=== PATIENT | female | born 1950 | race Caucasian/White ===

== ENCOUNTER 2019-10-30 18:46 | Inpatient (IN) | payer MEDICARE ==
[2019-10-30] MEDS ORDERED: diphenhydrAMINE 25 MG CAP PO PRN (22:31)
[2019-10-30] MEDS: ACETAMINOPHEN TAB 500 MG TAB PO SCH (22:41)
[2019-10-31] MEDS: ACETAMINOPHEN TAB 500 MG TAB PO SCH (03:57)
[2019-10-31] MEDS: HYDROcodone/APAP 5-325MG 1 EACH TAB PO PRN ×3 (06:39→16:30)
[2019-10-31 07:09] LABS: Basophils # (A) 0.1 k/uL (0-0.2); Basophils % (A) 1 %; Eosinophils # (A) 0.3 k/uL (0-0.7); Eosinophils % (A) 3 %; HCT 34.2 % (34.0-46.0); HGB 10.3 gm/dL (11.4-16.0); Hypochromasia Moderate; Lymphocytes # (A) 1.1 k/uL (1.0-4.8); Lymphocytes % (A) 9 %; MCH 27.2 pg (25.0-35.0); MCHC 30.2 g/dL (31.0-37.0); MCV 90.1 fL (80.0-100.0); Mean Platelet Volume 6.6; Monocytes # (A) 0.6 k/uL (0-1.0); Monocytes % (A) 5 %; Neutrophils # (A) 9.6 k/uL (1.3-7.7); Neutrophils % (A) 81 %; Platelet Count 384 k/uL (150-450); RDW 13.7 % (11.5-15.5); WBC 11.9 k/uL (3.8-10.6)
[2019-10-31 07:19] LABS: INR 0.9 (<1.2)
[2019-10-31 07:20] LABS: Partial Thromboplastin Time 23.9 sec (22.0-30.0); Potassium 4.5 mmol/L (3.5-5.1); Prothrombin Time 9.6 sec (9.0-12.0)
[2019-10-31 07:21] LABS: Albumin 3.2 g/dL (3.5-5.0); Bilirubin, Delta 0.3 mg/dL (0.0-0.2); Bilirubin,Unconjugated 0.1 mg/dL (0.0-1.1); Calcium 10.1 mg/dL (8.4-10.2); Magnesium 2.3 mg/dL (1.6-2.3); Total Bilirubin 0.4 mg/dL (0.2-1.3); Total Protein 6.2 g/dL (6.3-8.2)
[2019-10-31] MEDS: METOPROLOL TARTRATE 50 MG TAB PO SCH ×2 (08:18→22:13)
[2019-10-31] MEDS: lisinopriL 20 MG TAB PO SCH (08:18)
[2019-10-31] MEDS: SENNOSIDES 8.6 MG TAB PO SCH ×2 (08:18→22:17)
[2019-10-31] MEDS ORDERED: FAMOTIDINE 20 MG/2 ML VIAL IV SCH (09:00)
[2019-10-31] MEDS ORDERED: HEPARIN SODIUM,PORCINE 5,000 UNIT/ML 1 ML VIAL SQ SCH (09:00)
--- NOTE | 2019-10-31 09:03 | XR ---
EXAMINATION TYPE: XR chest 2V DATE OF EXAM: 10/31/2019 COMPARISON: None HISTORY: 69 year-old female shortness of breath TECHNIQUE: Frontal and lateral views FINDINGS: Heart borderline enlarged. Rightward patient rotation alters the normal cardiomediastinal contours. A therosclerotic arch calcifications. Mild interstitial prominence has a chronic appearance. No consoli dation or pleural effusion. IMPRESSION: Borderline heart size. Chronic appearing changes without acute cardiopulmonary process.
--- NOTE | 2019-10-31 10:05 | US ---
EXAMINATION TYPE: US venous doppler duplex LE BI DATE OF EXAM: 10/31/2019 9:44 AM COMPARISON: NONE CLINICAL HISTORY: 69-year-old female Rule out DVT. Pain SIDE PERFORMED: Bilateral FINDINGS: TECHNIQUE: The lower extremity deep venous system is examined utilizing real time linear array sonog robbin with graded compression, doppler sonography and color-flow sonography. VESSELS IMAGED: External Iliac Vein (EIV) Common Femoral Vein Deep Femoral Vein Greater Saphenous Vein * Femoral Vein Popliteal Vein Small Saphenous Vein * Urgent Care Physician notes: Exam limitations due to body habitus. Right Leg: Appears negative for DVT Left Leg: Appears negative for DVT IMPRESSION: Some limitations due to patient body habitus. No visualized DVT within the bilateral lower extremitie s as seen from the groin to the knees.
--- NOTE | 2019-10-31 11:00 | P.CONS ---
History of Present Illness - Reason for Consult Consult date: 10/31/19 Wound care - History of Present Illness This is a 69-year-old [place] female being seen on [address] for nonhealing ulcerations to the right lower extremity. Patient has ulceration to the posterior and lateral aspect of the right lower extremity. Patient's been seen by wound care in the past in [place]. She has been applying triple antibiotic ointment and wrapping her legs at home. Patient has compression w raps including CircAid which she does wear. Patient's past medical history includes hypertension and cellulitis 2 years ago. Patient denies diabetes or smoking Review of Systems Review Of Systems: Constitutional: No fever, no chills, no night sweats. No weight change. No weakness, fatigue or lethargy. No daytime sleepiness. Integumentary:reports wounds, no lesions. No rash or pruritus. No unusual bruising. No change in hair or nails. Past Medical History Past Medical History: Hypertension, Skin Disorder Additional Past Medical History / Comment(s): pt was diagnosed with cellulits 2 years ago. pt has HTN and is currently taking lisinopril and metoprolol for management. History of Any Multi-Drug Resistant Organisms: None Reported Past Surgical History: Section, Cholecystectomy, Joint Replacement, Tonsillectomy, Tubal Ligation Additional Past Surgical History / Comment(s): pt states she has had 3 c- sections, tubal ligation, knee replacement, and partial knee replacement removal. Past Anesthesia/Blood Transfusion Reactions: No Reported Reaction Past Psychological History: No Psychological Hx Reported Smoking Status: Never smoker Past Alcohol Use History: None Reported Past Drug Use History: None Reported Medications and Allergies Home Medications Medication Instructions Recorded Confirmed Type Acetaminophen Tab [Tylenol Tab] 500 mg PO Q6H 10/30/19 10/30/19 History Metoprolol Tartrate [Lopressor] 50 mg PO BID 10/30/19 10/30/19 History lisinopriL 20 mg PO DAILY 10/30/19 10/30/19 History Allergies Allergy/AdvReac Type Severity Reaction Status Date / Time No Known Allergies Allergy Verified 10/30/19 21:43 Physical Exam Vitals: Vital Signs Temp Pulse Resp BP Pulse Ox 10/31/19 08:00 98.7 F 83 16 135/59 96 10/31/19 04:00 98 F 75 20 147/65 98 10/31/19 00:00 98.5 F 84 20 148/70 100 10/30/19 21:41 98.6 F 71 22 142/61 99 Intake and Output 10/30/19 10/31/19 10/31/19 22:59 06:59 14:59 Intake Total 240 Balance 240 Intake: Oral 240 Other: Voiding Method Incontinent Incontinent # Voids 5 2 Weight 108.5 kg Physical exam: General Appearance: Alert, cooperative, no distress, appears stated age. Skin: Full thickness ulceration to the anterior aspect of the right lower extremity measuring approximately 3 x 6 x 0.4 cm with fatty layer exposure with significant amount of serous drainage minimal granulation seen within wound bed, large amount of adherent Slough, periwound shows edema and erythema, right lateral ulceration measures approximately 1 x 1 x 0.1 cm with fat layer exposure moderate slough noted and minimal granulation seen within the wound bed no drainage noted. Right lower extremity is edematous and weepy with the redness circumferential. all other Skin color, texture, tugor normal, no rashes or lesions. Neurologic: Alert oriented x3 Results CBC & Chem 7: 10/31/19 06:49 10/31/19 06:49 Labs: Abnormal Lab Results - Last 24 Hours (Table) 10/31/19 10/31/19 Range/Units 06:49 06:49 WBC 11.9 H (3.8-10.6) k/uL Hgb 10.3 L (11.4-16.0) gm/dL MCHC 30.2 L (31.0-37.0) g/dL Neutrophils # 9.6 H (1.3-7.7) k/uL Chloride 109 H (98-107) mmol/L BUN 24 H (7-17) mg/dL Creatinine 1.30 H (0.52-1.04) mg/dL Glucose 121 H (74-99) mg/dL Delta Bilirubin 0.3 H (0.0-0.2) mg/dL Total Protein 6.2 L (6.3-8.2) g/dL Albumin 3.2 L (3.5-5.0) g/dL Assessment and Plan (1) Nonhealing ulcer of right lower leg with fat layer exposed Current Visit: Yes Status: Acute Code(s): L97.912 - NON-PRS [facility] UNSP PRT OF R LOW LEG W FAT LAYER EXPOSED SNOMED Code(s): 69791764 (2) Nonhealing ulcer of left lower extremity limited to breakdown of skin Current Visit: Yes Status: Acute Code(s): L97.921 - NON-PRS [facility] UNSP PRT OF L LOW LEG LIMITED TO BRKDWN SKIN SNOMED Code(s): 58278317 (3) Chronic venous hypertension (idiopathic) with ulcer of right lower extremity Current Visit: Yes Status: Acute Code(s): I87.311 - CHRONIC VENOUS HYPERTENSION W ULCER OF R LOW EXTREM; L97.919 - NON-PRS [facility]RON[facility] UNSP PRT OF R LOW LEG W UNSP SEVERITY SNOMED Code(s): 658781503175958 (4) Chronic venous hypertension (idiopathic) with inflammation of left lower extremity Current Visit: Yes Status: Acute Code(s): I87.322 - CHRONIC VENOUS HYPERTENSION W INFLAMMATION OF L LOW EXTREM SNOMED Code(s): 000471895 Plan: Right lower survey apply honey alginate to anterior and lateral ulcerations, saline moistened gauze, dry gauze, rolled gauze and secure with paper tape and wrap with a Wilian wrap. Left lower extremity apply zinc. Cream to the lower extremity wrap with Wilian wrap. Patient to elevate legs 30 minutes 3 times a day. Patient would benefit from wound care and outpatient setting. Thank you kindly for the consultation any questions please contact the wound care center DNP note has been reviewed and discussed with Dr. Lucas and the impression and plan of care has been directed as dictated.
--- NOTE | 2019-10-31 12:28 | P.HPIM ---
History of Present Illness H&P Date: 10/31/19 Chief Complaint: Leg swelling Patient is a 69-year-old female with a known history of hypertension, chronic bilateral lower activity swelling, osteoarthritis and morbid obesity with BMI 39.8 initially presented to [facility] with complaints of bilateral lower extremity swelling and redness and purulent drainage from the wounds/ulcers especially on the right lower extremity which has been getting worse for the past 1 month. Patient says that she has not been walking very well for the past one half year since her right knee arthroplasty followed by osteomyelitis. Patient was previously seen at [facility] by the patient moved to [place] few months ago. Denied any history of coronary artery disease or history of prior CVA. No complaints of fever or chills. No nausea vomiting or abdominal pain or diarrhea. No dysuria or hematuria. Patient was transferred to [facility] for evolution of wounds and antibiotics. Laboratory data showed WBC 11.9, hemoglobin 10.3, platelets 384 Sodium 141, potassium 4.5, chloride 109, BUN 24 and creatinine 1.3 Albumin 3.2 Chest x-ray showed borderline heart size. Chronic appearing changes without acute cardiopulmonary process. Bilateral lower extremity venous duplex showed some limitations due to patient's body habitus. No visualized DVT within the bilateral lower extremities seen from the groin to the knees. Review of Systems Constitutional: Patient denies any fever or chills . No generalized weakness or weight loss. Abdomen: Patient denied nausea vomiting and diarrhea and abdominal pain. Cardiovascular: Patient denies any chest pain or short of breath no palpitations. Respiratory: patient denied any cough is from production. No shortness of henry ath Neurologic: Patient denied any numbness or tingling headache. Musculoskeletal: Patient denies any complaints of joint swelling or deformity. Skin: Bilateral lower extremity swelling and redness and weeping ulcers. Psychiatric: Negative Endocrine: No heat or cold intolerance. No recent weight gain. Genitourinary: No dysuria or hematuria. All other 14 point ROS negative except the above Past Medical History Past Medical History: Hypertension, Skin Disorder Additional Past Medical History / Comment(s): pt was diagnosed with cellulits 2 years ago. pt has HTN and is currently taking lisinopril and metoprolol for man agement. History of Any Multi-Drug Resistant Organisms: None Reported Past Surgical History: Section, Cholecystectomy, Joint Replacement, Ton sillectomy, Tubal Ligation Additional Past Surgical History / Comment(s): pt states she has had 3 c- sections, tubal ligation, knee replacement, and partial knee replacement re moval. Past Anesthesia/Blood Transfusion Reactions: No Reported Reaction Past Psychological History: No Psychological Hx Reported Smoking Status: Never smoker Past Alcohol Use History: None Reported Past Drug Use History: None Reported Medications and Allergies Home Medications Medication Instructions Recorded Confirmed Type Acetaminophen Tab [Tylenol Tab] 500 mg PO Q6H 10/30/19 10/30/19 History Metoprolol Tartrate [Lopressor] 50 mg PO BID 10/30/19 10/30/19 History lisinopriL 20 mg PO DAILY 10/30/19 10/30/19 History Allergies Allergy/AdvReac Type Severity Reaction Status Date / Time No Known Allergies Allergy Verified 10/30/19 21:43 Physical Exam Vitals: Vital Signs Temp Pulse Resp BP Pulse Ox 10/31/19 08:00 98.7 F 83 16 135/59 96 10/31/19 04:00 98 F 75 20 147/65 98 10/31/19 00:00 98.5 F 84 20 148/70 100 10/30/19 21:41 98.6 F 71 22 142/61 99 Intake and Output 10/30/19 10/31/19 10/31/19 22:59 06:59 14:59 Intake Total 240 Balance 240 Intake: Oral 240 Other: Voiding Method Incontinent Incontinent # Voids 5 2 Weight 108.5 kg PHYSICAL EXAMINATION: Patient is lying in the bed comfortably, no acute distress, awake alert and oriented.. HEENT: Normocephalic. Neck is supple. Pupils reactive. Nostrils clear. Oral c avity is moist. Ears reveal no drainage. Neck reveals no JVD, carotid bruits, or thyromegaly. CHEST EXAMINATION: Trachea is central. Symmetrical expansion. Bibasilar diminished air entry. Lung mchugh clear to auscultation and percussion. CARDIAC: Normal S1, S2 with no gallops. No murmurs ABDOMEN: Soft. Bowel sounds normal. No organomegaly. No abdominal bruits. Extremities: reveal no edema. No clubbing or cyanosis Neurologically awake, alert, oriented x3 with well-coordinated movements. No focal deficits noted Skin: Bilateral lower extremity swelling with redness and ulcers seen below the knee bilaterally. Purulent drainage and slugging of the skin noted.. Minimal tenderness. Warm to touch. Psychiatric: Coperative. Nonsuicidal Musculoskeletal: No joint swelling or deformity. Normal range of motion. Results CBC & Chem 7: 10/31/19 06:49 10/31/19 06:49 Labs: Abnormal Lab Results - Last 24 Hours (Table) 10/31/19 10/31/19 Range/Units 06:49 06:49 WBC 11.9 H (3.8-10.6) k/uL Hgb 10.3 L (11.4-16.0) gm/dL MCHC 30.2 L (31.0-37.0) g/dL Neutrophils # 9.6 H (1.3-7.7) k/uL Chloride 109 H (98-107) mmol/L BUN 24 H (7-17) mg/dL Creatinine 1.30 H (0.52-1.04) mg/dL Glucose 121 H (74-99) mg/dL Delta Bilirubin 0.3 H (0.0-0.2) mg/dL Total Protein 6.2 L (6.3-8.2) g/dL Albumin 3.2 L (3.5-5.0) g/dL Thrombosis Risk Factor Assmnt - DVT/VTE Prophylaxis DVT/VTE Prophylaxis: Pharmacologic Prophylaxis ordered - Choose All That Apply Any of the Below Risk Factors Present?: No Other Risk Factors: Yes Each Risk Factor Represents 2 Points: Age 61-74 years, Patient confined to bed Other congenital or acquired thrombophilia - If yes, enter type in comment: No Thrombosis Risk Factor Assessment Total Risk Factor Score: 4 Thrombosis Risk Factor Assessment Level: Moderate Risk Assessment and Plan Assessment: Bilateral lower extremity infected venous stasis ulcers with surrounding cellulitis. Chronic bilateral lower activity venous stasis and swelling Hypertension Chronic kidney disease stage III. Patient creatinine not known. Morbid obesity with BMI 39.8 Osteoarthritis History of right total knee arthroplasty and osteomyelitis about one half year ago DVT prophylaxis with heparin subcu Plan: Patient will be continued on antibiotics in the form of cefazolin. Continue with IV hydration and monitor renal function. Continue with the wound care and ID service will be consulted. Follow-up culture reports and further recommendations based on the clinical course. Time with Patient: Greater than 30
[2019-10-31] MEDS: HEPARIN SODIUM,PORCINE 5,000 UNIT/ML 1 ML VIAL SQ SCH (16:30)
[2019-10-31] MEDS: SODIUM CHLORIDE 0.9% 1,000 ML IV SCH ×2 (22:12→23:51)
[2019-10-31] MEDS: ACETAMINOPHEN TAB 325 MG TAB PO PRN (22:13)
[2019-11-01] MEDS: SODIUM CHLORIDE 0.9% 1,000 ML IV SCH (00:03)
[2019-11-01] MEDS: HYDROcodone/APAP 5-325MG 1 EACH TAB PO PRN ×3 (00:40→23:48)
[2019-11-01] MEDS: hydrALAZINE HCL 25 MG TAB PO PRN ×2 (00:41→04:21)
[2019-11-01] MEDS: HEPARIN SODIUM,PORCINE 5,000 UNIT/ML 1 ML VIAL SQ SCH ×3 (00:42→16:37)
--- NOTE | 2019-11-01 00:42 | P.CONS ---
History of Present Illness - Reason for Consult Consult date: 10/31/19 Bilateral lower extremity wound and cellulitis Requesting physician: Rojelio Contreras - Chief Complaint Bilateral leg swelling and redness x one month - History of Present Illness Patient is 69 year female with a past medical history significant for 1-2 lower extremity diffuse swelling and venous stasis and cellulitis in this patient previous history of lower extremity cellulitis patient presented to send this Hospital with complaints of bilateral lower extremity swelling and redness along with some drainage that has been getting worse for the last 1 month with significant worsening of the swelling redness and purulent drainage she went to the ER to be evaluated on arrival to the ER the patient was noticed to have elevated white count of 11.9 she did have a lower extremity Doppler dose was limited because of the body habitus but no obvious blood clots patient had been complaining of pain in the leg to be more of a dull aching at times sharp intensity is 6-7 out of 10 and no radiation with diffuse swelling and redness and purulent drainage but no foul-smelling patient was started on cefazolin and admitted to the hospital infectious disease was consulted for further management of diabetic therapy Review of Systems Positive point has been mentioned in the HPI rest of the systems are negative Past Medical History Past Medical History: Hypertension, Skin Disorder Additional Past Medical History / Comment(s): pt was diagnosed with cellulits 2 years ago. pt has HTN and is currently taking lisinopril and metoprolol for management. History of Any Multi-Drug Resistant Organisms: None Reported Past Surgical History: Section, Cholecystectomy, Joint Replacement, Tonsillectomy, Tubal Ligation Additional Past Surgical History / Comment(s): pt states she has had 3 c-sec tions, tubal ligation, knee replacement, and partial knee replacement removal. Past Anesthesia/Blood Transfusion Reactions: No Reported Reaction Past Psychological History: No Psychological Hx Reported Smoking Status: Never smoker Past Alcohol Use History: None Reported Past Drug Use History: None Reported Medications and Allergies Home Medications Medication Instructions Recorded Confirmed Type Acetaminophen Tab [Tylenol Tab] 500 mg PO Q6H 10/30/19 10/30/19 History Metoprolol Tartrate [Lopressor] 50 mg PO BID 10/30/19 10/30/19 History lisinopriL 20 mg PO DAILY 10/30/19 10/30/19 History Allergies Allergy/AdvReac Type Severity Reaction Status Date / Time No Known Allergies Allergy Verified 10/30/19 21:43 Physical Exam Vitals: Vital Signs Temp Pulse Resp BP Pulse Ox 10/31/19 12:00 64 16 173/71 10/31/19 11:39 16 10/31/19 08:00 98.7 F 83 16 135/59 96 10/31/19 04:00 98 F 75 20 147/65 98 10/31/19 00:00 98.5 F 84 20 148/70 100 10/30/19 21:41 98.6 F 71 22 142/61 99 Intake and Output 10/30/19 10/31/19 10/31/19 22:59 06:59 14:59 Intake Total 580 Balance 580 Intake: Intake, IV Titration 100 Amount ceFAZolin 2 gm In Sodium 100 Chloride 0.9% 50 ml @ 100 mls/hr IVPB Q8HR [facility] Rx# :[id number] Oral 480 Other: Voiding Method Incontinent Incontinent Incontinent # Voids 5 2 Weight 108.5 kg GENERAL DESCRIPTION: An 89 female lying in bed, no distress. No tachypnea or accessory muscle of respiration use. HEENT: Shows Pallor , no scleral icterus. Oral mucous membrane is dry. No pharyngeal erythema or thrush NECK: Trachea central, no thyromegaly. LUNGS: Unlabored breathing. Clear to auscultation anteriorly. No wheeze or crackle. HEART: S1, S2, regular rate and rhythm. No loud murmur ABDOMEN: Soft, no tenderness , guarding or rigidity, no organomegaly EXTREMITIES: Diffuse swelling of bilateral lower extremity in this patient did have ulceration on the right leg both anterior and posterior with some purulent drainage SKIN: No rash, no masses palpable. NEUROLOGICAL: The patient is awake, alert, oriented x3, mood and affect normal. Results CBC & Chem 7: 10/31/19 06:49 10/31/19 06:49 Labs: Abnormal Lab Results - Last 24 Hours (Table) 10/31/19 10/31/19 Range/Units 06:49 06:49 WBC 11.9 H (3.8-10.6) k/uL Hgb 10.3 L (11.4-16.0) gm/dL MCHC 30.2 L (31.0-37.0) g/dL Neutrophils # 9.6 H (1.3-7.7) k/uL Chloride 109 H (98-107) mmol/L BUN 24 H (7-17) mg/dL Creatinine 1.30 H (0.52-1.04) mg/dL Glucose 121 H (74-99) mg/dL Delta Bilirubin 0.3 H (0.0-0.2) mg/dL Total Protein 6.2 L (6.3-8.2) g/dL Albumin 3.2 L (3.5-5.0) g/dL Assessment and Plan Assessment: 1-patient with bilateral lower extremity venous stasis ulcer and cellulitis right greater than left. This patient did have diffuse swelling redness likely representing streptococcal cellulitis clinically doubt MRSA or gram-negative infection (1) Bilateral lower leg cellulitis Current Visit: Yes Status: Acute Code(s): L03.116 - CELLULITIS OF LEFT LOWER LIMB; L03.115 - CELLULITIS OF RIGHT LOWER LIMB SNOMED Code(s): 667391150 (2) Chronic venous hypertension (idiopathic) with inflammation of left lower extremity Current Visit: Yes Status: Acute Code(s): I87.322 - CHRONIC VENOUS HYPERTENSION W INFLAMMATION OF L LOW EXTREM SNOMED Code(s): 693727183 (3) Chronic venous hypertension (idiopathic) with ulcer of right lower extremity Current Visit: Yes Status: Acute Code(s): I87.311 - CHRONIC VENOUS HYPERTENSION W ULCER OF R LOW EXTREM; L97.919 - NON-PRS CHRONIC [facility] UNSP PRT OF R LOW LEG W UNSP SEVERITY SNOMED Code(s): 004562793838394 (4) Nonhealing ulcer of left lower extremity limited to breakdown of skin Current Visit: Yes Status: Acute Code(s): L97.921 - NON-PRS [facility] UNSP PRT OF L LOW LEG LIMITED TO BRKDWN SKIN SNOMED Code(s): 46582286 Plan: 1- cefazolin 2 g every 8 hours 2-local wound care per the wound care team however needs Wilian wrap to the legs to keep the swelling down We will follow on clinical condition and cultures to further adjust medication if needed Thank you for this consultation will follow this patient with you Time with Patient: Greater than 30
[2019-11-01] MEDS ORDERED: VANCOMYCIN IV PER PHARMACY 1 EACH MISC MISCELLANE PRN (08:41)
[2019-11-01] MEDS: FAMOTIDINE 20 MG TAB PO SCH (08:42)
[2019-11-01] MEDS: SENNOSIDES 8.6 MG TAB PO SCH ×2 (08:42→21:23)
[2019-11-01] MEDS: lisinopriL 20 MG TAB PO SCH (08:42)
[2019-11-01] MEDS: METOPROLOL TARTRATE 50 MG TAB PO SCH ×2 (08:42→21:23)
[2019-11-01] MEDS ORDERED: VANCOMYCIN 2,000 MG in SODIUM CHLORIDE 0.9% 500 ML 500 ML IVPB ONE (10:00)
--- NOTE | 2019-11-01 16:41 | PN ---
PROGRESS NOTE DATE OF SERVICE: 11/01/2019 REASON FOR FOLLOWUP: 1. Bilateral lower extremity wound cellulitis. 2. Bacteremia. INTERVAL HISTORY: Patient's clinical course complicated as the patient has developed bacteremia with blood cultures done at the outside facility has been reported positive for gram- positive cocci. The patient this morning is feeling weak, lethargic. Denies having any chest pain. No cough. No worsening pain in the lower extremity. No nausea, no vomiting. No abdominal pain or diarrhea. REVIEW OF SYSTEMS: Positive points have been mentioned in HPI. Rest of systems negative. PAST MEDICAL HISTORY: Reviewed. MEDICATIONS: Reviewed. PHYSICAL EXAMINATION: Blood pressure 155/71 with a pulse of 70, temperature 97.7. She is 94% on room air. General description is an elderly female, lying in bed in no distress. RESPIRATORY SYSTEM: Unlabored breathing, clear to auscultation anteriorly. HEART: S1, S2, regular. ABDOMEN: Soft, no tenderness. Legs are currently wrapped up. No obvious drainage on the dressing. LABS: No new labs have been obtained today. DIAGNOSTIC IMPRESSION AND PLAN: Patient with bilateral lower extremity wound, especially on the right leg with secondary cellulitis now with the outside facility blood culture positive for gram- positive cocci. We will add vancomycin, pharmacy to dose while watching her kidney function closely. Blood culture will be repeated to document clearance of bacteremia and will wait for the final on those cultures. Continue local wound care as ordered and monitor clinical course closely. RAMIROL / TISH: [id number] /
[2019-11-02] MEDS: HEPARIN SODIUM,PORCINE 5,000 UNIT/ML 1 ML VIAL SQ SCH ×3 (00:35→16:46)
[2019-11-02] MEDS: SODIUM CHLORIDE 0.9% 1,000 ML IV SCH ×3 (00:36→12:08)
[2019-11-02 06:55] LABS: Basophils # (A) 0.1 k/uL (0-0.2); Basophils % (A) 1 %; Eosinophils # (A) 0.5 k/uL (0-0.7); Eosinophils % (A) 4 %; HCT 32.9 % (34.0-46.0); Hypochromasia Moderate; Lymphocytes # (A) 1.5 k/uL (1.0-4.8); Lymphocytes % (A) 12 %; MCH 27.4 pg (25.0-35.0); MCHC 30.3 g/dL (31.0-37.0); MCV 90.4 fL (80.0-100.0); Mean Platelet Volume 7.5; Monocytes # (A) 0.6 k/uL (0-1.0); Monocytes % (A) 5 %; Neutrophils # (A) 9.4 k/uL (1.3-7.7); Neutrophils % (A) 77 %; Platelet Count 359 k/uL (150-450); RBC 3.64 m/uL (3.80-5.40); RDW 13.6 % (11.5-15.5); WBC 12.2 k/uL (3.8-10.6)
[2019-11-02 07:27] LABS: Calcium 9.3 mg/dL (8.4-10.2); Potassium 4.5 mmol/L (3.5-5.1)
[2019-11-02] MEDS ORDERED: VANCOMYCIN 2,000 MG in SODIUM CHLORIDE 0.9% 500 ML 500 ML IVPB SCH (08:00)
[2019-11-02] MEDS: HYDROcodone/APAP 5-325MG 1 EACH TAB PO PRN (09:09)
[2019-11-02] MEDS: FAMOTIDINE 20 MG TAB PO SCH (09:09)
[2019-11-02] MEDS: lisinopriL 20 MG TAB PO SCH (09:09)
[2019-11-02] MEDS: SENNOSIDES 8.6 MG TAB PO SCH ×2 (09:09→20:48)
[2019-11-02] MEDS: METOPROLOL TARTRATE 50 MG TAB PO SCH ×2 (09:09→20:48)
[2019-11-02] MEDS: VANCOMYCIN 2,000 MG in SODIUM CHLORIDE 0.9% 500 ML 500 ML IVPB SCH (16:47)
[2019-11-02] MEDS: hydrALAZINE HCL 25 MG TAB PO PRN (17:47)
--- NOTE | 2019-11-02 18:46 | PN ---
PROGRESS NOTE DATE OF SERVICE: 11/02/2019 REASON FOR FOLLOWUP: Bilateral lower extremity wounds, cellulitis and bacteremia. INTERVAL HISTORY: The patient is currently afebrile. The patient is breathing comfortably. The patient denies having any chest pain or cough. No nausea. No vomiting. No abdominal pain or any worsening pain to the lower extremities. PHYSICAL EXAMINATION: Blood pressure 146/63 with a pulse of 66, temperature 98.3. She is 95% on room air. General description is an elderly female lying in bed in no distress. RESPIRATORY SYSTEM: Unlabored breathing. Clear to auscultation anteriorly. HEART: S1, S2. Regular rate and rhythm. ABDOMEN: Soft. No tenderness. Legs are currently wrapped with minimal drainage on the dressing. LABS: Hemoglobin is 10 with a white count of 12.2, BUN of 29, creatinine 1.41. Blood culture drawn here has been negative so far. DIAGNOSTIC IMPRESSION AND PLAN: Patient with bilateral lower extremity wounds with secondary cellulitis with a positive blood culture at the outside facility. Plan at this time is to continue with vancomycin while waiting for the culture to finalize. Local wound care to continue as ordered. Continue supportive care. MMODL / IJN: [id number] /
[2019-11-03] MEDS: HYDROcodone/APAP 5-325MG 1 EACH TAB PO PRN ×3 (00:05→20:33)
[2019-11-03] MEDS: HEPARIN SODIUM,PORCINE 5,000 UNIT/ML 1 ML VIAL SQ SCH ×3 (00:05→17:09)
[2019-11-03] MEDS: hydrALAZINE HCL 25 MG TAB PO PRN (00:07)
--- NOTE | 2019-11-03 00:15 | P.PN ---
Subjective Progress Note Date: 11/01/19 Principal diagnosis: Bilateral lower extremity infected venous stasis ulcers with surrounding cellulitis. Patient is a 69-year-old female with a known history of hypertension, chronic bilateral lower activity swelling, osteoarthritis and morbid obesity with BMI 39.8 initially presented to [facility] with complaints of bilateral lower extremity swelling and redness and purulent drainage from the wounds/ulcers especially on the right lower extremity which has been getting worse for the past 1 month. Patient says that she has not been walking very well for the past one half year since her right knee arthroplasty followed by osteomyelitis. Patient was previously seen at [facility] by the patient moved to [place] few months ago. Denied any history of coronary artery disease or history of prior CVA. No complaints of fever or chills. No nausea vomiting or abdominal pain or diarrhea. No dysuria or hematuria. Patient was transferred to [facility] for evolution of wounds and antibiotics. Laboratory data showed WBC 11.9, hemoglobin 10.3, platelets 384 Sodium 141, potassium 4.5, chloride 109, BUN 24 and creatinine 1.3 Albumin 3.2 Chest x-ray showed borderline heart size. Chronic appearing changes without acute cardiopulmonary process. Bilateral lower extremity venous duplex showed some limitations due to patient's body habitus. No visualized DVT within the bilateral lower extremities seen from the groin to the knees. 11/01/2019 Patient is currently lying in the bed comfortably. Awake alert 13. Still having bilateral lower extremity redness and swelling is present. Currently being continued on IV antibiotics. ID is following. Outside hospital blood cultures came out positive. Patient has been afebrile. Current medications reviewed. Objective - Vital Signs Vital signs: Vital Signs Temp 97 F L 11/01/19 21:28 Pulse 83 11/01/19 21:28 Resp 17 11/01/19 21:28 BP 139/68 11/01/19 21:28 Pulse Ox 98 11/01/19 21:28 Intake & Output 11/01/19 11/01/19 11/02/19 06:59 18:59 06:59 Intake Total 1330 Output Total 800 1950 Balance -800 -620 Weight 107.5 kg Intake: Intake, IV Titration 600 Amount Vancomycin 2,000 mg In 500 Sodium Chloride 0.9% 500 ml 500 ml @ 167 mls/hr IVPB Q24H [facility] Rx#: [id number] ceFAZolin 2 gm In Sodium 100 Chloride 0.9% 50 ml @ 100 mls/hr IVPB Q8HR [facility] Rx# :[id number] Oral 730 Output: Urine 800 1950 Other: Voiding Method Incontinent Incontinent - Exam PHYSICAL EXAMINATION: Patient is lying in the bed comfortably, no acute distress, awake alert and mallory ented.. HEENT: Normocephalic. Neck is supple. Pupils reactive. Nostrils clear. Oral cavity is moist. Ears reveal no drainage. Neck reveals no JVD, carotid bruits, or thyromegaly. CHEST EXAMINATION: Trachea is central. Symmetrical expansion. Bibasilar diminished air entry. Lung mchugh clear to auscultation and percussion. CARDIAC: Normal S1, S2 with no gallops. No murmurs ABDOMEN: Soft. Bowel sounds normal. No organomegaly. No abdominal bruits. Extremities: reveal no edema. No clubbing or cyanosis Neurologically awake, alert, oriented x3 with well-coordinated movements. No focal deficits noted Skin: Bilateral lower extremity swelling with redness and ulcers seen below the knee bilaterally. Purulent drainage and slugging of the skin noted.. Minimal tenderness. Warm to touch. Psychiatric: Coperative. Nonsuicidal Musculoskeletal: No joint swelling or deformity. Normal range of motion. - Labs CBC & Chem 7: 11/02/19 05:42 11/02/19 05:42 Assessment and Plan Assessment: Bilateral lower extremity infected venous stasis ulcers with surrounding cellulitis. Chronic bilateral lower activity venous stasis and swelling Hypertension Chronic kidney disease stage III. Patient creatinine not known. Morbid obesity with BMI 39.8 Osteoarthritis History of right total knee arthroplasty and osteomyelitis about one half year ago DVT prophylaxis with heparin subcu Plan: Patient will be continued on antibiotics in the form of cefazolin. Changed to vancomycin. Continue with IV hydration and monitor renal function. Continue with the wound care and ID service Is following. Follow-up culture reports and further recommendations based on the clinical course. Time with Patient: Greater than 30
--- NOTE | 2019-11-03 00:20 | P.PN ---
Subjective Progress Note Date: 11/02/19 Principal diagnosis: Bilateral lower extremity infected venous stasis ulcers with surrounding cellulitis. Patient is a 69-year-old female with a known history of hypertension, chronic bilateral lower activity swelling, osteoarthritis and morbid obesity with BMI 39.8 initially presented to [facility] with complaints of bilateral lower extremity swelling and redness and purulent drainage from the wounds/ulcers especially on the right lower extremity which has been getting worse for the past 1 month. Patient says that she has not been walking very well for the past one half year since her right knee arthroplasty followed by osteomyelitis. Patient was previously seen at [facility] by the patient moved to [place] few months ago. Denied any history of coronary artery disease or history of prior CVA. No complaints of fever or chills. No nausea vomiting or abdominal pain or diarrhea. No dysuria or hematuria. Patient was transferred to [facility] for evolution of wounds and antibiotics. Laboratory data showed WBC 11.9, hemoglobin 10.3, platelets 384 Sodium 141, potassium 4.5, chloride 109, BUN 24 and creatinine 1.3 Albumin 3.2 Chest x-ray showed borderline heart size. Chronic appearing changes without acute cardiopulmonary process. Bilateral lower extremity venous duplex showed some limitations due to patient's body habitus. No visualized DVT within the bilateral lower extremities seen from the groin to the knees. 11/01/2019 Patient is currently lying in the bed comfortably. Awake alert 13. Still having bilateral lower extremity redness and swelling is present. Currently being continued on IV antibiotics. ID is following. Outside hospital blood cultures came out positive. Patient has been afebrile. 11/02/2019 Patient is still having bilateral lower extremity redness. Both legs are Wilian wrapped. No complaints of fever or chills. No nausea vomiting or abdominal pain. Currently on vancomycin. Blood cultures showed no growth. [facility] blood cultures were positive. Otherwise patient denied any nausea vomiting or abdominal pain or diarrhea. No cough or sputum production. No chest pain or shortness breath. ID is on board. Current medications reviewed. Objective - Vital Signs Vital signs: Vital Signs Temp 98.6 F 11/02/19 17:45 Pulse 71 11/02/19 17:45 Resp 18 11/02/19 17:45 BP 199/79 11/02/19 17:45 Pulse Ox 95 11/02/19 17:45 Intake & Output 11/02/19 11/02/19 11/03/19 06:59 18:59 06:59 Intake Total 1350 Output Total 400 900 Balance -400 450 Weight 123 kg Intake: Intake, IV Titration 750 Amount Sodium Chloride 0.9% 1, 550 000 ml @ 75 mls/hr IV . [id number] [facility] Rx#:[id number] ceFAZolin 2 gm In Sodium 200 Chloride 0.9% 50 ml @ 100 mls/hr IVPB Q8HR [facility] Rx# :[id number] Oral 600 Output: Urine 400 900 Other: Voiding Method Incontinent Incontinent Incontinent # Voids 0 - Exam PHYSICAL EXAMINATION: Patient is lying in the bed comfortably, no acute distress, awake alert and oriented.. HEENT: Normocephalic. Neck is supple. Pupils reactive. Nostrils clear. Oral cavity is moist. Ears reveal no drainage. Neck reveals no JVD, carotid bruits, or thyromegaly. CHEST EXAMINATION: Trachea is central. Symmetrical expansion. Bibasilar diminished air entry. Lung mchugh clear to auscultation and percussion. CARDIAC: Normal S1, S2 with no gallops. No murmurs ABDOMEN: Soft. Bowel sounds normal. No organomegaly. No abdominal bruits. Extremities: reveal no edema. No clubbing or cyanosis Neurologically awake, alert, oriented x3 with well-coordinated movements. No focal deficits noted Skin: Bilateral lower extremity swelling with redness and ulcers seen below the knee bilaterally. Purulent drainage and slugging of the skin noted.. Minimal tenderness. Warm to touch. Psychiatric: Coperative. Nonsuicidal Musculoskeletal: No joint swelling or deformity. Normal range of motion. - Labs CBC & Chem 7: 11/02/19 05:42 11/02/19 05:42 Labs: Abnormal Lab Results - Last 24 Hours (Table) 11/02/19 11/02/19 Range/Units 05:42 05:42 WBC 12.2 H (3.8-10.6) k/uL RBC 3.64 L (3.80-5.40) m/uL Hgb 10.0 L (11.4-16.0) gm/dL Hct 32.9 L (34.0-46.0) % MCHC 30.3 L (31.0-37.0) g/dL Neutrophils # 9.4 H (1.3-7.7) k/uL Chloride 110 H (98-107) mmol/L BUN 29 H (7-17) mg/dL Creatinine 1.41 H (0.52-1.04) mg/dL Microbiology - Last 24 Hours (Table) 11/01/19 09:09 Blood Culture - Preliminary Blood No Growth after 24 hours Assessment and Plan Assessment: Bilateral lower extremity infected venous stasis ulcers with surrounding cellulitis. Chronic bilateral lower activity venous stasis and swelling Hypertension Chronic kidney disease stage III. Patient creatinine not known. Morbid obesity with BMI 39.8 Osteoarthritis History of right total knee arthroplasty and osteomyelitis about one half year ago DVT prophylaxis with heparin subcu Plan: Patient will be continued on antibiotics in the form of cefazolin. Changed to vancomycin. Continue with IV hydration and monitor renal function. Continue with the wound care and ID service Is following. Follow-up culture reports and further recommendations based on the clinical course.
[2019-11-03 07:17] LABS: Basophils # (A) 0.1 k/uL (0-0.2); Basophils % (A) 1 %; Eosinophils # (A) 0.8 k/uL (0-0.7); Eosinophils % (A) 9 %; HCT 32.3 % (34.0-46.0); HGB 9.8 gm/dL (11.4-16.0); Hypochromasia Marked; Lymphocytes # (A) 1.6 k/uL (1.0-4.8); Lymphocytes % (A) 16 %; MCH 27.7 pg (25.0-35.0); MCHC 30.3 g/dL (31.0-37.0); MCV 91.3 fL (80.0-100.0); Monocytes # (A) 0.6 k/uL (0-1.0); Monocytes % (A) 7 %; Neutrophils # (A) 6.5 k/uL (1.3-7.7); Neutrophils % (A) 67 %; Platelet Count 370 k/uL (150-450); RBC 3.54 m/uL (3.80-5.40); RDW 13.4 % (11.5-15.5); WBC 9.8 k/uL (3.8-10.6)
[2019-11-03 07:32] LABS: Calcium 9.4 mg/dL (8.4-10.2); Potassium 4.7 mmol/L (3.5-5.1)
[2019-11-03] MEDS: FAMOTIDINE 20 MG TAB PO SCH (08:54)
[2019-11-03] MEDS: METOPROLOL TARTRATE 50 MG TAB PO SCH ×2 (08:54→20:33)
[2019-11-03] MEDS: SENNOSIDES 8.6 MG TAB PO SCH ×2 (08:54→20:33)
[2019-11-03] MEDS: lisinopriL 20 MG TAB PO SCH (08:55)
[2019-11-03] MEDS: VANCOMYCIN 2,000 MG in SODIUM CHLORIDE 0.9% 500 ML 500 ML IVPB SCH (13:50)
--- NOTE | 2019-11-03 15:48 | P.PN ---
Subjective Progress Note Date: 11/03/19 Principal diagnosis: Bilateral lower extremity cellulitis Venous stasis ulcer 69-year-old female with a known history of hypertension, chronic bilateral lower activity swelling, osteoarthritis and morbid obesity with BMI 39.8 initially presented to [facility] with complaints of bilateral lower extremity swelling and redness and purulent drainage from the wounds/ulcers especially on the right lower extremity which has been getting worse for the past 1 month. Patient says that she has not been walking very well for the past one half year since her right knee arthroplasty followed by osteomyelitis. Patient was previously seen at [facility] by the patient moved to [place] few months ago. Patient was transferred to [facility] for evolution of wounds and antibiotics. Laboratory data showed WBC 11.9, hemoglobin 10.3, platelets 384 Sodium 141, potassium 4.5, chloride 109, BUN 24 and creatinine 1.3 11/03/2019 Patient is seen and evaluated in room with family members at bedside; denies any specific complaints Vital signs remained stable with a temperature of 98.6, pulse 63, respirations 16 and blood pressure 151/70 Lab review reveals BUN/creatinine improving from 29/1.4 down to 26/1.36; blood cultures are positive and final culture and sensitivities pending; ID is on board and recommending to continue with IV vancomycin to final culture results are available Objective - Vital Signs Vital signs: Vital Signs Temp 98.9 F 11/03/19 08:00 Pulse 75 11/03/19 08:00 Resp 18 11/03/19 08:00 BP 151/72 11/03/19 08:00 Pulse Ox 95 11/03/19 08:00 Intake & Output 11/02/19 11/03/19 11/03/19 18:59 06:59 18:59 Intake Total 1350 240 Output Total 900 1100 650 Balance 450 -1100 -410 Weight 97.5 kg Intake: Intake, IV Titration 750 Amount Sodium Chloride 0.9% 1, 550 000 ml @ 75 mls/hr IV . [id number] [facility] Rx#:[id number] ceFAZolin 2 gm In Sodium 200 Chloride 0.9% 50 ml @ 100 mls/hr IVPB Q8HR [facility] Rx# :[id number] Oral 600 240 Output: Urine 900 1100 650 Other: Voiding Method Incontinent Incontinent Incontinent # Voids 0 1 # Bowel Movements 1 - Exam PHYSICAL EXAMINATION: GENERAL: The patient is alert and oriented x3, not in any acute distress. Well developed, well nourished. HEENT: Pupils are round and equally reacting to light. EOMI. No scleral icterus. No conjunctival pallor. Normocephalic, atraumatic. No pharyngeal erythema. No thyromegaly. CARDIOVASCULAR: S1 and S2 present. No murmurs, rubs, or gallops. PULMONARY: Chest is clear to auscultation, no wheezing or crackles. ABDOMEN: Soft, nontender, nondistended, normoactive bowel sounds. No palpable organomegaly. MUSCULOSKELETAL: No joint swelling or deformity. EXTREMITIES: No cyanosis, clubbing, or pedal edema. NEUROLOGICAL: Gross neurological examination did not reveal any focal deficits. SKIN: No rashes. - Labs CBC & Chem 7: 11/03/19 05:32 11/03/19 05:32 Labs: Abnormal Lab Results - Last 24 Hours (Table) 11/03/19 11/03/19 Range/Units 05:32 05:32 RBC 3.54 L (3.80-5.40) m/uL Hgb 9.8 L (11.4-16.0) gm/dL Hct 32.3 L (34.0-46.0) % MCHC 30.3 L (31.0-37.0) g/dL Eosinophils # 0.8 H (0-0.7) k/uL Chloride 110 H (98-107) mmol/L BUN 26 H (7-17) mg/dL Creatinine 1.36 H (0.52-1.04) mg/dL Microbiology - Last 24 Hours (Table) 11/01/19 09:09 Blood Culture - Preliminary Blood No Growth after 24 hours Assessment and Plan Assessment: Bilateral lower extremity infected venous stasis ulcers with surrounding cellulitis. Chronic bilateral lower activity venous stasis and swelling Hypertension Chronic kidney disease stage III. Patient creatinine not known. Morbid obesity with BMI 39.8 Osteoarthritis History of right total knee arthroplasty and osteomyelitis about one half year ago DVT prophylaxis with heparin subcu Plan: Patient will be continued on antibiotics in the form of cefazolin. Changed to vancomycin. Continue with IV hydration and monitor renal function. Continue with the wound care and ID service Is following. Follow-up culture reports and further recommendations based on the clinical course.
--- NOTE | 2019-11-03 17:22 | PN ---
PROGRESS NOTE DATE OF SERVICE: 11/03/2019 REASON FOR FOLLOWUP: Bilateral lower extremity wound cellulitis and bacteremia. INTERVAL HISTORY: The patient is currently afebrile. The patient is breathing comfortably. The patient denies having any chest pain. No shortness of breath. No nausea, no abdominal pain. Overall pain to the lower extremity has improved. PHYSICAL EXAMINATION: Blood pressure 136/62 with a pulse of 64, temperature 98.3, she is 97% on room air. General description is an elderly female, lying in bed in no distress. RESPIRATORY SYSTEM: Unlabored breathing, clear to auscultation anteriorly. HEART: S1, S2. Regular rate and rhythm. ABDOMEN: Soft. No tenderness. Legs are currently wrapped up. Minimal drainage on the dressing. LABS: Hemoglobin is 9.8, white count 9.8. BUN of 26, creatinine 1.36. Blood culture has been negative. DIAGNOSTIC IMPRESSION AND PLAN: Patient with bilateral lower extremity wound, right calf and left with a component of cellulitis. She did have positive blood cultures. Currently waiting for the final report on the time of discharge, antibiotics continue cefazolin and vancomycin. Local care as ordered. Continue supportive care. MMODL / IJN: [id number] /
[2019-11-04] MEDS: hydrALAZINE HCL 25 MG TAB PO PRN ×2 (00:14→19:52)
[2019-11-04] MEDS: HEPARIN SODIUM,PORCINE 5,000 UNIT/ML 1 ML VIAL SQ SCH ×4 (00:14→23:49)
[2019-11-04 06:50] LABS: Basophils # (A) 0.1 k/uL (0-0.2); Basophils % (A) 1 %; Eosinophils # (A) 0.8 k/uL (0-0.7); Eosinophils % (A) 8 %; HCT 32.5 % (34.0-46.0); HGB 9.7 gm/dL (11.4-16.0); Hypochromasia Moderate; Lymphocytes # (A) 1.1 k/uL (1.0-4.8); Lymphocytes % (A) 11 %; MCH 27.1 pg (25.0-35.0); MCHC 29.9 g/dL (31.0-37.0); MCV 90.6 fL (80.0-100.0); Mean Platelet Volume 8.1; Monocytes # (A) 0.7 k/uL (0-1.0); Monocytes % (A) 8 %; Neutrophils # (A) 6.9 k/uL (1.3-7.7); Neutrophils % (A) 71 %; Platelet Count 340 k/uL (150-450); RBC 3.59 m/uL (3.80-5.40); RDW 13.7 % (11.5-15.5); WBC 9.7 k/uL (3.8-10.6)
[2019-11-04 07:18] LABS: Calcium 9.7 mg/dL (8.4-10.2); Potassium 4.5 mmol/L (3.5-5.1)
[2019-11-04] MEDS: METOPROLOL TARTRATE 50 MG TAB PO SCH ×2 (09:23→19:52)
[2019-11-04] MEDS: SENNOSIDES 8.6 MG TAB PO SCH ×2 (09:23→19:52)
[2019-11-04] MEDS: lisinopriL 20 MG TAB PO SCH (09:23)
[2019-11-04] MEDS: ACETAMINOPHEN TAB 325 MG TAB PO PRN (09:26)
[2019-11-04] MEDS: FAMOTIDINE 20 MG TAB PO SCH (09:26)
[2019-11-04] MEDS: VANCOMYCIN 2,000 MG in SODIUM CHLORIDE 0.9% 500 ML 500 ML IVPB SCH (15:32)
--- NOTE | 2019-11-04 15:43 | PN ---
PROGRESS NOTE DATE OF SERVICE: 11/04/2019 REASON FOR FOLLOWUP: Bilateral lower extremity wound and cellulitis with gram-positive bacteremia. INTERVAL HISTORY: Patient is currently afebrile, patient is breathing comfortably. Denies having any chest pain. No shortness of breath or cough. No nausea, no vomiting. No abdominal pain. Overall swelling and redness and pain to the leg has decreased. PHYSICAL EXAMINATION: Blood pressure 152/62 with a pulse of 71, temperature 98.5. She is 94% on room air. General description is an elderly female lying in bed in no distress. Respiratory system: Unlabored breathing, clear to auscultation anteriorly. Heart S1, S2. Regular rate and rhythm. Abdomen is soft and nontender. Leg is currently dressed up. No obvious drainage on the dressing. LABS: Hemoglobin 9.7, white count 9.7, BUN of 23, creatinine 1.27. Blood culture has been negative. DIAGNOSTIC IMPRESSION AND PLAN: Patient with bilateral lower extremity wound and cellulitis, right greater than left. This patient did have positive blood culture at [facility]. We are still awaiting for the final on those blood cultures. Blood cultures have been negative. Currently covered with vancomycin to continue. Discharge antibiotic depending upon the culture from [place]. Will try to obtain. Continue local wound care as ordered. MMODL / IJN: [id number] /
--- NOTE | 2019-11-04 17:50 | P.PN ---
Subjective Progress Note Date: 11/04/19 Principal diagnosis: Bilateral lower extremity cellulitis Venous stasis ulcer 69-year-old female with a known history of hypertension, chronic bilateral lower activity swelling, osteoarthritis and morbid obesity with BMI 39.8 initially presented to [facility] with complaints of bilateral lower extremity swelling and redness and purulent drainage from the wounds/ulcers especially on the right lower extremity which has been getting worse for the past 1 month. Patient says that she has not been walking very well for the past one half year since her right knee arthroplasty followed by osteomyelitis. Patient was previously seen at [facility] by the patient moved to [place] few months ago. Patient was transferred to [facility] for evolution of wounds and antibiotics. Laboratory data showed WBC 11.9, hemoglobin 10.3, platelets 384 Sodium 141, potassium 4.5, chloride 109, BUN 24 and creatinine 1.3 11/03/2019 Patient is seen and evaluated in room with family members at bedside; denies any specific complaints Vital signs remained stable with a temperature of 98.6, pulse 63, respirations 16 and blood pressure 151/70 Lab review reveals BUN/creatinine improving from 29/1.4 down to 26/1.36; blood cultures are positive and final culture and sensitivities pending; ID is on board and recommending to continue with IV vancomycin to final culture results are available 11/04/2019 Patient is evaluated resting comfortably in bed; voices no new complaints; vital signs remained stable Laboratory review shows a normal WBC of 9.7, BUN/creatinine improved from 26/1.36 down to 23/1.27; patient remains on IV cefepime and vancomycin until final culture and sensitivity results are available; blood culture is positive; ID on board and await final culture results for final adjustment Objective - Vital Signs Vital signs: Vital Signs Temp 98.7 F 11/04/19 09:19 Pulse 75 11/04/19 09:19 Resp 16 11/04/19 09:20 BP 145/59 11/04/19 09:19 Pulse Ox 95 11/04/19 09:19 Intake & Output 11/03/19 11/04/19 11/04/19 18:59 06:59 18:59 Intake Total 598 350 360 Output Total 2400 350 Balance -1802 0 360 Weight 98.5 kg Intake: IV 60 Invasive Line 2 10 ceFAZolin 2 gm In Sodium 50 Chloride 0.9% 50 ml @ 100 mls/hr IVPB Q8HR [facility] Rx# :[id number] Intake, IV Titration 50 Amount ceFAZolin 2 gm In Sodium 50 Chloride 0.9% 50 ml @ 100 mls/hr IVPB Q8HR [facility] Rx# :[id number] Oral 598 300 300 Output: Urine 2400 350 Other: Voiding Method Incontinent Incontinent Incontinent # Bowel Movements 1 - Exam PHYSICAL EXAMINATION: GENERAL: The patient is alert and oriented x3, not in any acute distress. Well developed, well nourished. HEENT: Pupils are round and equally reacting to light. EOMI. No scleral icterus. No conjunctival pallor. Normocephalic, atraumatic. No pharyngeal erythema. No thyromegaly. CARDIOVASCULAR: S1 and S2 present. No murmurs, rubs, or gallops. PULMONARY: Chest is clear to auscultation, no wheezing or crackles. ABDOMEN: Soft, nontender, nondistended, normoactive bowel sounds. No palpable organomegaly. MUSCULOSKELETAL: No joint swelling or deformity. EXTREMITIES: No cyanosis, clubbing, or pedal edema. NEUROLOGICAL: Gross neurological examination did not reveal any focal deficits. SKIN: No rashes. - Labs CBC & Chem 7: 11/04/19 05:50 11/04/19 05:50 Labs: Abnormal Lab Results - Last 24 Hours (Table) 11/04/19 11/04/19 Range/Units 05:50 05:50 RBC 3.59 L (3.80-5.40) m/uL Hgb 9.7 L (11.4-16.0) gm/dL Hct 32.5 L (34.0-46.0) % MCHC 29.9 L (31.0-37.0) g/dL Eosinophils # 0.8 H (0-0.7) k/uL Chloride 109 H (98-107) mmol/L BUN 23 H (7-17) mg/dL Creatinine 1.27 H (0.52-1.04) mg/dL Microbiology - Last 24 Hours (Table) 11/01/19 09:09 Blood Culture - Preliminary Blood No Growth after 48 hours Assessment and Plan Assessment: Bilateral lower extremity infected venous stasis ulcers with surrounding cellulitis. Chronic bilateral lower activity venous stasis and swelling Hypertension Chronic kidney disease stage III. Patient creatinine not known. Morbid obesity with BMI 39.8 Osteoarthritis History of right total knee arthroplasty and osteomyelitis about one half year ago DVT prophylaxis with heparin subcu Plan: Patient will be continued on antibiotics in the form of cefazolin. Changed to vancomycin. Continue with IV hydration and monitor renal function. Continue with the wound care and ID service Is following. Follow-up culture reports and further recommendations based on the clinical course.
[2019-11-04] MEDS: HYDROcodone/APAP 5-325MG 1 EACH TAB PO PRN (22:51)
[2019-11-05 06:22] LABS: Basophils # (A) 0.1 k/uL (0-0.2); Basophils % (A) 1 %; Eosinophils # (A) 0.7 k/uL (0-0.7); Eosinophils % (A) 8 %; HCT 32.6 % (34.0-46.0); HGB 9.8 gm/dL (11.4-16.0); Hypochromasia Moderate; Lymphocytes # (A) 1.4 k/uL (1.0-4.8); Lymphocytes % (A) 16 %; MCH 27.4 pg (25.0-35.0); MCHC 30.2 g/dL (31.0-37.0); MCV 90.6 fL (80.0-100.0); Monocytes # (A) 0.8 k/uL (0-1.0); Monocytes % (A) 9 %; Neutrophils # (A) 5.8 k/uL (1.3-7.7); Neutrophils % (A) 65 %; Platelet Count 339 k/uL (150-450); RDW 13.9 % (11.5-15.5); WBC 8.8 k/uL (3.8-10.6)
[2019-11-05 06:38] LABS: Calcium 9.5 mg/dL (8.4-10.2); Potassium 4.4 mmol/L (3.5-5.1)
[2019-11-05] MEDS: lisinopriL 20 MG TAB PO SCH (08:47)
[2019-11-05] MEDS: METOPROLOL TARTRATE 50 MG TAB PO SCH ×2 (08:48→20:05)
[2019-11-05] MEDS: HEPARIN SODIUM,PORCINE 5,000 UNIT/ML 1 ML VIAL SQ SCH ×3 (08:48→23:48)
[2019-11-05] MEDS: SENNOSIDES 8.6 MG TAB PO SCH ×2 (08:48→20:04)
[2019-11-05] MEDS: FAMOTIDINE 20 MG TAB PO SCH (08:48)
[2019-11-05] MEDS ORDERED: VANCOMYCIN TROUGH DUE 1 EACH MISC MISCELLANE ONE (13:00)
[2019-11-05] MEDS: VANCOMYCIN 2,000 MG in SODIUM CHLORIDE 0.9% 500 ML 500 ML IVPB SCH (13:45)
--- NOTE | 2019-11-05 17:02 | P.PN ---
Subjective Progress Note Date: 11/05/19 Principal diagnosis: Bilateral lower extremity cellulitis Venous stasis ulcer 69-year-old female with a known history of hypertension, chronic bilateral lower activity swelling, osteoarthritis and morbid obesity with BMI 39.8 initially presented to [facility] with complaints of bilateral lower extremity swelling and redness and purulent drainage from the wounds/ulcers especially on the right lower extremity which has been getting worse for the past 1 month. Patient says that she has not been walking very well for the past one half year since her right knee arthroplasty followed by osteomyelitis. Patient was previously seen at [facility] by the patient moved to [place] few months ago. Patient was transferred to [facility] for evolution of wounds and antibiotics. Laboratory data showed WBC 11.9, hemoglobin 10.3, platelets 384 Sodium 141, potassium 4.5, chloride 109, BUN 24 and creatinine 1.3 11/03/2019 Patient is seen and evaluated in room with family members at bedside; denies any specific complaints Vital signs remained stable with a temperature of 98.6, pulse 63, respirations 16 and blood pressure 151/70 Lab review reveals BUN/creatinine improving from 29/1.4 down to 26/1.36; blood cultures are positive and final culture and sensitivities pending; ID is on board and recommending to continue with IV vancomycin to final culture results are available 11/04/2019 Patient is evaluated resting comfortably in bed; voices no new complaints; vital signs remained stable Laboratory review shows a normal WBC of 9.7, BUN/creatinine improved from 26/1.36 down to 23/1.27; patient remains on IV cefepime and vancomycin until final culture and sensitivity results are available; blood culture is positive; ID on board and await final culture results for final adjustment 11/05/2019 Patient is seen and evaluated for follow-up; no specific complaints; reports improvement in redness and right lower extremity but reports that it tends to fluctuate Lab review shows a normal white blood count of 8.6, hemoglobin of 8.9, sodium of 133, potassium is improved to 5.1 from 5.4 yesterday and B UN/creatinine improved to 54/1.13 from 55/1.33 yesterday; blood glucose remains elevated ranging between 197 -298; blood cultures from [place] are still pending; IDs following and recommending to continue with cefepime and vancomycin with final choice of antibiotics once culture results are available Objective - Vital Signs Vital signs: Vital Signs Temp 97.6 F 11/05/19 08:43 Pulse 69 11/05/19 08:46 Resp 18 11/05/19 08:46 BP 171/73 11/05/19 08:43 Pulse Ox 95 11/05/19 08:43 Intake & Output 11/04/19 11/05/19 11/05/19 18:59 06:59 18:59 Intake Total 926 250 Output Total 1350 300 Balance -424 -50 Weight 111 kg Intake: IV 90 20 Invasive Line 2 30 10 Invasive Line 3 10 10 ceFAZolin 2 gm In Sodium 50 Chloride 0.9% 50 ml @ 100 mls/hr IVPB Q8HR [facility] Rx# :[id number] Oral 836 230 Output: Urine 1350 300 Other: Voiding Method Incontinent Incontinent Incontinent # Voids 1 # Bowel Movements 1 - Exam PHYSICAL EXAMINATION: GENERAL: The patient is alert and oriented x3, not in any acute distress. Well developed, well nourished. HEENT: Pupils are round and equally reacting to light. EOMI. No scleral icterus. No conjunctival pallor. Normocephalic, atraumatic. No pharyngeal erythema. No thyromegaly. CARDIOVASCULAR: S1 and S2 present. No murmurs, rubs, or gallops. PULMONARY: Chest is clear to auscultation, no wheezing or crackles. ABDOMEN: Soft, nontender, nondistended, normoactive bowel sounds. No palpable organomegaly. MUSCULOSKELETAL: No joint swelling or deformity. EXTREMITIES: No cyanosis, clubbing, or pedal edema. NEUROLOGICAL: Gross neurological examination did not reveal any focal deficits. SKIN: No rashes. - Labs CBC & Chem 7: 11/05/19 05:34 11/05/19 05:34 Labs: Abnormal Lab Results - Last 24 Hours (Table) 11/05/19 11/05/19 Range/Units 05:34 05:34 RBC 3.60 L (3.80-5.40) m/uL Hgb 9.8 L (11.4-16.0) gm/dL Hct 32.6 L (34.0-46.0) % MCHC 30.2 L (31.0-37.0) g/dL Chloride 111 H (98-107) mmol/L BUN 22 H (7-17) mg/dL Creatinine 1.23 H (0.52-1.04) mg/dL Microbiology - Last 24 Hours (Table) 11/01/19 09:09 Blood Culture - Preliminary Blood No Growth after 72 hours Assessment and Plan Assessment: Bilateral lower extremity infected venous stasis ulcers with surrounding cellulitis. Chronic bilateral lower activity venous stasis and swelling Hypertension Chronic kidney disease stage III. Patient creatinine not known. Morbid obesity with BMI 39.8 Osteoarthritis History of right total knee arthroplasty and osteomyelitis about one half year ago DVT prophylaxis with heparin subcu Plan: Patient will be continued on antibiotics in the form of cefazolin. Changed to vancomycin. Continue with IV hydration and monitor renal function. Continue with the wound care and ID service Is following. Follow-up culture reports and further recommendations based on the clinical course.
[2019-11-05] MEDS: hydrALAZINE HCL 25 MG TAB PO PRN (20:04)
--- NOTE | 2019-11-05 21:34 | PN ---
PROGRESS NOTE DATE OF SERVICE: 11/05/2019 REASON FOR FOLLOWUP: Bilateral lower extremity wound cellulitis and bacteremia. INTERVAL HISTORY: Patient is currently afebrile. The patient is breathing comfortably. Denies having any chest pain, shortness of breath or cough. No nausea, vomiting. No abdominal pain or pain to the lower extremity. PHYSICAL EXAMINATION: Blood pressure 118/60 with a pulse of 63, temperature 98.3. She is 97% on room air. General description is an elderly female lying in bed in no distress. Respiratory system: Unlabored breathing, clear to auscultation anteriorly. Heart S1, S2. Regular rate and rhythm. Abdomen soft, no tenderness. Lower extremity swelling and redness has decreased. The wound base with no slough tissue or any drainage. LABS: Hemoglobin 9.8, white count 8.8 with a BUN of 22, creatinine 1.23. Blood culture has been negative. Still waiting for the final on the blood cultures at the outside facility. DIAGNOSTIC IMPRESSION AND PLAN: Patient with bilateral lower extremity venostasis ulcer with secondary cellulitis and bacteremia, trying to obtain culture final report from [facility] to determine her discharge antibiotics. Continue with vancomycin and local wound care with dry Aquacel Silver dressing and Wilian wrap. Continue supportive care. MMODL / IJN: [id number] /
[2019-11-05] MEDS: HYDROcodone/APAP 5-325MG 1 EACH TAB PO PRN (22:10)
[2019-11-06] MEDS: hydrALAZINE HCL 25 MG TAB PO PRN ×5 (04:37→23:53)
[2019-11-06 06:54] LABS: Basophils # (A) 0.1 k/uL (0-0.2); Basophils % (A) 1 %; Eosinophils # (A) 0.7 k/uL (0-0.7); Eosinophils % (A) 8 %; HCT 33.5 % (34.0-46.0); HGB 9.9 gm/dL (11.4-16.0); Hypochromasia Moderate; Lymphocytes # (A) 1.4 k/uL (1.0-4.8); Lymphocytes % (A) 16 %; MCH 26.8 pg (25.0-35.0); MCHC 29.6 g/dL (31.0-37.0); MCV 90.5 fL (80.0-100.0); Mean Platelet Volume 7.2; Monocytes # (A) 0.6 k/uL (0-1.0); Monocytes % (A) 7 %; Neutrophils % (A) 67 %; Platelet Count 333 k/uL (150-450); RDW 13.9 % (11.5-15.5); WBC 8.9 k/uL (3.8-10.6)
[2019-11-06 07:11] LABS: Calcium 9.8 mg/dL (8.4-10.2); Potassium 4.5 mmol/L (3.5-5.1)
[2019-11-06] MEDS: METOPROLOL TARTRATE 50 MG TAB PO SCH ×2 (08:02→19:42)
[2019-11-06] MEDS: HEPARIN SODIUM,PORCINE 5,000 UNIT/ML 1 ML VIAL SQ SCH ×3 (08:02→23:53)
[2019-11-06] MEDS: FAMOTIDINE 20 MG TAB PO SCH (08:03)
[2019-11-06] MEDS: lisinopriL 20 MG TAB PO SCH (08:03)
[2019-11-06] MEDS: ACETAMINOPHEN TAB 325 MG TAB PO PRN (08:03)
[2019-11-06] MEDS: SENNOSIDES 8.6 MG TAB PO SCH ×2 (08:03→20:15)
[2019-11-06 11:11] VITALS: BMI 39.9
[2019-11-06] MEDS: VANCOMYCIN 2,000 MG in SODIUM CHLORIDE 0.9% 500 ML 500 ML IVPB SCH (12:26)
--- NOTE | 2019-11-06 13:59 | P.PN ---
Subjective Progress Note Date: 11/06/19 Principal diagnosis: 69-year-old female with a known history of hypertension, chronic bilateral lower activity swelling, osteoarthritis and morbid obesity with BMI 39.8 initially presented to [facility] with complaints of bilateral lower extremity swelling and redness and purulent drainage from the wounds/ulcers especially on the right lower extremity which has been getting worse for the past 1 month. Patient says that she has not been walking very well for the past one half year since her right knee arthroplasty followed by osteomyelitis. Patient was previously seen at [facility] by the patient moved to [place] few months ago. Patient was transferred to [facility] for evolution of wounds and antibiotics. Laboratory data showed WBC 11.9, hemoglobin 10.3, platelets 384 Sodium 141, potassium 4.5, chloride 109, BUN 24 and creatinine 1.3 11/03/2019 Patient is seen and evaluated in room with family members at bedside; denies any specific complaints Vital signs remained stable with a temperature of 98.6, pulse 63, respirations 16 and blood pressure 151/70 Lab review reveals BUN/creatinine improving from 29/1.4 down to 26/1.36; blood cultures are positive and final culture and sensitivities pending; ID is on board and recommending to continue with IV vancomycin to final culture results are available 11/04/2019 Patient is evaluated resting comfortably in bed; voices no new complaints; vital signs remained stable Laboratory review shows a normal WBC of 9.7, BUN/creatinine improved from 26 /1.36 down to 23/1.27; patient remains on IV cefepime and vancomycin until final culture and sensitivity results are available; blood culture is positive; ID on board and await final culture results for final adjustment 11/05/2019 Patient is seen and evaluated for follow-up; no specific complaints; reports improvement in redness and right lower extremity but reports that it tends to fluctuate Lab review shows a normal white blood count of 8.6, hemoglobin of 8.9, sodium of 133, potassium is improved to 5.1 from 5.4 yesterday and B UN/creatinine improved to 54/1.13 from 55/1.33 yesterday; blood glucose remains elevated ranging between 197 -298; blood cultures from [place] are still pending; IDs following and recommending to continue with cefepime and vancomycin with final choice of antibiotics once culture results are available 11/06/2019 This is a 69-year-old female who was recently admitted for bilateral lower extremity swelling and redness and also noted to have purulent drainage from the wounds on the right more so than the left. Patient was a transfer from [place] to [facility] for further evaluation and treatment. Patient is currently being closely monitored with infectious disease following closely. Patient is currently maintained on Vancomycin and cefazolin and will continue at this time. Patient's bilateral lower extremities are elevated and currently Wilian wrapped and edema is showing some improvement. PT/OT following recommending subacute rehab upon discharge and case management and social work following working on possible placement as patient is agreeable to [facility]. blood cultures here remain negative. Wound cultures from previous hospital show strep group B. Appreciate infectious disease recommendations on antibiotic therapy for discharge. Patient may possibly need IV antibiotics in the outpatient setting. Patient recently had a midline although had to be removed as there was some discomfort and swelling noted around the site. Patient is currently very tearful about rehab placement as she would like to return home. Patient is a 2-4 person assist with gait and position changes. patient also continues to have some high blood pressure and will continue to monitor closely. Creatinine slightly trending down at 1.07 and sodium is 139 with a potassium 4.5. White blood count is 8.9 and patient is afebrile. Review of systems: Constitutional: No reports of fatigue, fever, or chills Cardiovascular: No reports of chest pain or palpitations Respiratory: No reports of shortness of breath or cough GI: No reports of nausea, vomiting, or diarrhea : No reports of dysuria or retention Neurovascular: reports some weakness, no reports of numbness Active Medications Acetaminophen (Tylenol Tab) 325 mg PO Q6H PRN PRN Reason: Pain or Fever > 100.5 Last Admin: 11/06/19 08:03 Dose: 325 mg Documented by: Hydrocodone Bitart/Acetaminophen ([place] 5-325) 1 each PO Q6HR PRN PRN Reason: Pain Last Admin: 11/05/19 22:10 Dose: 1 each Documented by: Diphenhydramine HCl (Benadryl) 25 mg PO TID PRN PRN Reason: Itching Last Admin: 11/02/19 00:35 Dose: 25 mg Documented by: Famotidine (Pepcid) 20 mg PO DAILY YAO Last Admin: 11/06/19 08:03 Dose: 20 mg Documented by: Heparin Sodium (Porcine) (Heparin) 5,000 unit SQ Q8HR [facility] Last Admin: 11/06/19 08:02 Dose: 5,000 unit Documented by: Hydralazine HCl (Apresoline) 25 mg PO TID PRN PRN Reason: Blood Pressure - High Last Admin: 11/06/19 12:26 Dose: 25 mg Documented by: Cefazolin Sodium 2 gm/ Sodium (Chloride) 50 mls @ 100 mls/hr IVPB Q8HR [facility] Last Admin: 11/06/19 08:02 Dose: 100 mls/hr Documented by: Vancomycin HCl 2,000 mg/ (Sodium Chloride) 500 mls @ 167 mls/hr IVPB Q24H [facility] Last Admin: 11/06/19 12:26 Dose: 167 mls/hr Documented by: Lisinopril (Zestril) 20 mg PO DAILY [facility] Last Admin: 11/06/19 08:03 Dose: 20 mg Documented by: Metoprolol Tartrate (Lopressor) 50 mg PO BID [facility] Last Admin: 11/06/19 08:02 Dose: 50 mg Documented by: Senna (Senokot) 8.6 mg PO BID [facility] Last Admin: 11/06/19 08:03 Dose: Not Given Documented by: Objective - Vital Signs Vital signs: Vital Signs Temp 98.6 F 11/06/19 12:00 Pulse 68 11/06/19 12:00 Resp 16 11/06/19 12:00 BP 183/74 11/06/19 12:00 Pulse Ox 95 11/06/19 12:00 Intake & Output 11/05/19 11/06/19 11/06/19 18:59 06:59 18:59 Intake Total 530 60 450 Output Total 2024 450 500 Balance -1495 -390 -50 Weight 109 kg 109 kg Intake: IV 60 60 30 Invasive Line 2 30 30 10 Invasive Line 3 30 30 20 Oral 470 420 Output: Urine 2024 450 500 Other: Voiding Method Incontinent Incontinent Incontinent # Voids 2 # Bowel Movements 1 - Exam GENERAL: The patient is alert and oriented x3, lying in bed. Well developed, well nourished, obese. Temp is 98.4F, pulse is 76, respirations are 16, blood pressure is 192/79, oxygen saturation is 95% on room air. Repeat blood pressure is 183/74. HEENT: Pupils are round and equally reacting to light. EOMI. No scleral icterus. No conjunctival pallor. Normocephalic, atraumatic. No pharyngeal erythema. No thyromegaly. CARDIOVASCULAR: S1, S2 are muffled PULMONARY: diminished breath sounds bilaterally with no wheezing or rhonchi noted. ABDOMEN: Soft, obese, nontender, nondistended, normoactive bowel sounds. No palpable organomegaly. MUSCULOSKELETAL: No joint swelling or deformity. EXTREMITIES: No cyanosis, clubbing, or pedal edema. bilateral lower extremity edema noted with Wilian wraps applied, slightly improved NEUROLOGICAL: Gross neurological examination did not reveal any focal deficits. SKIN: No rashes. - Labs CBC & Chem 7: 11/06/19 06:22 11/06/19 06:22 Labs: Abnormal Lab Results - Last 24 Hours (Table) 11/06/19 11/06/19 Range/Units 06:22 06:22 RBC 3.70 L (3.80-5.40) m/uL Hgb 9.9 L (11.4-16.0) gm/dL Hct 33.5 L (34.0-46.0) % MCHC 29.6 L (31.0-37.0) g/dL Chloride 111 H (98-107) mmol/L BUN 21 H (7-17) mg/dL Creatinine 1.07 H (0.52-1.04) mg/dL Microbiology - Last 24 Hours (Table) 11/01/19 09:09 Blood Culture - Preliminary Blood No Growth after 120 hours Assessment and Plan Assessment: Bilateral lower extremity infected venous stasis ulcers with surrounding cellulitis. Chronic bilateral lower venous stasis and swelling Hypertension Chronic kidney disease stage III Morbid obesity with BMI 39.8 Osteoarthritis History of right total knee arthroplasty and osteomyelitis DVT prophylaxis GI prophylaxis Recommendations and discussion: Recommend to continue current medications, management, and symptomatic treatment. Patient is currently maintained on IV cefazolin along with vancomycin and will continue at this time. Cultures from previous hospital showing group B strep and infectious disease is following. Will discuss about the possibility of an IV antibiotic treatment outpatient as patient will need another midline. Patient's blood pressure currently elevated and will continue to monitor vital signs and labs closely. Will repeat a.m. labs. Due to multiple complex medical issues, prognosis is guarded. Further recommendations to follow. Case management and social work supervisor also following as patient will likely need rehab placement at an [facility] for continued PT/OT therapy.
[2019-11-06] MEDS: HYDROcodone/APAP 5-325MG 1 EACH TAB PO PRN (22:21)
[2019-11-07] MEDS: hydrALAZINE HCL 50 MG TAB PO SCH ×2 (02:26→08:39)
--- NOTE | 2019-11-07 05:26 | PN ---
PROGRESS NOTE DATE OF SERVICE: 11/06/2019 REASON FOR FOLLOWUP: Bilateral lower extremity wound cellulitis and Streptococcus agalactiae bacteremia. INTERVAL HISTORY: The patient is currently afebrile. The patient is breathing comfortably. The patient denies having any chest pain. No shortness of breath or cough. No nausea, no vomiting. No abdominal pain or pain to the lower extremity. PHYSICAL EXAMINATION: Blood pressure is 177/65, pulse of 74, temperature is 97.8. She is 96% on room air. General description is an elderly female lying in bed in no distress. RESPIRATORY SYSTEM: Unlabored breathing, clear to auscultation anteriorly. HEART: S1, S2. Regular rate and rhythm. ABDOMEN: Soft, no tenderness. LABS: Hemoglobin 9.9, white count 8.9, BUN of 21, creatinine 1.07. Blood culture has been negative. Blood cultures done at [facility] positive for Streptococcus agalactiae. DIAGNOSTIC IMPRESSION AND PLAN: Patient with bilateral lower extremity cellulitis and wound to the right leg with Streptococcus agalactiae bacteremia. Patient to continue cefazolin 2 grams q.8 hours. Vancomycin will be discontinued. Local wound care with Aquacel silver dressing and Wilian wrap. Finish therapy with oral Keflex. Family at the bedside, questions were answered. MMODL / IJN: [id number] /
[2019-11-07 07:18] LABS: Basophils # (A) 0.1 k/uL (0-0.2); Basophils % (A) 1 %; Eosinophils # (A) 0.8 k/uL (0-0.7); Eosinophils % (A) 8 %; HCT 33.3 % (34.0-46.0); HGB 10.2 gm/dL (11.4-16.0); Hypochromasia Moderate; Lymphocytes # (A) 1.2 k/uL (1.0-4.8); Lymphocytes % (A) 13 %; MCH 27.7 pg (25.0-35.0); MCHC 30.5 g/dL (31.0-37.0); MCV 90.7 fL (80.0-100.0); Monocytes # (A) 0.7 k/uL (0-1.0); Monocytes % (A) 8 %; Neutrophils # (A) 6.4 k/uL (1.3-7.7); Neutrophils % (A) 68 %; Platelet Count 365 k/uL (150-450); RBC 3.67 m/uL (3.80-5.40); RDW 14.1 % (11.5-15.5); WBC 9.3 k/uL (3.8-10.6)
[2019-11-07 07:31] LABS: Calcium 9.6 mg/dL (8.4-10.2)
[2019-11-07 07:38] LABS: Potassium 4.6 mmol/L (3.5-5.1)
[2019-11-07 08:37] VITALS: RESP 16; TEMP 97.1
[2019-11-07] MEDS: lisinopriL 20 MG TAB PO SCH (08:38)
[2019-11-07] MEDS: HEPARIN SODIUM,PORCINE 5,000 UNIT/ML 1 ML VIAL SQ SCH (08:38)
[2019-11-07] MEDS: FAMOTIDINE 20 MG TAB PO SCH (08:38)
[2019-11-07] MEDS: SENNOSIDES 8.6 MG TAB PO SCH (08:38)
[2019-11-07] MEDS: METOPROLOL TARTRATE 50 MG TAB PO SCH (08:38)
[2019-11-07 11:46] VITALS: BP 117/53; PULSE 66
--- NOTE | 2019-11-07 13:04 | P.DS ---
Providers Date of admission: 10/30/19 21:38 Expected date of discharge: 11/07/19 Attending physician: Tim Evangelista MD Consults: 10/31/19 10:50 Consult Physician Routine Consulting Provider: Manuel Coley Consult Reason/Comments: b/l LE cellulitis Do you want consulting provider notified?: Yes Primary care physician: [facility] Course: Final diagnosis Bilateral lower extremity infected venous stasis ulcers with surrounding cellulitis Covid 19 ruled out, testing was negative Chronic bilateral lower venous stasis and swelling Hypertension Chronic kidney disease stage III Morbid obesity with BMI 39.8 Osteoarthritis History of right total knee arthroplasty and osteomyelitis DVT prophylaxis GI prophylaxis Discharge disposition Patient is being discharged in a stable condition with guarded prognosis to [facility] for continued PT/OT therapy. Patient will follow- up with primary care provider in the outpatient setting upon discharge. She will also follow-up at the wound center in 1 week to 10 days. Patient will continue on oral Keflex 500 mg 3 times daily for the next 10 days. Total time taken is greater than 35 minutes. History of present illness This is a 69-year-old female who was recently admitted with bilateral lower extremity swelling and redness and purulent drainage from/ulcers especially on the right lower extremity and was being closely monitored. Patient was recently at [facility] and transferred here for further evaluation and IV antibiotic therapy. Patient was initiated on broad-spectrum antibiotics and cultures from [place] show group b strep and antibiotic was transitioned to cefazolin. She responded well and will be transitioned oral antibiotics in the form of Keflex 500 mg 3 times daily for the next 10 days and then may discontinue. Patient is to continue with local wound care with Aquacel silver along with Wilian wraps and elevate bilateral lower extremities while at rest. Patient was seen and evaluated by physical therapy recommending rehab as patient is quite weak and unable to get up on her own. Patient will be going to [facility] for continued PT/OT therapy. Patient did have Covid testing which was negative. Patient will need to follow-up at the wound care center in the next 1 week to 10 days. Currently no reports of chest pain, shortness of breath, or palpitations. Patient is afebrile. No reports of nausea or vomiting and patient is tolerating diet. Patient will be going to [place] [facility] today. On exam vital signs are stable. Temp is 97.1F, pulse is 66, respirations are 16, blood pressure is 117/53, oxygen saturation is 97% on room air. Cardio S1, S2 are muffled. Respiratory system shows diminished breath sounds at the bases with no wheezing or rhonchi noted. Abdomen is soft, obese, and nontender. Nervous system shows diffuse weakness. Please refer to medication reconciliation sheet for a list of medications. Patient Condition at Discharge: Stable Plan - Discharge Summary Discharge Rx Participant: No New Discharge Prescriptions: New hydrALAZINE HCL [Apresoline] 50 mg PO TID tab diphenhydrAMINE [Benadryl] 25 mg PO TID PRN cap PRN Reason: Itching Cephalexin [Keflex] 500 mg PO Q8HR 10 Days #30 cap HYDROcodone/APAP 5-325MG [[place] 5-325] 1 each PO Q6HR PRN #10 tab PRN Reason: Pain Famotidine [Pepcid] 20 mg PO DAILY tab Sennosides [Senokot] 8.6 mg PO BID tab Continue Acetaminophen Tab [Tylenol] 500 mg PO Q6H lisinopriL 20 mg PO DAILY Metoprolol Tartrate [Lopressor] 50 mg PO BID Discharge Medication List Acetaminophen Tab [Tylenol] 500 mg PO Q6H 10/30/19 [History] Metoprolol Tartrate [Lopressor] 50 mg PO BID 10/30/19 [History] lisinopriL 20 mg PO DAILY 10/30/19 [History] Cephalexin [Keflex] 500 mg PO Q8HR 10 Days #30 cap 11/07/19 [Rx] Famotidine [Pepcid] 20 mg PO DAILY tab 11/07/19 [Rx] HYDROcodone/APAP 5-325MG [[place] 5-325] 1 each PO Q6HR PRN #10 tab 11/07/19 [Rx] Sennosides [Senokot] 8.6 mg PO BID tab 11/07/19 [Rx] diphenhydrAMINE [Benadryl] 25 mg PO TID PRN cap 11/07/19 [Rx] hydrALAZINE HCL [Apresoline] 50 mg PO TID tab 11/07/19 [Rx] Follow up Appointment(s)/Referral(s): Wound Healing,Center [NON-STAFF] - 1 Week Activity/Diet/Wound Care/Special Instructions: Patient is going to [facility] Activity as tolerated Continue with antibiotics 3 times daily for the next 10 days and then may discontinue Continue with PT/OT therapy Follow-up at the wound center in 1-2 weeks Continue with local wound care Aquacel silver dressing to bilateral lower extremities and Wilian wraps daily Continue current heart healthy diet Discharge Disposition: TRANSFER TO SNF/ECF
--- NOTE | 2019-11-07 14:55 | PN ---
PROGRESS NOTE DATE OF SERVICE: 11/07/2019 REASON FOR FOLLOWUP: Bilateral lower extremity wound and lower extremity cellulitis, right greater than left. INTERVAL HISTORY: Patient is currently afebrile, patient is breathing comfortably. The patient denies having any chest pain. No shortness of breath or cough. No nausea, no vomiting, or any worsening pain to the lower extremity. PHYSICAL EXAMINATION: Blood pressure 117/53 with a pulse of 56, temperature is 97.1. She is 97% on room air. General description is an elderly female, lying in bed in no distress. RESPIRATORY SYSTEM: Unlabored breathing, clear to auscultation anteriorly. HEART: S1, S2. Regular rate and rhythm. ABDOMEN: Soft, no tenderness. Legs are currently wrapped up, no obvious drainage on the dressing. LABS: Hemoglobin is 10.3, white count 9.3, BUN of 25, creatinine 1.08. DIAGNOSTIC IMPRESSION AND PLAN: Patient with a bilateral lower extremity venostasis ulcer with secondary cellulitis, also with Streptococcus agalactiae bacteremia. Plan at this time is to continue patient on cefazolin with a plan to finish therapy with oral Keflex 500 mg p.o. q.6 hours and close outpatient followup. MMODL / IJN: [id number] /
--- NOTE | 2019-11-10 03:21 | CDI ---
Documentation Clarification Form Date: 11/10/2019 From: Sawyer Trevino Phone: If you have a question about this query, please contact Pam Cohen Career Development Counselor at [phone] between 8am and 5pm. Admit Date: 10/30/2019 Discharge Date: 11/07/2019 Patient Name: Davina Hager I Visit Number: [id number] ATTENTION: The Clinical Documentation Specialists (CDI) and [facility] Coding Staff appreciate your assistance in clarifying documentation. Please respond to the clarification below the line at the bottom and electronically sign. The CDI & [facility] Coding staff will review the response and follow-up if needed. Please note: Queries are made part of the Legal Health Record. If you have any questions, please contact the author of this message via ITS. Dear Dr Troy Ignacio MD., The patient presented with the Bilateral cellulitis and venous stasis. History/Risk Factors: CKD, Cellulitis, venous ulcer Clinical Indicators: Leg swelling, bacteremia WBC : 11.9 Blood cultures: Streptococcus Agalactiae at outside hospital/ Currently [id number]. Vitals signs on admission: 10/30/19 21:41 98.6 F 71 22 142/61 99 Treatment:Plan at this time is to continue patient on cefazolin with a plan to finish therapy with oral Keflex 500 mg p.o. q.6 hours and close outpatient followup Patient with a bilateral lower extremity venostasis ulcer with secondary cellulitis, also with Streptococcus agalactiae bacteremia. Antibiotics :Cefazolin vancomycin, Keflex. Patient having Bactermia from [facility] showing "Streptococcus agalactiae bacteremia" In your professional opinion, please clarify if these findings signify one of the following conditions, Sepsis Sepsis Ruled out Bacteremia alone no sepsis Sepsis MTDD
== END 2019-11-07 16:34 | disposition still patient (30) | DRG 872 ==
LOC: 3SCARD 21:38
PROVIDERS: ADMIT Internal Medicine; ATTEND Internal Medicine
PROC: 05HB33Z Insertion of Infusion Device into Right Basilic Vein, Percutaneous Approach (ICD-10-PCS; principal; 2019-11-01 16:00)
DX: A41.9 Sepsis, unspecified organism (principal); L03.116 Cellulitis of left lower limb; L03.115 Cellulitis of right lower limb; I87.311 Chronic venous hypertension (idiopathic) with ulcer of right lower extremity; I87.2 Venous insufficiency (chronic) (peripheral); E66.01 Morbid (severe) obesity due to excess calories; I12.9 Hypertensive chronic kidney disease with stage 1 through stage 4 chronic kidney disease, or unspecified chronic kidney disease; N18.3 Chronic kidney disease, stage 3 (moderate); M19.90 Unspecified osteoarthritis, unspecified site; Z96.651 Presence of right artificial knee joint; I87.309 Chronic venous hypertension (idiopathic) without complications of unspecified lower extremity; Z20.828 Contact with and (suspected) exposure to other viral communicable diseases; Z68.39 Body mass index [BMI] 39.0-39.9, adult; Z90.49 Acquired absence of other specified parts of digestive tract; Z98.890 Other specified postprocedural states; Z98.891 History of uterine scar from previous surgery; Z90.89 Acquired absence of other organs; Z98.51 Tubal ligation status; Z79.899 Other long term (current) drug therapy
CPT/HCPCS: 36410; 71046; 76937; 80048; 80076; 80202; 83735; 85025; 85610; 85730; 87040; 93970

== ENCOUNTER 2023-07-26 22:39 | Inpatient (IN) | payer MEDICARE ==
[2023-07-26] MEDS ORDERED: NALOXONE 0.4 MG/ML 1 ML VIAL IV PRN (23:06)
[2023-07-26] MEDS: FUROSEMIDE 10 MG/ML 4 ML VIAL IV STA (23:10)
[2023-07-26] MEDS: SODIUM CHLORIDE 0.9% 1,000 ML IV STA (23:10)
--- NOTE | 2023-07-26 23:12 | ED ---
General Adult HPI - General Chief complaint: Recheck/Abnormal Lab/Rx Stated complaint: Kidney Stones Time Seen by Provider: 07/26/23 22:55 Source: patient, EMS, RN notes reviewed, old records reviewed Mode of arrival: EMS Limitations: no limitations - History of Present Illness Initial comments: Patient is a transfer from [facility]. Concern for hyperparathyroidism and hypercalcemia. Seems to have symptomatic hypercalcemia concerning she has some mild increased lethargy. Baseline she is ANO x 2-3. More ANO x 2 with increased fatigue lately. They also found she has a left-sided ureteral lithiasis. Calcium was found to be 14 as well as elevated PTH. Also has some slightly elevated lipase likely secondary to hypercalcemia. Ledezma CT scan revealed no significant abnormalities other than the kidney stone. She has a history of CKD, hypertension, chronic lymphedema, CHF, early onset dementia. Symptoms have been ongoing for 3 days. Patient complains of generalized bodyaches. Patient has chronic stage I decubitus ulcers. Patient overall is a poor historian. Most of the history is obtained from [facility] records. Patient's symptoms seem all to be secondary to the hypercalcemia. Presents for further evaluation at this time. - Related Data Home Medications Medication Instructions Recorded Confirmed Acetaminophen Tab [Tylenol] 500 mg PO Q6H 10/30/19 10/30/19 Metoprolol Tartrate [Lopressor] 50 mg PO BID 10/30/19 10/30/19 lisinopriL 20 mg PO DAILY 10/30/19 10/30/19 Previous Rx's Medication Instructions Recorded Cephalexin [Keflex] 500 mg PO Q8HR 10 Days #30 cap 11/07/19 Famotidine [Pepcid] 20 mg PO DAILY tab 11/07/19 HYDROcodone/APAP 5-325MG [[place] 1 each PO Q6HR PRN #10 tab 11/07/19 5-325] Sennosides [Senokot] 8.6 mg PO BID tab 11/07/19 diphenhydrAMINE [Benadryl] 25 mg PO TID PRN cap 11/07/19 hydrALAZINE HCL [Apresoline] 50 mg PO TID tab 11/07/19 Allergies Allergy/AdvReac Type Severity Reaction Status Date / Time No Known Allergies Allergy Verified 10/30/19 21:43 Review of Systems ROS Statement: Those systems with pertinent positive or pertinent negative responses have been documented in the HPI. Review of Systems: CONST: Denies fever EYES: Denies blurry vision ENT: Denies nasal congestion C/V: Denies Chest pain RESP: Denies shortness of breath GI: Denies abdominal pain : Denies dysuria SKIN: Denies rash. MSK: Endorses body aches NEURO: Denies headache ROS Other: All systems not noted in ROS Statement are negative. Past Medical History Past Medical History: Hypertension, Skin Disorder Additional Past Medical History / Comment(s): pt was diagnosed with cellulits 2 years ago. pt has HTN and is currently taking lisinopril and metoprolol for management. History of Any Multi-Drug Resistant Organisms: None Reported Past Surgical History: Section, Cholecystectomy, Joint Replacement, Tonsillectomy, Tubal Ligation Additional Past Surgical History / Comment(s): pt states she has had 3 c- sections, tubal ligation, knee replacement, and partial knee replacement removal. Past Anesthesia/Blood Transfusion Reactions: No Reported Reaction Past Psychological History: No Psychological Hx Reported Smoking Status: Never smoker Past Alcohol Use History: None Reported Past Drug Use History: None Reported General Exam - General Exam Comments Initial Comments: General: Patient is obese. Seems sleepy but easily arousable. HEAD: Normal with no signs of head trauma. EYES: PERRLA, EOMI, conjunctiva normal, no discharge. 3 mm and equal bilaterally. ENT: Hearing grossly intact, normal oropharynx. RESPIRATORY: Clear breath sounds bilaterally. No wheezes, rales, or rhonchi. C/V: Regular rate and rhythm. S1 and S2 auscultated, no current lower extremity edema, peripheral pulses 2+ and intact throughout ABD: Abd is soft, nontender, nondistended EXT: Normal range of motion, no obvious deformity SKIN: Stage I decubitus ulcers on the buttocks as well as an uncomplicated open wound on the right leg. PICC line located in the right upper extremity. NEURO: Alert and oriented x 2. Baseline is alert and oriented x 2-3. No obvious focal deficits but general drowsiness. Limitations: no limitations Course Vital Signs 07/26/23 07/26/23 22:42 23:01 Temperature 98.4 F Pulse Rate 84 79 Respiratory 16 16 Rate Blood Pressure 135/56 141/57 O2 Sat by Pulse 96 95 Oximetry Medical Decision Making - Medical Decision Making Was pt. sent in by a medical professional or institution (KASSI Estrada, AUTOMOTIVE SALES REPRESENTATIVE, urgent care, hospital, or long-term...) When possible be specific @ -No Did you speak to anyone other than the patient for history (EMS, parent, family, police, friend...)? What history was obtained from this source @ -No Did you review nursing and triage notes (agree or disagree)? Why? @ -I reviewed and agree with nursing and triage notes Were old charts reviewed (outside hosp., previous admission, EMS record, old EKG, old radiological studies, urgent care reports/EKG's, long-term records)? Report findings @ -Charts from [facility] including laboratory results as well as CT imaging results. Images apparently were pushed into our PACS system. Differential Diagnosis (chest pain, altered mental status, abdominal pain women, abdominal pain men, vaginal bleeding, weakness, fever, dyspnea, syncope, headache, dizziness, GI bleed, back pain, seizure, CVA, palpatations, mental health, musculoskeletal)? @ -Differential Weakness: Hypoglycemia, shock, sepsis, hyponatremia, anemia, infection, MD, ETOH, adverse medicine reaction, overdose, stroke, this is not meant to be an all-inclusive list. EKG interpreted by me (3pts min.). @ -As above X-rays interpreted by me (1pt min.). @ -None done CT interpreted by me (1pt min.). @ -None done U/S interpreted by me (1pt. min.). @ -None done What testing was considered but not performed or refused? (CT, X-rays, U/S, labs)? Why? @ -Considered CT imaging however patient already received ledezma CT imaging. What meds were considered but not given or refused? Why? @ -None Did you discuss the management of the patient with other professionals (professionals i.e. KASSI Estrada, AUTOMOTIVE SALES REPRESENTATIVE, lab, RT, psych nurse, social service coordinator, fine grader, teacher, freedom of information officer, pillowcase folder)? Give summary @ -Discussed case with Dr. Hernandez, the admitting physician. Was in agreement with plan for IV fluids as well as IV Lasix. Recommended obtaining an ionized calcium in addition to the labs that are already ordered and administering alendronate if this is elevated. Was in agreement with plan for consultation to urology. Nephrology will also be consulted for the CKD. Was smoking cessation discussed for >3mins.? @ -No Was critical care preformed (if so, how long)? @ -No Were there social determinants of health that impacted care today? How? (Homelessness, low income, unemployed, alcoholism, drug addiction, transportation, low edu. Level, literacy, decrease access to med. care, nursing home, rehab)? @ -No Was there de-escalation of care discussed even if they declined (Discuss DNR or withdrawal of care, Hospice)? DNR status @ -No What co-morbidities impacted this encounter? (DM, HTN, Smoking, COPD, CAD, Cancer, CVA, ARF, Chemo, Hep., AIDS, mental health diagnosis, sleep apnea, morbid obesity)? @ -None Was patient admitted / discharged? Hospital course, mention meds given and route, prescriptions, significant lab abnormalities, going to OR and other pertinent info. @ -Patient presents emergency department for drowsiness and lethargy as well as findings of a kidney stone and hypercalcemia at outpatient ER. Patient will be given IV fluids as she clinically appears dehydrated in addition to IV Lasix. Will repeat labs. Patient will be admitted. Vital signs currently within acc eptable limits. EKG shows no signs of acute ischemia.Patient's labs returned remarkable for elevated BUN and creatinine of 24 and 2.48. As documented in the outpatient paperwork, patient's recent creatinines at [facility] have been around 2.3. So this seems pretty stable. We have no recent kidney function for comparison. Calcium is still elevated at 13.9 with an ionized calcium of 7.9. Troponin minimally elevated to 0.043. No significant elevation from other hospital however we will continue to trend. Lipase is also slightly elevated likely secondary to the hypercalcemia. Due to the hypercalcemia and elevated ionized calcium, patient was given a bisphosphonate, Zometa. This is after my previous discussion with Dr. Hernandez who requested this be done if at all denies calcium is elevated. I was in agreement this plan. Patient's troponin is also slightly elevated however I do believe this is likely secondary to underlying process as it is not significant elevated from the outside facility where it was 0.035. No Acute EKG changes. Will continue to trend. Patient given an aspirin. After contacting [facility] as well as nursing facility, it is unknown why the patient has a PICC line. Discussed case with Dr. Hernandez, the admitting physician. Was in agreement with plan for IV fluids as well as IV Lasix. Recommended obtaining an ionized calcium in addition to the labs that are already ordered and administering alendronate if this is elevated. Was in agreement with plan for consultation to urology. Nephrology will also be consulted for the CKD. Undiagnosed new problem with uncertain prognosis? @ -No Drug Therapy requiring intensive monitoring for toxicity (Heparin, Nitro, Insulin, Cardizem)? @ -No Were any procedures done? @ -No Diagnosis/symptom? @ -Symptomatic hypercalcemia, hyperparathyroidism, left ureterolithiasis, lethargy, elevated troponin, ckd Acute, or Chronic, or Acute on Chronic? @ -Acute Uncomplicated (without systemic symptoms) or Complicated (systemic symptoms)? @ -Complicated Side effects of treatment? @ -No Exacerbation, Progression, or Severe Exacerbation? @ -No Poses a threat to life or bodily function? How? (Chest pain, USA, MD, pneumonia, PE, COPD, DKA, ARF, appy, cholecystitis, CVA, Diverticulitis, Homicidal, Gonzalez icidal, threat to staff... and all critical care pts) @ -Yes - Lab Data Result diagrams: 07/26/23 23:04 07/26/23 23:04 Lab Results 07/26/23 07/26/23 07/26/23 Range/Units 23:04 23:04 23:04 WBC 9.5 (3.8-10.6) k/uL RBC 4.13 (3.80-5.40) m/uL Hgb 11.9 (11.4-16.0) gm/dL Hct 38.6 (34.0-46.0) % MCV 93.3 (80.0-100.0) fL MCH 28.8 (25.0-35.0) pg MCHC 30.8 L (31.0-37.0) g/dL RDW 16.2 H (11.5-15.5) % Plt Count 321 (150-450) k/uL MPV 8.1 Neutrophils % (Manual) 70 % Band Neuts % (Manual) 1 % Lymphocytes % 15 % Lymphocytes % (Manual) 13 % Monocytes % 7 % Monocytes % (Manual) 12 % Eosinophils % 2 % Eosinophils % (Manual) 4 % Basophils % 1 % Neutrophils # 6.9 (1.3-7.7) k/uL Neutrophils # (Manual) 6.70 (1.3-7.7) k/uL Lymphocytes # 1.5 (1.0-4.8) k/uL Lymphocytes # (Manual) 1.24 (1.0-4.8) k/uL Monocytes # 0.6 (0-1.0) k/uL Monocytes # (Manual) 1.14 H (0-1.0) k/uL Eosinophils # 0.2 (0-0.7) k/uL Eosinophils # (Manual) 0.38 (0-0.7) k/uL Basophils # 0.1 (0-0.2) k/uL Nucleated RBCs 0 (0-0) /100 WBC Manual Slide Review Performed Hypochromasia Marked Anisocytosis Slight Sodium 148 H (137-145) mmol/L Potassium 4.3 (3.5-5.1) mmol/L Chloride 118 H (98-107) mmol/L Carbon Dioxide 26 (22-30) mmol/L Anion Gap 4 mmol/L BUN 54 H (7-17) mg/dL Creatinine 2.48 H (0.52-1.04) mg/dL Est GFR (CKD-EPI)AfAm 22 (>60 ml/min/1.73 sqM) Est GFR (CKD-EPI)NonAf 19 (>60 ml/min/1.73 sqM) Glucose 106 H (74-99) mg/dL Calcium 13.9 H* (8.4-10.2) mg/dL Ionized Calcium Desi 7.9 H* (4.5-5.3) mg/dL Phosphorus 3.1 (2.5-4.5) mg/dL Magnesium 2.2 (1.6-2.3) mg/dL Total Bilirubin 0.6 (0.2-1.3) mg/dL AST 99 H (14-36) U/L ALT 51 H (4-34) U/L Alkaline Phosphatase 310 H (38-126) U/L Troponin I 0.043 H* (0.000-0.034) ng/mL Total Protein 5.9 L (6.3-8.2) g/dL Albumin 2.7 L (3.5-5.0) g/dL Lipase 501 H (23-300) U/L - EKG Data -: EKG Interpreted by Me EKG Comments: 12-lead Electrocardiogram Interpretation Note EKG was reviewed and interpreted by myself. 12-lead ECG performed at 2246 is interpreted by me as revealing normal sinus rhythm at a rate of 81 beats per minute. [place] is normal. [place] interval is 191 ms, QRS duration is 106 ms, QTc is 470 ms.. There were no ST or T wave abnormalities to suggest myocardial ischemia or injury. R wave progression across the precordium was satisfactory. By my interpretation this EKG is non-diagnostic for acute ischemia. Disposition Clinical Impression: Hypercalcemia, Hyperparathyroidism, Lethargy, Ureterolithiasis, Elevated troponin, CKD (chronic kidney disease) Disposition: ADMITTED IP TO THIS HOSP Condition: Serious Time of Disposition: 23:19
[2023-07-26 23:22] LABS: Anisocytosis Slight; Basophils # (A) 0.1 k/uL (0-0.2); Basophils % (A) 1 %; Eosinophils # (A) 0.2 k/uL (0-0.7); Eosinophils % (A) 2 %; HCT 38.6 % (34.0-46.0); HGB 11.9 gm/dL (11.4-16.0); Hypochromasia Marked; Lymphocytes # (A) 1.5 k/uL (1.0-4.8); Lymphocytes % (A) 15 %; MCH 28.8 pg (25.0-35.0); MCHC 30.8 g/dL (31.0-37.0); MCV 93.3 fL (80.0-100.0); Mean Platelet Volume 8.1; Monocytes # (A) 0.6 k/uL (0-1.0); Monocytes % (A) 7 %; Neutrophils # (A) 6.9 k/uL (1.3-7.7); Platelet Count 321 k/uL (150-450); RBC 4.13 m/uL (3.80-5.40); RDW 16.2 % (11.5-15.5); WBC 9.5 k/uL (3.8-10.6)
[2023-07-26 23:32] LABS: Ionized Calcium 7.9 mg/dL (4.5-5.3)
[2023-07-26 23:41] LABS: ALT 51 U/L (4-34); AST 99 U/L (14-36); African American GFR (CKD) 22 (>60 ml/min/1.73 sqM); Albumin 2.7 g/dL (3.5-5.0); Alkaline Phosphatase 310 U/L (38-126); Anion Gap 4 mmol/L; Band Neutrophils % 1 %; Blood Urea Nitrogen 54 mg/dL (7-17); Carbon Dioxide 26 mmol/L (22-30); Chloride 118 mmol/L (98-107); Eosinophils # (M) 0.38 k/uL (0-0.7); Glucose 106 mg/dL (74-99); Lipase 501 U/L (23-300); Lymphocytes # (M) 1.24 k/uL (1.0-4.8); Magnesium 2.2 mg/dL (1.6-2.3); Monocytes # (M) 1.14 k/uL (0-1.0); Neutrophils % (M) 70 %; Non-African American GFR(CKD) 19 (>60 ml/min/1.73 sqM); Nucleated Red Blood Cells 0 /100 WBC (0-0); Phosphorus 3.1 mg/dL (2.5-4.5); Potassium 4.3 mmol/L (3.5-5.1); Sodium 148 mmol/L (137-145); Total Bilirubin 0.6 mg/dL (0.2-1.3); Total Cells Counted 100; Total Protein 5.9 g/dL (6.3-8.2)
[2023-07-26 23:42] LABS: Calcium 13.9 mg/dL (8.4-10.2)
[2023-07-27] MEDS: ZOLEDRONIC ACID 4 MG in SODIUM CHLORIDE 0.9% 100 ML IV STA (00:10)
[2023-07-27] MEDS: ASPIRIN 81 MG PO STA (00:28)
[2023-07-27] MEDS: HEPARIN SODIUM,PORCINE 5,000 UNIT/ML 1 ML VIAL SQ SCH (00:34)
[2023-07-27 03:53] LABS: Anisocytosis Slight; Basophils # (A) 0.1 k/uL (0-0.2); Basophils % (A) 1 %; Eosinophils # (A) 0.2 k/uL (0-0.7); Eosinophils % (A) 2 %; HCT 37.5 % (34.0-46.0); HGB 10.9 gm/dL (11.4-16.0); Hypochromasia Marked; Lymphocytes # (A) 1.4 k/uL (1.0-4.8); Lymphocytes % (A) 14 %; MCH 27.7 pg (25.0-35.0); MCHC 29.1 g/dL (31.0-37.0); MCV 95.1 fL (80.0-100.0); Monocytes # (A) 0.9 k/uL (0-1.0); Monocytes % (A) 9 %; Neutrophils # (A) 7.1 k/uL (1.3-7.7); Neutrophils % (A) 73 %; Platelet Count 342 k/uL (150-450); RBC 3.94 m/uL (3.80-5.40); RDW 16.1 % (11.5-15.5); WBC 9.8 k/uL (3.8-10.6)
[2023-07-27 04:14] LABS: ALT 54 U/L (4-34); AST 111 U/L (14-36); African American GFR (CKD) 22 (>60 ml/min/1.73 sqM); Albumin 2.6 g/dL (3.5-5.0); Alkaline Phosphatase 307 U/L (38-126); Anion Gap 3 mmol/L; Blood Urea Nitrogen 54 mg/dL (7-17); Carbon Dioxide 28 mmol/L (22-30); Chloride 118 mmol/L (98-107); Glucose 110 mg/dL (74-99); Non-African American GFR(CKD) 19 (>60 ml/min/1.73 sqM); Potassium 4.2 mmol/L (3.5-5.1); Sodium 149 mmol/L (137-145); Total Bilirubin 0.7 mg/dL (0.2-1.3); Total Protein 5.7 g/dL (6.3-8.2)
[2023-07-27 04:33] LABS: Calcium 13.6 mg/dL (8.4-10.2)
--- NOTE | 2023-07-27 08:23 | P.GSCN ---
History of Present Illness Consult date: 07/27/23 Reason for Consult: Left ureteral calculus Requesting physician: Jackson Hernandez History of present illness: The patient is a 73-year-old white female who presented to [facility] with a several day history of fatigue and lethargy. She resides at [facility]. She was found to have significant hypercalcemia. CT scan showed evidence of a mild to moderate left hydronephrosis due to a 6.4 mm left proximal ureteral calculus, prominent extrarenal pelvis disease bilaterally, and a 6.2 cm left renal cyst. Left ureteral calculus. I am consulted for this reason. She currently denies pain. She has had no previous episodes of urolithiasis, but has been treated for UTIs in the past. She denies dysuria and hematuria. Review of Systems - Constitutional Reports fatigue, Reports lethargy - Genitourinary Genitourinary: Reports as per HPI Past Medical History Past Medical History: Hypertension, Skin Disorder Additional Past Medical History / Comment(s): pt was diagnosed with cellulits 2 years ago. pt has HTN and is currently taking lisinopril and metoprolol for management. History of Any Multi-Drug Resistant Organisms: None Reported Past Surgical History: Section, Cholecystectomy, Joint Replacement, Tonsillectomy, Tubal Ligation Additional Past Surgical History / Comment(s): pt states she has had 3 c- sections, tubal ligation, knee replacement, and partial knee replacement removal. Past Anesthesia/Blood Transfusion Reactions: No Reported Reaction Past Psychological History: No Psychological Hx Reported Smoking Status: Never smoker Past Alcohol Use History: None Reported Past Drug Use History: None Reported Medications and Allergies Home Medications Medication Instructions Recorded Confirmed Type Acetaminophen Tab [Tylenol] 500 mg PO Q6H 10/30/19 10/30/19 History Metoprolol Tartrate [Lopressor] 50 mg PO BID 10/30/19 10/30/19 History lisinopriL 20 mg PO DAILY 10/30/19 10/30/19 History Cephalexin [Keflex] 500 mg PO Q8HR 10 Days #30 cap 11/07/19 Rx Famotidine [Pepcid] 20 mg PO DAILY tab 11/07/19 Rx HYDROcodone/APAP 5-325MG [[place] 1 each PO Q6HR PRN #10 tab 11/07/19 Rx 5-325] Sennosides [Senokot] 8.6 mg PO BID tab 11/07/19 Rx diphenhydrAMINE [Benadryl] 25 mg PO TID PRN cap 11/07/19 Rx hydrALAZINE HCL [Apresoline] 50 mg PO TID tab 11/07/19 Rx Allergies Allergy/AdvReac Type Severity Reaction Status Date / Time No Known Allergies Allergy Verified 07/27/23 07:28 Surgical - Exam Vital Signs Temp Pulse Resp BP Pulse Ox 98.4 F 84 16 135/56 96 07/26/23 22:42 07/26/23 22:42 07/26/23 22:42 07/26/23 22:42 07/26/23 22:42 - General well developed, well nourished, no distress - Neck Neck supple. There appears to be a pretracheal mass, likely representing thyroid enlargement. - Respiratory normal respiratory effort - Abdomen Abdomen: soft, non tender, no guarding, no rigid, no rebound - Psychiatric oriented to time, oriented to person, oriented to place, speech is normal, memory intact, other Results - Labs 07/27/23 02:35 07/27/23 02:35 Abnormal Lab Results - Last 24 Hours (Table) 07/26/23 07/26/23 07/26/23 Range/Units 23:04 23:04 23:04 Hgb (11.4-16.0) gm/dL MCHC 30.8 L (31.0-37.0) g/dL RDW 16.2 H (11.5-15.5) % Monocytes # (Manual) 1.14 H (0-1.0) k/uL Sodium 148 H (137-145) mmol/L Chloride 118 H (98-107) mmol/L BUN 54 H (7-17) mg/dL Creatinine 2.48 H (0.52-1.04) mg/dL Glucose 106 H (74-99) mg/dL Calcium 13.9 H* (8.4-10.2) mg/dL Ionized Calcium Desi 7.9 H* (4.5-5.3) mg/dL AST 99 H (14-36) U/L ALT 51 H (4-34) U/L Alkaline Phosphatase 310 H (38-126) U/L Troponin I 0.043 H* (0.000-0.034) ng/mL Total Protein 5.9 L (6.3-8.2) g/dL Albumin 2.7 L (3.5-5.0) g/dL Lipase 501 H (23-300) U/L 07/27/23 07/27/23 07/27/23 Range/Units 02:35 02:35 02:35 Hgb 10.9 L (11.4-16.0) gm/dL MCHC 29.1 L (31.0-37.0) g/dL RDW 16.1 H (11.5-15.5) % Monocytes # (Manual) (0-1.0) k/uL Sodium 149 H (137-145) mmol/L Chloride 118 H (98-107) mmol/L BUN 54 H (7-17) mg/dL Creatinine 2.45 H (0.52-1.04) mg/dL Glucose 110 H (74-99) mg/dL Calcium 13.6 H* (8.4-10.2) mg/dL Ionized Calcium Desi (4.5-5.3) mg/dL AST 111 H (14-36) U/L ALT 54 H (4-34) U/L Alkaline Phosphatase 307 H (38-126) U/L Troponin I 0.038 H* (0.000-0.034) ng/mL Total Protein 5.7 L (6.3-8.2) g/dL Albumin 2.6 L (3.5-5.0) g/dL Lipase (23-300) U/L Diabetes panel 07/26/23 07/27/23 Range/Units 23:04 02:35 Sodium 148 H 149 H (137-145) mmol/L Potassium 4.3 4.2 (3.5-5.1) mmol/L Chloride 118 H 118 H (98-107) mmol/L Carbon Dioxide 26 28 (22-30) mmol/L BUN 54 H 54 H (7-17) mg/dL Creatinine 2.48 H 2.45 H (0.52-1.04) mg/dL Glucose 106 H 110 H (74-99) mg/dL Calcium 13.9 H* 13.6 H* (8.4-10.2) mg/dL AST 99 H 111 H (14-36) U/L ALT 51 H 54 H (4-34) U/L Alkaline Phosphatase 310 H 307 H (38-126) U/L Total Protein 5.9 L 5.7 L (6.3-8.2) g/dL Albumin 2.7 L 2.6 L (3.5-5.0) g/dL Calcium panel 07/26/23 07/27/23 Range/Units 23:04 02:35 Calcium 13.9 H* 13.6 H* (8.4-10.2) mg/dL Ionized Calcium Desi 7.9 H* (4.5-5.3) mg/dL Phosphorus 3.1 (2.5-4.5) mg/dL Albumin 2.7 L 2.6 L (3.5-5.0) g/dL Pituitary panel 07/26/23 07/27/23 Range/Units 23:04 02:35 Sodium 148 H 149 H (137-145) mmol/L Potassium 4.3 4.2 (3.5-5.1) mmol/L Chloride 118 H 118 H (98-107) mmol/L Carbon Dioxide 26 28 (22-30) mmol/L BUN 54 H 54 H (7-17) mg/dL Creatinine 2.48 H 2.45 H (0.52-1.04) mg/dL Glucose 106 H 110 H (74-99) mg/dL Calcium 13.9 H* 13.6 H* (8.4-10.2) mg/dL Adrenal panel 07/26/23 07/27/23 Range/Units 23:04 02:35 Sodium 148 H 149 H (137-145) mmol/L Potassium 4.3 4.2 (3.5-5.1) mmol/L Chloride 118 H 118 H (98-107) mmol/L Carbon Dioxide 26 28 (22-30) mmol/L BUN 54 H 54 H (7-17) mg/dL Creatinine 2.48 H 2.45 H (0.52-1.04) mg/dL Glucose 106 H 110 H (74-99) mg/dL Calcium 13.9 H* 13.6 H* (8.4-10.2) mg/dL Total Bilirubin 0.6 0.7 (0.2-1.3) mg/dL AST 99 H 111 H (14-36) U/L ALT 51 H 54 H (4-34) U/L Alkaline Phosphatase 310 H 307 H (38-126) U/L Total Protein 5.9 L 5.7 L (6.3-8.2) g/dL Albumin 2.7 L 2.6 L (3.5-5.0) g/dL - Imaging CT scan - abdomen: report reviewed Assessment and Plan (1) Ureterolithiasis Current Visit: Yes Status: Acute Code(s): N20.1 - CALCULUS OF URETER S NOMED Code(s): 55856575 (2) Hydronephrosis with renal and ureteral calculous obstruction Current Visit: Yes Status: Acute Code(s): N13.2 - HYDRONEPHROSIS WITH RENAL AND URETERAL CALCULOUS OBSTRUCTION SNOMED Code(s): 168659690 Plan: The patient likely has developed a ureteral calculus as a result of hypercalcemia. Her renal insufficiency is likely multifactorial, but the obstructing ureteral calculus may be contributing to this. Urinalysis shows no evidence of infection. I would recommend that she be evaluated for a parathyroi d secreting tumor, in addition to treating the hypercalcemia. I would suggest she be placed on tamsulosin if there are no contraindications. Urine will be strained. A baseline KUB x-ray will be obtained. A ureteral stent could be placed to relieve ureteral obstruction and optimize renal function. Will continue to follow with you. Time with Patient: Greater than 30
[2023-07-27] MEDS: ESCITALOPRAM 10 MG TAB PO SCH (11:38)
[2023-07-27] MEDS: allopurinoL 100 MG TAB PO SCH (11:38)
[2023-07-27] MEDS: PANTOPRAZOLE 40 MG TABLET PO SCH (11:38)
[2023-07-27] MEDS: METOPROLOL TARTRATE 25 MG TAB PO SCH (11:38)
[2023-07-27] MEDS: SODIUM CHLORIDE 0.45% 1,000 ML IV SCH (11:47)
--- NOTE | 2023-07-27 12:17 | P.NPCON ---
History of Present Illness - History of Present Illness patient is a 73-year-old female who has been transferred from [facility] for hypercalcemia. Patient resides in a rehab facility and was taken to the hospital due to incre ased weakness and lethargy. Labs reveals serum calcium at 14. Patient is currently maintained on IV fluids. a computed tomography scan showed [id number] left hydronephrosis with 6.4 mm left ureteral calculus. Patient has been evaluated by urology. no calcium supplements noted on med list. Review of Systems as per HPI Past Medical History Past Medical History: Hypertension, Skin Disorder Additional Past Medical History / Comment(s): pt was diagnosed with cellulits 2 years ago. pt has HTN and is currently taking lisinopril and metoprolol for management. History of Any Multi-Drug Resistant Organisms: None Reported Past Surgical History: Section, Cholecystectomy, Joint Replacement, Tonsillectomy, Tubal Ligation Additional Past Surgical History / Comment(s): pt states she has had 3 c- sections, tubal ligation, knee replacement, and partial knee replacement removal. Past Anesthesia/Blood Transfusion Reactions: No Reported Reaction Past Psychological History: No Psychological Hx Reported Smoking Status: Never smoker Past Alcohol Use History: None Reported Past Drug Use History: None Reported Medications and Allergies Home Medications Medication Instructions Recorded Confirmed Type Metoprolol Tartrate [Lopressor] 50 mg PO HS 10/30/19 07/27/23 History ALPRAZolam [Xanax] 0.5 mg PO Q12H PRN 07/27/23 07/27/23 History Acetaminophen Tab [Tylenol] 650 mg PO Q4H PRN MDD 3000mg 07/27/23 07/27/23 History Atrac-Tain 1 applic TOPICAL TUTHSA@2100 07/27/23 07/27/23 History Doxycycline [Vibramycin] 100 mg PO BID@0700,1900 07/27/23 07/27/23 History Escitalopram Oxalate [Lexapro] 10 mg PO DAILY@0700 07/27/23 07/27/23 History Ferrous Sulfate [Feosol] 325 mg PO MOWEFR@1300 07/27/23 07/27/23 History Nichole-Lanta 20 ml PO Q6H PRN 07/27/23 07/27/23 History L.acidoph,Paracasei, B.lactis 2 cap PO DAILY@1300 07/27/23 07/27/23 History [Probiotic] Liquacel 30 ml PO BID@0700,1700 07/27/23 07/27/23 History Omeprazole [PriLOSEC] 40 mg PO DAILY@0700 07/27/23 07/27/23 History Ondansetron [Zofran] 4 mg PO Q8H PRN 07/27/23 07/27/23 History Simethicone [Gas-X] 125 mg PO TID 07/27/23 07/27/23 History allopurinoL 100 mg PO DAILY 07/27/23 07/27/23 History bisacodyL [Dulcolax] 10 mg RECTAL Q3D PRN 07/27/23 07/27/23 History oxyCODONE HCL [OxyIR] 5 mg PO Q3H PRN 07/27/23 07/27/23 History polyethylene glycoL 3350 [Miralax] 17 gm PO DAILY PRN 07/27/23 07/27/23 History Allergies Allergy/AdvReac Type Severity Reaction Status Date / Time No Known Allergies Allergy Verified 07/27/23 09:56 Physical Exam Vitals: Vital Signs Temp Pulse Pulse Resp BP BP Pulse Ox 07/27/23 11:22 97 F L 68 20 179/81 98 07/27/23 09:39 97.7 F 69 20 177/70 99 07/27/23 06:54 68 16 174/64 98 07/27/23 05:27 70 18 174/70 97 07/27/23 03:45 69 16 167/66 97 07/27/23 02:00 68 16 157/61 96 07/27/23 00:36 73 16 167/79 96 07/27/23 00:10 71 16 155/58 97 07/26/23 23:01 79 16 141/57 95 07/26/23 22:42 98.4 F 84 16 135/56 96 Intake and Output 07/26/23 07/27/23 07/27/23 22:59 06:59 14:59 Output Total 200 Balance -200 Output: Urine 200 Other: Voiding Method Indwelling Catheter Weight 145.15 kg patient is awake. She does not communicate much. Examination of the heart S1 and S2 Examination of the lungs bilateral breath sounds are heard Abdomen is soft obese nontender Examination of lower extremity shows no significant edema [employer] exam shows patient is moving all 4 extremities. She does not communicate much. Results - Lab Results Most recent lab results Calcium 13.6 mg/dL (8.4-10.2) H* 07/27/23 02:35 Phosphorus 3.1 mg/dL (2.5-4.5) 07/26/23 23:04 Magnesium 2.2 mg/dL (1.6-2.3) 07/26/23 23:04 07/27/23 02:35 07/27/23 02:35 Assessment and Plan Assessment: 1. Acute kidney injury secondary to hypercalcemia, ATN currently nonoliguric. Patient is maintained on IV fluids. check UA. Computed tomography scan shows left ureteral calculus and left [id number] hydronephrosis. 2. Hypercalcemia most likely associated with underlying primary hype rparathyroidism. PTH level is pending. 25-hydroxy vitamin D and 1, 25-hydroxy vitamin D level will also be ordered. 3. Hypernatremia associated with free water deficit 4. Left ureteral calculus with left [id number] hydronephrosis being followed by urology. Plan: agree with switching IV fluids to half-normal saline. check parathyroid nuclear scan if PTH is elevated. Continue IV hydration Avoid nephrotoxic agents Repeat labs in a.m. Check UA Thank you for the consultation. We will continue to follow the patient with you during her hospitalization.
--- NOTE | 2023-07-27 16:00 | P.HPIM ---
History of Present Illness H&P Date: 07/27/23 Chief Complaint: Weak and tired This is a pleasant 73-year-old patient currently resident of [facility]. In [place]. Patient's at the bedside. At the baseline patient not able to walk. Needs full assist. May take couple of steps. For last 6 days patient is barely been eating. Having nausea vomiting. Has felt warm. Tired rundown. Was found to have elevated sodium and increase calcium in the ER. Started on IV fluids. CT scan at [facility] showed mild to moderate left hydronephrosis with a 6.4 mm left proximal ureteral calculus. No abdominal pain. Review of systems: GEN.: Tired decreased appetite EYES: None HEENT: None NECK: None RESPIRATORY: None CARDIOVASCULAR: None GASTROINTESTINAL: None GENITOURINARY: None MUSCULOSKELETAL: Mild joint pains LYMPHATICS: None HEMATOLOGICAL: None PSYCHIATRY: None NEUROLOGICAL: None Social history: No smoking. No alcohol. Currently resident of [facility].. Physical examination: VITAL SIGNS: 97, 69, 20, 177/70, 99% room air GENERAL: BMI 47.3, reclining in bed somewhat slightly lethargic. EYES: Pupils equal. Conjunctiva ozzy l. HEENT: External appearance of nose and ears normal, oral cavity grossly dry mucous membrane l. NECK: JVD not raised; masses not palpable. HEART: First and second heart sounds are normal; no edema. LUNGS: Respiratory rate normal; clear to auscultation. ABDOMEN: Soft, nontender, liver spleen not palpable, no masses palpable. PSYCH: Lethargic but able to answer some simple questions l. MUSCULOSKELETAL:No Clubbing/cyanosis;muscles-grossly intact. OA Dermatological: Chronic venous changes lower extremity NEUROLOGICAL: Cranial nerves grossly intact; no facial asymmetry, power and sensation grossly intact. LYMPHATICS: No lymph nodes palpable in the axilla and neck INVESTIGATIONS, reviewed in the clinical context: July 27, 2023: White count 9.8 hemoglobin 10.9 platelets 342 sodium 149 potassium 4.2 chloride 118 BUN 54 creatinine 2.45 calcium 13.6 AST 111 ALT 54 Troponin I 0.043, 0.038, 0.036 July 26, 2023: White count 9.5 hemoglobin 11.9 platelets 321 sodium 140 potassium 4.3 BUN 54 creatinine 2.48 calcium 13.9 ionized calcium 7.9 phosphorus 3.1 albumin 2.7 EKG tracing personally reviewed by me-normal sinus rhythm. Some ST-T wave changes. Assessment plan: -Acute metabolic encephalopathy, from severe electrolyte abnormality -Hypercalcemia, likely from volume depletion, patient not eating for last 6 days. Rule out abnormal parathyroid status Check iPTH Half-normal saline. 150 cc an hour. -Chronic gout Allopurinol 100 mg a day -Depression Lexapro 10 mg a day -Essential hypertension, uncontrolled with possible CKD Stop Lopressor Catapres 0.1 mg twice daily -GERD Prilosec 40 mg a day -Chronic medical debility. At baseline can only take 2 or 3 steps with assistance. -Primary osteoarthritis Tylenol as needed -Moderate protein calorie malnutrition from decreased oral intake Ensure 1 can 3 times daily -Probable acute on chronic kidney disease Follow I's and O's. Renal ultrasound. IV fluids. Nephrology consulted -Hypernatremia from free water deficit from decreased oral intake IV fluids -Full code Discussed with patient and . Consult to nephrology and urology. Past Medical History Past Medical History: Hypertension, Skin Disorder Additional Past Medical History / Comment(s): pt was diagnosed with cellulits 2 years ago. pt has HTN and is currently taking lisinopril and metoprolol for management. History of Any Multi-Drug Resistant Organisms: None Reported Past Surgical History: Section, Cholecystectomy, Joint Replacement, Tonsillectomy, Tubal Ligation Additional Past Surgical History / Comment(s): pt states she has had 3 c- sections, tubal ligation, knee replacement, and partial knee replacement removal. Past Anesthesia/Blood Transfusion Reactions: No Reported Reaction Past Psychological History: No Psychological Hx Reported Smoking Status: Never smoker Past Alcohol Use History: None Reported Past Drug Use History: None Reported Medications and Allergies Home Medications Medication Instructions Recorded Confirmed Type Metoprolol Tartrate [Lopressor] 50 mg PO HS 10/30/19 07/27/23 History ALPRAZolam [Xanax] 0.5 mg PO Q12H PRN 07/27/23 07/27/23 History Acetaminophen Tab [Tylenol] 650 mg PO Q4H PRN MDD 3000mg 07/27/23 07/27/23 History Atrac-Tain 1 applic TOPICAL TUTHSA@2100 07/27/23 07/27/23 History Doxycycline [Vibramycin] 100 mg PO BID@0700,1900 07/27/23 07/27/23 History Escitalopram Oxalate [Lexapro] 10 mg PO DAILY@0700 07/27/23 07/27/23 History Ferrous Sulfate [Feosol] 325 mg PO MOWEFR@1300 07/27/23 07/27/23 History Nichole-Lanta 20 ml PO Q6H PRN 07/27/23 07/27/23 History L.acidoph,Paracasei, B.lactis 2 cap PO DAILY@1300 07/27/23 07/27/23 History [Probiotic] Liquacel 30 ml PO BID@0700,1700 07/27/23 07/27/23 History Omeprazole [PriLOSEC] 40 mg PO DAILY@0700 07/27/23 07/27/23 History Ondansetron [Zofran] 4 mg PO Q8H PRN 07/27/23 07/27/23 History Simethicone [Gas-X] 125 mg PO TID 07/27/23 07/27/23 History allopurinoL 100 mg PO DAILY 07/27/23 07/27/23 History bisacodyL [Dulcolax] 10 mg RECTAL Q3D PRN 07/27/23 07/27/23 History oxyCODONE HCL [OxyIR] 5 mg PO Q3H PRN 07/27/23 07/27/23 History polyethylene glycoL 3350 [Miralax] 17 gm PO DAILY PRN 07/27/23 07/27/23 History Allergies Allergy/AdvReac Type Severity Reaction Status Date / Time No Known Allergies Allergy Verified 07/27/23 09:56 Physical Exam Vitals: Vital Signs Temp Pulse Pulse Resp BP BP Pulse Ox 07/27/23 09:39 97.7 F 69 20 177/70 99 07/27/23 06:54 68 16 174/64 98 07/27/23 05:27 70 18 174/70 97 07/27/23 03:45 69 16 167/66 97 07/27/23 02:00 68 16 157/61 96 07/27/23 00:36 73 16 167/79 96 07/27/23 00:10 71 16 155/58 97 07/26/23 23:01 79 16 141/57 95 07/26/23 22:42 98.4 F 84 16 135/56 96 Intake and Output 07/26/23 07/27/23 07/27/23 22:59 06:59 14:59 Output Total 200 Balance -200 Output: Urine 200 Other: Voiding Method Indwelling Catheter Weight 145.15 kg Results CBC & Chem 7: 07/27/23 02:35 07/27/23 02:35 Labs: Abnormal Lab Results - Last 24 Hours (Table) 07/26/23 07/26/23 07/26/23 Range/Units 23:04 23:04 23:04 Hgb (11.4-16.0) gm/dL MCHC 30.8 L (31.0-37.0) g/dL RDW 16.2 H (11.5-15.5) % Monocytes # (Manual) 1.14 H (0-1.0) k/uL Sodium 148 H (137-145) mmol/L Chloride 118 H (98-107) mmol/L BUN 54 H (7-17) mg/dL Creatinine 2.48 H (0.52-1.04) mg/dL Glucose 106 H (74-99) mg/dL Calcium 13.9 H* (8.4-10.2) mg/dL Ionized Calcium Desi 7.9 H* (4.5-5.3) mg/dL AST 99 H (14-36) U/L ALT 51 H (4-34) U/L Alkaline Phosphatase 310 H (38-126) U/L Troponin I 0.043 H* (0.000-0.034) ng/mL Total Protein 5.9 L (6.3-8.2) g/dL Albumin 2.7 L (3.5-5.0) g/dL Lipase 501 H (23-300) U/L 07/27/23 07/27/23 07/27/23 Range/Units 02:35 02:35 02:35 Hgb 10.9 L (11.4-16.0) gm/dL MCHC 29.1 L (31.0-37.0) g/dL RDW 16.1 H (11.5-15.5) % Monocytes # (Manual) (0-1.0) k/uL Sodium 149 H (137-145) mmol/L Chloride 118 H (98-107) mmol/L BUN 54 H (7-17) mg/dL Creatinine 2.45 H (0.52-1.04) mg/dL Glucose 110 H (74-99) mg/dL Calcium 13.6 H* (8.4-10.2) mg/dL Ionized Calcium Desi (4.5-5.3) mg/dL AST 111 H (14-36) U/L ALT 54 H (4-34) U/L Alkaline Phosphatase 307 H (38-126) U/L Troponin I 0.038 H* (0.000-0.034) ng/mL Total Protein 5.7 L (6.3-8.2) g/dL Albumin 2.6 L (3.5-5.0) g/dL Lipase (23-300) U/L 07/27/23 Range/Units 06:15 Hgb (11.4-16.0) gm/dL MCHC (31.0-37.0) g/dL RDW (11.5-15.5) % Monocytes # (Manual) (0-1.0) k/uL Sodium (137-145) mmol/L Chloride (98-107) mmol/L BUN (7-17) mg/dL Creatinine (0.52-1.04) mg/dL Glucose (74-99) mg/dL Calcium (8.4-10.2) mg/dL Ionized Calcium Desi (4.5-5.3) mg/dL AST (14-36) U/L ALT (4-34) U/L Alkaline Phosphatase (38-126) U/L Troponin I 0.036 H* (0.000-0.034) ng/mL Total Protein (6.3-8.2) g/dL Albumin (3.5-5.0) g/dL Lipase (23-300) U/L
--- NOTE | 2023-07-27 16:17 | XR ---
EXAMINATION TYPE: XR KUB DATE OF EXAM: 07/27/2023 Comparison: CT 07/26/2023 Clinical History: 73-year-old female Left ureteral calculus Findings: Cholecystectomy clips. A rounded shadow at the upper pole the left kidney suggestive of the patient's known 6.7 cm cortical cyst. No suspicious calcification is clearly appreciated radiographically. Non obstructive bowel gas pattern. No significant stool burden. Impression: No suspicious calcification clearly identified radiographically.
[2023-07-27 16:35] LABS: Amorphous Sediment,Urine Rare /hpf; Appearance,Urine Cloudy (Clear); Bacteria,Urine Rare /hpf; Bilirubin,Urine Negative (Negative); Blood,Urine Moderate (Negative); Color,Urine Light Yellow; Glucose,Urine (UA) Negative (Negative); Hyaline Casts,Urine 30 /lpf (0-2); Ketones,Urine Negative (Negative); Leukocyte Esterase,Urine Moderate (Negative); Mucus,Urine Occasional /hpf; Nitrite,Urine Negative (Negative); Protein,Urine Trace (Negative); RBC,Urine >182 /hpf (0-5); Specific Gravity,Urine 1.014 (1.001-1.035); Squamous Epithelial Cell,Urine 1 /hpf (0-4); Urobilinogen,Urine <2.0 mg/dL (<2.0); WBC,Urine 12 /hpf (0-5)
--- NOTE | 2023-07-27 17:19 | US ---
EXAMINATION TYPE: US kidneys/renal and bladder DATE OF EXAM: 07/27/2023 COMPARISON: CT yesterday CLINICAL INDICATION: Female, 73 years old with history of Evaluate for CKD; Patient not able to give history EXAM MEASUREMENTS: Right Kidney: 12.3 x 5.6 x 5.3 cm Left Kidney: 13.5 x 7.1 x 6.0 cm Right Kidney: A possible 2.0 cm lateral cyst. Internal echoes could be artifactual could represent de bris. Suspect some mild perinephric edema which could reflect chronic kidney disease or significant c hange. Left Kidney: A few cysts measuring up to 5.4 cm. There is mild hydronephrosis Bladder: Not able to assess, Lay noted Bilateral Jets seen: Not able to assess Normal Post Void Residual: NA Post Void Residual Volume: NA IMPRESSION: 1. Mild left-sided hydronephrosis as seen on CT yesterday. 2. Dominant 5.4 cm left renal cyst. 3. Unable to assess the bladder due to Lay catheter.
[2023-07-27] MEDS: ENOXAPARIN 30 MG/0.3 ML SYRINGE SQ SCH (17:43)
[2023-07-27] MEDS: SIMETHICONE 80 MG CHEWABLE PO SCH (17:44)
--- NOTE | 2023-07-27 18:38 | P.CRDCN ---
History of Present Illness History of present illness: This is Dr. Saucedo dictating a consult on this patient The patient was interviewed and examined IMPRESSION / ASSESSMENT: Patient admitted with mental status changes and hypercalcemia, likely primary hyperparathyroidism Cardiology consulted for abnormal troponins with a flat trend Twelve-lead EKG shows LVH Abnormal renal function Hyper natremia, elevated chloride, management per primary attending PLAN: Evaluate and treat hypercalcemia of nephrology for abnormal renal function and hyponatremia Will get 2D echo and Doppler study from a cardiac standpoint and continue telemetry monitoring HPI Patient presented with increasing lethargy fatigue Denied any chest discomfort no shortness of breath Complained of generalized bodyaches for the last several days ROS: No fever chills or rigors, no cough, phlegm or expectoration, no nausea, vomiting or diarrhea, no hematuria, dysuria, no musculoskeletal complaints, no strokes or seizures, no skin lesions. EXAMINATION: Heart sounds regular Normal breath sounds Tongue is dry Poor historian alert awake but unable to give a history and does not know why she is here REVIEW OF LABS, ECG & MEDICAL DATA Borderline abnormal troponins with a flat trend 12 EKG shows LVH Past Medical History Past Medical History: Hypertension, Skin Disorder Additional Past Medical History / Comment(s): pt was diagnosed with cellulits 2 years ago. pt has HTN and is currently taking lisinopril and metoprolol for management. History of Any Multi-Drug Resistant Organisms: None Reported Past Surgical History: Section, Cholecystectomy, Joint Replacement, Tonsillectomy, Tubal Ligation Additional Past Surgical History / Comment(s): pt states she has had 3 c- sections, tubal ligation, knee replacement, and partial knee replacement removal. Past Anesthesia/Blood Transfusion Reactions: No Reported Reaction Past Psychological History: No Psychological Hx Reported Smoking Status: Never smoker Past Alcohol Use History: None Reported Past Drug Use History: None Reported Medications and Allergies Home Medications Medication Instructions Recorded Confirmed Type Metoprolol Tartrate [Lopressor] 50 mg PO HS 10/30/19 07/27/23 History ALPRAZolam [Xanax] 0.5 mg PO Q12H PRN 07/27/23 07/27/23 History Acetaminophen Tab [Tylenol] 650 mg PO Q4H PRN MDD 3000mg 07/27/23 07/27/23 History Atrac-Tain 1 applic TOPICAL TUTHSA@2100 07/27/23 07/27/23 History Doxycycline [Vibramycin] 100 mg PO BID@0700,1900 07/27/23 07/27/23 History Escitalopram Oxalate [Lexapro] 10 mg PO DAILY@0700 07/27/23 07/27/23 History Ferrous Sulfate [Feosol] 325 mg PO MOWEFR@1300 07/27/23 07/27/23 History Nichole-Lanta 20 ml PO Q6H PRN 07/27/23 07/27/23 History L.acidoph,Paracasei, B.lactis 2 cap PO DAILY@1300 07/27/23 07/27/23 History [Probiotic] Liquacel 30 ml PO BID@0700,1700 07/27/23 07/27/23 History Omeprazole [PriLOSEC] 40 mg PO DAILY@0700 07/27/23 07/27/23 History Ondansetron [Zofran] 4 mg PO Q8H PRN 07/27/23 07/27/23 History Simethicone [Gas-X] 125 mg PO TID 07/27/23 07/27/23 History allopurinoL 100 mg PO DAILY 07/27/23 07/27/23 History bisacodyL [Dulcolax] 10 mg RECTAL Q3D PRN 07/27/23 07/27/23 History oxyCODONE HCL [OxyIR] 5 mg PO Q3H PRN 07/27/23 07/27/23 History polyethylene glycoL 3350 [Miralax] 17 gm PO DAILY PRN 07/27/23 07/27/23 History Allergies Allergy/AdvReac Type Severity Reaction Status Date / Time No Known Allergies Allergy Verified 07/27/23 09:56 Physical Exam Vitals: Vital Signs Temp Pulse Resp BP Pulse Ox 07/27/23 06:54 68 16 174/64 98 07/27/23 05:27 70 18 174/70 97 07/27/23 03:45 69 16 167/66 97 07/27/23 02:00 68 16 157/61 96 07/27/23 00:36 73 16 167/79 96 07/27/23 00:10 71 16 155/58 97 07/26/23 23:01 79 16 141/57 95 07/26/23 22:42 98.4 F 84 16 135/56 96 Intake and Output 05/07/27/23 07/27/23 22:59 06:59 14:59 Output Total 200 Balance -200 Output: Urine 200 Other: Weight 145.15 kg Results 07/27/23 02:35 07/27/23 02:35 Cardiac Enzymes 07/26/23 07/26/23 07/27/23 Range/Units 23:04 23:04 02:35 AST 99 H 111 H (14-36) U/L Troponin I 0.043 H* (0.000-0.034) ng/mL 07/27/23 07/27/23 Range/Units 02:35 06:15 AST (14-36) U/L Troponin I 0.038 H* 0.036 H* (0.000-0.034) ng/mL CBC 07/26/23 07/27/23 Range/Units 23:04 02:35 WBC 9.5 9.8 (3.8-10.6) k/uL RBC 4.13 3.94 (3.80-5.40) m/uL Hgb 11.9 10.9 L (11.4-16.0) gm/dL Hct 38.6 37.5 (34.0-46.0) % Plt Count 321 342 (150-450) k/uL Comprehensive Metabolic Panel 07/26/23 07/27/23 Range/Units 23:04 02:35 Sodium 148 H 149 H (137-145) mmol/L Potassium 4.3 4.2 (3.5-5.1) mmol/L Chloride 118 H 118 H (98-107) mmol/L Carbon Dioxide 26 28 (22-30) mmol/L BUN 54 H 54 H (7-17) mg/dL Creatinine 2.48 H 2.45 H (0.52-1.04) mg/dL Glucose 106 H 110 H (74-99) mg/dL Calcium 13.9 H* 13.6 H* (8.4-10.2) mg/dL AST 99 H 111 H (14-36) U/L ALT 51 H 54 H (4-34) U/L Alkaline Phosphatase 310 H 307 H (38-126) U/L Total Protein 5.9 L 5.7 L (6.3-8.2) g/dL Albumin 2.7 L 2.6 L (3.5-5.0) g/dL Current Medications Generic Name Dose Route Start Last Admin Trade Name Freq PRN Reason Stop Dose Admin Acetaminophen 650 mg 07/26/23 23:06 Acetaminophen Tab 325 Mg Tab PO Q6HR PRN Mild Pain or Fever > 100.5 Heparin Sodium (Porcine) 5,000 unit 07/27/23 00:00 07/27/23 00:34 Heparin Sodium,Porcine 5,000 Unit/Ml 1 Ml Vial SQ 5,000 unit Q8HR YAO Administration Naloxone HCl 0.2 mg 07/26/23 23:06 Naloxone 0.4 Mg/Ml 1 Ml Vial IV Q2M PRN Opioid Reversal Ondansetron HCl 4 mg 07/26/23 23:06 Ondansetron 4 Mg/2 Ml Vial IVP Q8HR PRN Nausea And Vomiting Intake and Output 07/26/23 07/27/23 07/27/23 22:59 06:59 14:59 Output Total 200 Balance -200 Output: Urine 200 Other: Weight 145.15 kg 07/27/23 02:35 07/27/23 02:35
[2023-07-27] MEDS: cloNIDine HCL 0.1 MG TAB PO SCH (21:51)
[2023-07-28] MEDS: ONDANSETRON 4 MG/2 ML VIAL IVP PRN (03:17)
[2023-07-28 03:55] LABS: Chloride 114 mmol/L (98-107)
[2023-07-28 03:57] LABS: ALT 81 U/L (4-34); AST 125 U/L (14-36); African American GFR (CKD) 23 (>60 ml/min/1.73 sqM); Albumin 2.8 g/dL (3.5-5.0); Alkaline Phosphatase 349 U/L (38-126); Anion Gap 6 mmol/L; Blood Urea Nitrogen 51 mg/dL (7-17); Calcium 12.9 mg/dL (8.4-10.2); Carbon Dioxide 25 mmol/L (22-30); Glucose 115 mg/dL (74-99); Non-African American GFR(CKD) 20 (>60 ml/min/1.73 sqM); Phosphorus 2.7 mg/dL (2.5-4.5); Potassium 3.9 mmol/L (3.5-5.1); Sodium 145 mmol/L (137-145); Total Bilirubin 0.7 mg/dL (0.2-1.3); Total Protein 5.8 g/dL (6.3-8.2)
--- NOTE | 2023-07-28 15:13 | P.PN ---
Progress Note - Text Progress Note Date: 07/28/23 Chief Complaint: Weak and tired This is a pleasant 73-year-old patient currently resident of [facility]. In [place]. Patient's at the bedside. At the baseline patient not able to walk. Needs full assist. May take couple of steps. For last 6 days patient is barely been eating. Having nausea vomiting. Has felt warm. Tired rundown. Was found to have elevated sodium and increase calcium in the ER. Started on IV fluids. CT scan at [facility] showed mild to moderate left hydronephrosis with a 6.4 mm left proximal ureteral calculus. No abdominal pain. July 28, 2023: Remains on half saline at 150 cc an hour. Some decrease in sodium and slight decrease in creatinine. iPTH come back elevated. Eating about 25%. Tired. Clonidine was added yesterday for blood pressure control. Patient seems to have primary hyperparathyroidism. Though has normal vitamin D level. Patient to be started on Sensipar. 30 mg twice daily. There is no renal dose adjustment. Active Medications Acetaminophen (Acetaminophen Tab 325 Mg Tab) 650 mg PO Q6HR PRN PRN Reason: Mild Pain or Fever > 100.5 Allopurinol (Allopurinol 100 Mg Tab) 100 mg PO DAILY [facility] Last Admin: 07/28/23 10:09 Dose: Not Given Alprazolam (Alprazolam 0.5 Mg Tab) 0.5 mg PO Q12H PRN PRN Reason: Anxiety Cinacalcet (Cinacalcet 30 Mg Tab) 30 mg PO DAILY [facility] Clonidine (Clonidine Hcl 0.1 Mg Tab) 0.1 mg PO BID [facility] Last Admin: 07/28/23 10:10 Dose: Not Given Enoxaparin Sodium (Enoxaparin 30 Mg/0.3 Ml Syringe) 30 mg SQ DAILY [facility] Last Admin: 07/28/23 10:10 Dose: Not Given Escitalopram Oxalate (Escitalopram 10 Mg Tab) 10 mg PO DAILY@0700 [facility] Last Admin: 07/28/23 06:43 Dose: 10 mg Sodium Chloride (Saline 0.45%) 1,000 mls @ 150 mls/hr IV .Q6H40M [facility] Last Admin: 07/28/23 06:45 Dose: Not Given Naloxone HCl (Naloxone 0.4 Mg/Ml 1 Ml Vial) 0.2 mg IV Q2M PRN PRN Reason: Opioid Reversal Ondansetron HCl (Ondansetron 4 Mg/2 Ml Vial) 4 mg IVP Q8HR PRN PRN Reason: Nausea And Vomiting Last Admin: 07/28/23 03:17 Dose: 4 mg Oxycodone HCl (Oxycodone Hcl 5 Mg Tab) 5 mg PO Q3H PRN PRN Reason: Severe Pain (Scale 7 to 10) Last Admin: 07/28/23 03:17 Dose: 5 mg Pantoprazole Sodium (Pantoprazole 40 Mg Tablet) 40 mg PO DAILY@0700 [facility] Last Admin: 07/28/23 06:43 Dose: 40 mg Simethicone (Simethicone 80 Mg Chewable) 120 mg PO TID [facility] Last Admin: 07/28/23 10:10 Dose: Not Given Social history: No smoking. No alcohol. Currently resident of [facility].. Physical examination: VITAL SIGNS: 97.7, 75, 18, 144/65: 98% room air GENERAL: BMI 47.3, reclining in bed somewhat slightly lethargic. EYES: Pupils equal. Conjunctiva ozzy l. HEENT: External appearance of nose and ears normal, oral cavity grossly dry mucous membrane l. NECK: JVD not raised; masses not palpable. HEART: First and second heart sounds are normal; no edema. LUNGS: Respiratory rate normal; clear to auscultation. ABDOMEN: Soft, nontender, liver spleen not palpable, no masses palpable. PSYCH: Tired able to answer simple questions l. MUSCULOSKELETAL:No Clubbing/cyanosis;muscles-grossly intact. OA Dermatological: Chronic venous changes lower extremity INVESTIGATIONS, reviewed in the clinical context: Renal ultrasound [July 27, 2023] mild left-sided hydronephrosis. Dominant 5.4 elevated left kidney cyst. July 27: Potassium 3.9 sodium 145 BUN 51 creatinine 2.38 calcium 12.9 AST 125 ALT 81 albumin 2.8. Phosphorus 2.7 Vitamin D 25-hydroxy: 56.1 PTH intact: 121 July 27, 2023: White count 9.8 hemoglobin 10.9 platelets 342 sodium 149 potassium 4.2 chloride 118 BUN 54 creatinine 2.45 calcium 13.6 AST 111 ALT 54 Troponin I 0.043, 0.038, 0.036 July 26, 2023: White count 9.5 hemoglobin 11.9 platelets 321 sodium 140 potassium 4.3 BUN 54 creatinine 2.48 calcium 13.9 ionized calcium 7.9 phosphorus 3.1 albumin 2.7 EKG tracing personally reviewed by me-normal sinus rhythm. Some ST-T wave changes. Assessment plan: -Acute metabolic encephalopathy, from severe electrolyte abnormality: Some improvement -Primary hyperparathyroidism causing hypercalcemia. Start Sensipar 30 mg twice daily iPTH 121. Vitamin D: 56.1 Half-normal saline. 150 cc an hour. -Chronic gout Allopurinol 100 mg a day -Depression Lexapro 10 mg a day -Essential hypertension, with e CKD Catapres 0.1 mg twice daily -GERD Prilosec 40 mg a day -Chronic medical debility. At baseline can only take 2 or 3 steps with assista nce. -Primary osteoarthritis Tylenol as needed -Moderate protein calorie malnutrition from decreased oral intake Ensure 1 can 3 times daily -Probable acute on chronic kidney disease Follow I's and O's. Renal ultrasound. IV fluids. Nephrology consulted -Left hydronephrosis Being followed by urology Dr. Calixto Continue workup for hypercalcemia -Hypernatremia from free water deficit from decreased oral intake: Better IV fluids -Full code Continue IV fluids. I's and O's. Labs. Check 24-hour urinary calcium. Sensipar started. Follow labs Past Medical History Past Medical History: Hypertension, Skin Disorder Additional Past Medical History / Comment(s): pt was diagnosed with cellulits 2 years ago. pt has HTN and is currently taking lisinopril and metoprolol for management. History of Any Multi-Drug Resistant Organisms: None Reported Past Surgical History: Section, Cholecystectomy, Joint Replacement, Tonsillectomy, Tubal Ligation Additional Past Surgical History / Comment(s): pt states she has had 3 c- sections, tubal ligation, knee replacement, and partial knee replacement removal. Past Anesthesia/Blood Transfusion Reactions: No Reported Reaction Past Psychological History: No Psychological Hx Reported Smoking Status: Never smoker Past Alcohol Use History: None Reported Past Drug Use History: None Reported
[2023-07-28] MEDS: CINACALCET 30 MG TAB PO SCH (16:00)
[2023-07-28] MEDS: cloNIDine HCL 0.1 MG TAB PO STA (17:41)
--- NOTE | 2023-07-28 20:51 | P.PN ---
Subjective Patient is seen for follow-up for acute kidney injury and hypercalcemia. Currently maintained on IV fluids. Patient did not pass swallow evaluation as she is not able to follow commands. Serum calcium decreased to 12.9 today and serum creatinine down to 2.38. Objective - Vital Signs Vital signs: Vital Signs Temp 97.7 F 07/28/23 12:40 Pulse 67 07/28/23 16:00 Resp 18 07/28/23 16:00 BP 182/78 07/28/23 16:00 Pulse Ox 98 07/28/23 16:00 FiO2 Intake & Output 07/28/23 07/28/23 07/29/23 06:59 18:59 06:59 Output Total 200 Balance -200 Weight 145.15 kg Output: Urine 200 Other: Voiding Method Indwelling Catheter - Exam patient is awake. She does not communicate much. Examination of the heart S1 and S2 Examination of the lungs bilateral breath sounds are heard Abdomen is soft obese nontender Examination of lower extremity shows no significant edema [employer] exam shows patient is moving all 4 extremities. She does not communicate much. - Labs CBC & Chem 7: 07/27/23 02:35 07/28/23 03:11 Labs: Abnormal Lab Results - Last 24 Hours (Table) 07/26/23 07/27/23 07/28/23 Range/Units 23:04 02:35 03:11 Chloride 114 H (98-107) mmol/L BUN 51 H (7-17) mg/dL Creatinine 2.38 H (0.52-1.04) mg/dL Glucose 115 H (74-99) mg/dL Calcium 12.9 H (8.4-10.2) mg/dL AST 125 H (14-36) U/L ALT 81 H (4-34) U/L Alkaline Phosphatase 349 H (38-126) U/L Total Protein 5.8 L (6.3-8.2) g/dL Albumin 2.8 L (3.5-5.0) g/dL Vit D 1,25-Dihydroxy 19 L (20 - 79) pg/mL PTH Intact 121.0 H (14.0-72.0) pg/mL Assessment and Plan Assessment: 1. Acute kidney injury secondary to hypercalcemia, ATN currently nonoliguric. Patient is maintained on IV fluids. check UA. Computed tomography scan shows left ureteral calculus and left [id number] hydronephrosis. 2. Hypercalcemia associated with underlying primary hyperparathyroidism. PTH level is elevated at 121. 25-hydroxy vitamin D at 56 and 1, 25-hydroxy vitamin D level is low at 19. 3. Hypernatremia associated with free water deficit 4. Left ureteral calculus with left [id number] hydronephrosis being followed by urology. Plan: Continue with IV fluids. Decrease rate to 70 cc an hour. check parathyroid nuclear scan as PTH is elevated. Start Sensipar at 30 mg daily. Avoid nephrotoxic agents Repeat labs in a.m.
[2023-07-28] MEDS ORDERED: CINACALCET 30 MG TAB PO SCH (21:00)
--- NOTE | 2023-07-28 21:50 | P.PN ---
Subjective Progress Note Date: 07/28/23 Principal diagnosis: Left ureteral calculus Patient is a 73-year-old white female being evaluated for hypercalcemia. She has a 6.4 mm obstructing left proximal ureteral calculus. She currently denies flank pain. Her serum PTH level is elevated, as expected. Objective - Vital Signs Vital signs: Vital Signs Temp 97.8 F 07/27/23 16:27 Pulse 71 07/28/23 04:59 Resp 13 07/28/23 04:59 BP 176/74 07/28/23 04:59 Pulse Ox 97 07/28/23 04:59 FiO2 Intake & Output 07/27/23 07/27/23 07/28/23 06:59 18:59 06:59 Intake Total 1290 Output Total 200 575 Balance -200 715 Weight 145.15 kg Intake: Intake, IV Titration 1200 Amount Sodium Chloride 0.45% 1, 1200 000 ml @ 150 mls/hr IV . Q6H40M [facility] Rx#:[id number] Oral 90 Output: Urine 200 575 Other: Voiding Method Indwelling Catheter - Constitutional General appearance: Present: average body habitus, cooperative, no acute distress - Psychiatric Psychiatric: Present: A&O x's 3 - Labs CBC & Chem 7: 07/27/23 02:35 07/28/23 03:11 Labs: Abnormal Lab Results - Last 24 Hours (Table) 07/26/23 07/27/23 07/27/23 Range/Units 23:04 06:15 16:08 Chloride (98-107) mmol/L BUN (7-17) mg/dL Creatinine (0.52-1.04) mg/dL Glucose (74-99) mg/dL Calcium (8.4-10.2) mg/dL AST (14-36) U/L ALT (4-34) U/L Alkaline Phosphatase (38-126) U/L Troponin I 0.036 H* (0.000-0.034) ng/mL Total Protein (6.3-8.2) g/dL Albumin (3.5-5.0) g/dL PTH Intact 121.0 H (14.0-72.0) pg/mL Urine Appearance Cloudy H (Clear) Urine Protein Trace H (Negative) Urine Blood Moderate H (Negative) Ur Leukocyte Esterase Moderate H (Negative) Urine RBC >182 H (0-5) /hpf Urine WBC 12 H (0-5) /hpf Amorphous Sediment Rare H (None) /hpf Urine Bacteria Rare H (None) /hpf Hyaline Casts 30 H (0-2) /lpf Urine Mucus Occasional H (None) /hpf 07/28/23 Range/Units 03:11 Chloride 114 H (98-107) mmol/L BUN 51 H (7-17) mg/dL Creatinine 2.38 H (0.52-1.04) mg/dL Glucose 115 H (74-99) mg/dL Calcium 12.9 H (8.4-10.2) mg/dL AST 125 H (14-36) U/L ALT 81 H (4-34) U/L Alkaline Phosphatase 349 H (38-126) U/L Troponin I (0.000-0.034) ng/mL Total Protein 5.8 L (6.3-8.2) g/dL Albumin 2.8 L (3.5-5.0) g/dL PTH Intact (14.0-72.0) pg/mL Urine Appearance (Clear) Urine Protein (Negative) Urine Blood (Negative) Ur Leukocyte Esterase (Negative) Urine RBC (0-5) /hpf Urine WBC (0-5) /hpf Amorphous Sediment (None) /hpf Urine Bacteria (None) /hpf Hyaline Casts (0-2) /lpf Urine Mucus (None) /hpf Assessment and Plan (1) Ureterolithiasis Current Visit: Yes Status: Acute Code(s): N20.1 - CALCULUS OF URETER SNOMED Code(s): 25839637 (2) Hydronephrosis with renal and ureteral calculous obstruction Current Visit: Yes Status: Acute Code(s): N13.2 - HYDRONEPHROSIS WITH RENAL AND URETERAL CALCULOUS OBSTRUCTION SNOMED Code(s): 729228882 Plan: The patient likely has developed a ureteral calculus as a result of hypercalcemia. Her serum parathyroid hormone level is elevated. Her renal insufficiency is likely multifactorial, but the obstructing ureteral calculus may be contributing to this. Urinalysis shows no evidence of infection. I would suggest she be placed on tamsulosin if there are no contraindications. Urine will be strained. A ureteral stent could be placed to relieve ureteral obstruction and optimize renal function. The calculus was not visible on a KUB x-ray, so if the stone is to be removed she will require ureteroscopy. Will continue to follow with you.
[2023-07-29 03:11] LABS: Hepatitis A Antibody IgM Nonreactive (Nonreactive); Hepatitis B Core IgM Nonreactive (Nonreactive); Hepatitis B Surface Antigen Nonreactive (Nonreactive); Hepatitis C IgG Antibody Nonreactive (Nonreactive)
[2023-07-29 03:47] LABS: Anisocytosis Slight; Basophils # (A) 0.1 k/uL (0-0.2); Basophils % (A) 1 %; Eosinophils # (A) 0.4 k/uL (0-0.7); Eosinophils % (A) 5 %; HCT 34.6 % (34.0-46.0); HGB 10.1 gm/dL (11.4-16.0); Hypochromasia Marked; Lymphocytes # (A) 0.9 k/uL (1.0-4.8); Lymphocytes % (A) 11 %; MCH 27.5 pg (25.0-35.0); MCHC 29.1 g/dL (31.0-37.0); MCV 94.3 fL (80.0-100.0); Mean Platelet Volume 8.2; Monocytes # (A) 0.5 k/uL (0-1.0); Monocytes % (A) 6 %; Neutrophils # (A) 5.9 k/uL (1.3-7.7); Neutrophils % (A) 76 %; Platelet Count 273 k/uL (150-450); RBC 3.66 m/uL (3.80-5.40); RDW 16.4 % (11.5-15.5); WBC 7.8 k/uL (3.8-10.6)
[2023-07-29 03:55] LABS: ALT 73 U/L (4-34); AST 94 U/L (14-36); African American GFR (CKD) 19 (>60 ml/min/1.73 sqM); Albumin 2.4 g/dL (3.5-5.0); Alkaline Phosphatase 328 U/L (38-126); Anion Gap 4 mmol/L; Blood Urea Nitrogen 48 mg/dL (7-17); Calcium 11.8 mg/dL (8.4-10.2); Carbon Dioxide 23 mmol/L (22-30); Chloride 116 mmol/L (98-107); Glucose 96 mg/dL (74-99); Non-African American GFR(CKD) 17 (>60 ml/min/1.73 sqM); Phosphorus 2.3 mg/dL (2.5-4.5); Sodium 143 mmol/L (137-145); Total Bilirubin 0.5 mg/dL (0.2-1.3); Total Protein 5.3 g/dL (6.3-8.2)
--- NOTE | 2023-07-29 08:36 | CDI ---
Documentation Clarification Form Date: 07/29/2023 From: [facility] Phone: [phone] Admit Date: 07/26/2023 11:06:00 PM Patient Name: Davina Hager I Visit Number: [id number] Discharge Date: ATTENTION: The Clinical Documentation Specialists (CDI) and [facility] Coding Staff appreciate your assistance in clarifying documentation. Please respond to the clarification below the line at the bottom and electronically sign. The CDI & [facility] Coding staff will review the response and follow-up if needed. Please note: Queries are made part of the Legal Health Record. If you have any questions, please contact the author of this message via ITS. Dr. Jackson Hernandez: Patient has a documented BMI of 47.3 on 07/25. Additional clarification is requested. History/Risk Factors: 73-year-old female with a history of dementia, CKD, HTN, chronic lymphedema and CHF who presents with hypercalcemia and concern for hyperparathyroidism Clinical Indicators: 07/25 ED note, General Exam: "Patient is obese." 07/25 Patients weight is 145.15 kg Patients height is 5ft 9in Calculated BMI is 47.3 Treatments: Healthy Heart diet Strict I&O's Please clarify if patients BMI indicates an additional diagnosis: [ + ] Morbid (Extreme) (severe) obesity [ ] No additional diagnosis/not clinically significant [ ] Other, please specify ____ [ ] Unable to determine Reference: NIH Classification for BMI Overweight BMI 2529.9 Obesity (Class 1) BMI 3034.9 Obesity (Class 2) BMI 3539.9 Morbid obesity (Class 3/Extreme/severe) BMI =40 MTDD
[2023-07-29] MEDS: CINACALCET 30 MG TAB PO SCH (09:02)
--- NOTE | 2023-07-29 12:19 | NM ---
EXAMINATION TYPE: NM parathyroid DATE OF EXAM: 07/29/2023 COMPARISON: NONE CLINICAL INDICATION: Female, 73 years old with history of r/o adenoma; TECHNIQUE: Following administration of 25.5 mCi Tc99m Sestamibi. Anterior projection images of the neck and ches t were obtained 15 minutes and 3 hours post injection FINDINGS: Thyroid tracer washout: Delayed images demonstrate near-complete tracer washout from the thyroid. Parathyroid uptake: Following delayed images imaging over the thyroid bed has some focal uptake along the inferior left thyroid bed region. Findings are suspicious for parathyroid adenoma. Normal uptake: There is physiological tracer uptake in the myocardium, liver, salivary glands, and th yroid gland. IMPRESSION: Uptake in the inferior left thyroid bed region on delayed images suggest underlying parathyroid adeno ma.
--- NOTE | 2023-07-29 14:46 | P.PN ---
Progress Note - Text Progress Note Date: 07/29/23 Chief Complaint: Weak and tired This is a pleasant 73-year-old patient currently resident of [facility]. In [place]. Patient's at the bedside. At the baseline patient not able to walk. Needs full assist. May take couple of steps. For last 6 days patient is barely been eating. Having nausea vomiting. Has felt warm. Tired rundown. Was found to have elevated sodium and increase calcium in the ER. Started on IV fluids. CT scan at [facility] showed mild to moderate left hydronephrosis with a 6.4 mm left proximal ureteral calculus. No abdominal pain. July 28, 2023: Remains on half saline at 150 cc an hour. Some decrease in sodium and slight decrease in creatinine. iPTH come back elevated. Eating about 25%. Tired. Clonidine was added yesterday for blood pressure control. Patient seems to have primary hyperparathyroidism. Though has normal vitamin D level. Patient to be started on Sensipar. 30 mg twice daily. There is no renal dose adjustment. July 28: Poor oral intake. IV fluids at 75 cc an hour. Parathyroid nuclear scan showed increased focal uptake along the inferior left thyroid bed region. Suspicious for parathyroid adenoma. Spoke to and patient's sister at the bedside. Patient is at high risk for surgery. Will follow further. Decreased oral intake. On Sensipar. Given patient's poor intake for last few days decreased moderate protein calorie malnutrition. Some reduction in calcium Active Medications Acetaminophen (Acetaminophen Tab 325 Mg Tab) 650 mg PO Q6HR PRN PRN Reason: Mild Pain or Fever > 100.5 Allopurinol (Allopurinol 100 Mg Tab) 100 mg PO DAILY [facility] Last Admin: 07/29/23 09:01 Dose: 100 mg Alprazolam (Alprazolam 0.5 Mg Tab) 0.5 mg PO Q12H PRN PRN Reason: Anxiety Cinacalcet (Cinacalcet 30 Mg Tab) 30 mg PO DAILY [facility] Last Admin: 07/29/23 09:02 Dose: 30 mg Clonidine (Clonidine Hcl 0.1 Mg Tab) 0.1 mg PO BID [facility] Last Admin: 07/29/23 09:02 Dose: 0.1 mg Enoxaparin Sodium (Enoxaparin 30 Mg/0.3 Ml Syringe) 30 mg SQ DAILY [facility] Last Admin: 07/29/23 09:02 Dose: 30 mg Escitalopram Oxalate (Escitalopram 10 Mg Tab) 10 mg PO DAILY@0700 [facility] Last Admin: 07/29/23 06:36 Dose: 10 mg Sodium Chloride (Saline 0.45%) 1,000 mls @ 75 mls/hr IV .[id number] [facility] Last Admin: 07/28/23 21:11 Dose: 75 mls/hr Naloxone HCl (Naloxone 0.4 Mg/Ml 1 Ml Vial) 0.2 mg IV Q2M PRN PRN Reason: Opioid Reversal Ondansetron HCl (Ondansetron 4 Mg/2 Ml Vial) 4 mg IVP Q8HR PRN PRN Reason: Nausea And Vomiting Last Admin: 07/28/23 03:17 Dose: 4 mg Oxycodone HCl (Oxycodone Hcl 5 Mg Tab) 5 mg PO Q3H PRN PRN Reason: Severe Pain (Scale 7 to 10) Last Admin: 07/28/23 03:17 Dose: 5 mg Pantoprazole Sodium (Pantoprazole 40 Mg Tablet) 40 mg PO DAILY@0700 [facility] Last Admin: 07/29/23 06:36 Dose: 40 mg Simethicone (Simethicone 80 Mg Chewable) 120 mg PO TID [facility] Last Admin: 07/29/23 09:02 Dose: 120 mg Social history: No smoking. No alcohol. Currently resident of [facility].. Physical examination: VITAL SIGNS: 98.1, 65, 16, 144 x 66, 97% room GENERAL: Tired, awake EYES: Pupils equal. Conjunctiva ozzy l. HEENT: External appearance of nose and ears normal, oral cavity grossly dry mucous membrane l. NECK: JVD not raised; masses not palpable. HEART: First and second heart sounds are normal; no edema. LUNGS: Respiratory rate normal; clear to auscultation. ABDOMEN: Soft, nontender, liver spleen not palpable, no masses palpable. PSYCH: Tired able to answer simple questions l depressed appearing. MUSCULOSKELETAL:No Clubbing/cyanosis;muscles-grossly intact. OA Dermatological: Chronic venous changes lower extremity INVESTIGATIONS, reviewed in the clinical context: July 28: White count 7.8 hemoglobin 10.1 sodium 143 potassium 4 BUN 48 creatinine 2.76 phosphorus 2.3 albumin 2.4. Calcium 11.8 Renal ultrasound [July 27, 2023] mild left-sided hydronephrosis. Dominant 5.4 elevated left kidney cyst. July 27: Potassium 3.9 sodium 145 BUN 51 creatinine 2.38 calcium 12.9 AST 125 ALT 81 albumin 2.8. Phosphorus 2.7 Vitamin D 25-hydroxy: 56.1 PTH intact: 121. Vitamin D 1, 25-dihydroxy low at 19 July 27, 2023: White count 9.8 hemoglobin 10.9 platelets 342 sodium 149 potassium 4.2 chloride 118 BUN 54 creatinine 2.45 calcium 13.6 AST 111 ALT 54 Troponin I 0.043, 0.038, 0.036 July 26, 2023: White count 9.5 hemoglobin 11.9 platelets 321 sodium 140 potassium 4.3 BUN 54 creatinine 2.48 calcium 13.9 ionized calcium 7.9 phosphorus 3.1 albumin 2.7 EKG tracing personally reviewed by me-normal sinus rhythm. Some ST-T wave changes. Assessment plan: -Acute metabolic encephalopathy, from severe electrolyte abnormality: Improvement -Primary hyperparathyroidism causing hypercalcemia. Parathyroid nuclear scan because: Increased uptake in the left lower pole Sensipar 30 mg daily Increased iPTH 121. Vitamin D: 56.1. Low vitamin D 1, 25-dihydroxy at 19 Half-normal saline. 150 cc an hour. -Chronic gout Allopurinol 100 mg a day -Depression: Controlled Crease Lexapro to 20 mg a day -Essential hypertension, with e CKD Catapres 0.1 mg twice daily -GERD Prilosec 40 mg a day -Chronic medical debility. At baseline can only take 2 or 3 steps with assistance. -Primary osteoarthritis Tylenol as needed -Moderate protein calorie malnutrition from decreased oral intake Ensure 1 can 3 times daily -Probable acute on chronic kidney disease Follow I's and O's. Renal ultrasound. IV fluids. Nephrology following -Left hydronephrosis Being followed by urology Dr. Calixto Continue workup for hypercalcemia -Hypernatremia from free water deficit from decreased oral intake: Better IV fluids -Full code Will reach out to general surgery to see if anybody does parathyroid surgery here. Patient is somewhat increased risk for the same given her comorbidities. Past Medical History Past Medical History: Hypertension, Skin Disorder Additional Past Medical History / Comment(s): pt was diagnosed with cellulits 2 years ago. pt has HTN and is currently taking lisinopril and metoprolol for management. History of Any Multi-Drug Resistant Organisms: None Reported Past Surgical History: Section, Cholecystectomy, Joint Replacement, Tonsillectomy, Tubal Ligation Additional Past Surgical History / Comment(s): pt states she has had 3 c- sections, tubal ligation, knee replacement, and partial knee replacement removal. Past Anesthesia/Blood Transfusion Reactions: No Reported Reaction Past Psychological History: No Psychological Hx Reported Smoking Status: Never smoker Past Alcohol Use History: None Reported Past Drug Use History: None Reported
--- NOTE | 2023-07-29 15:01 | P.PN ---
Subjective Patient is seen for follow-up for acute kidney injury and hypercalcemia. Currently maintained on IV fluids. Serum calcium decreased to 11.8 today and serum creatinine Increased to 2.7. 24 hour urine output charted at 575 mL multiple family members present at bedside including son has been and [id number]. And discussed results of nuclear scan with them. It appears that patient has had poor mentation for few months now. Her calcium was noted to be high about a month ago during an admission at [facility]. no previous history of kidney diseases per family. I also discussed possible need for renal replacement therapy if renal function continues to deteriorate. Renal function may improve with treatment of hydronephrosis. Objective - Vital Signs Vital signs: Vital Signs Temp 98.1 F 07/29/23 09:00 Pulse 65 07/29/23 09:00 Resp 16 07/29/23 09:00 BP 144/66 07/29/23 09:00 Pulse Ox 97 07/29/23 09:00 FiO2 Intake & Output 07/28/23 07/29/23 07/29/23 18:59 06:59 18:59 Output Total 200 Balance -200 Weight 145.15 kg Output: Urine 200 Other: Voiding Method Indwelling Catheter Indwelling Catheter Indwelling Catheter - Exam patient is awake. mentation appears improved today. patient is answering questions appropriately. 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 - Labs CBC & Chem 7: 07/29/23 02:56 07/29/23 02:56 Labs: Abnormal Lab Results - Last 24 Hours (Table) 07/27/23 07/29/23 07/29/23 Range/Units 02:35 02:56 02:56 RBC 3.66 L (3.80-5.40) m/uL Hgb 10.1 L (11.4-16.0) gm/dL MCHC 29.1 L (31.0-37.0) g/dL RDW 16.4 H (11.5-15.5) % Lymphocytes # 0.9 L (1.0-4.8) k/uL Chloride 116 H (98-107) mmol/L BUN 48 H (7-17) mg/dL Creatinine 2.76 H (0.52-1.04) mg/dL Calcium 11.8 H (8.4-10.2) mg/dL Phosphorus 2.3 L (2.5-4.5) mg/dL AST 94 H (14-36) U/L ALT 73 H (4-34) U/L Alkaline Phosphatase 328 H (38-126) U/L Total Protein 5.3 L (6.3-8.2) g/dL Albumin 2.4 L (3.5-5.0) g/dL Vit D 1,25-Dihydroxy 19 L (20 - 79) pg/mL Assessment and Plan Assessment: 1. Acute kidney injury secondary to hypercalcemia, ATN currently nonoliguric. Patient is maintained on IV fluids. UA shows trace protein and moderate blood and WBCs 12. Computed tomography scan shows left ureteral calculus and left [id number] hydronephrosis. discussed possible need for renal replacement therapy if renal function continues to deteriorate. Recommend urology current intervention to possibly improve renal function. 2. Hypercalcemia associated with underlying primary hyperparathyroidism. PTH level is elevated at 121. 25-hydroxy vitamin D at 56 and 1, 25-hydroxy vitamin D level is low at 19. patient is maintained on Sensipar. Not a surgical candidate at this time. Sensipar should help to lower the calcium levels. 3. Hypernatremia associated with free water deficit 4. Left ureteral calculus with left [id number] hydronephrosis being followed by urology. Plan: Continue with IV fluids. Continue with Sensipar 30 mg daily. Recommend proceeding with urology Intervention to help improve renal function. repeat labs in a.m.
--- NOTE | 2023-07-30 06:59 | P.PN ---
Subjective Progress Note Date: 07/29/23 Principal diagnosis: Left ureteral calculus Patient is a 73-year-old white female being evaluated for hypercalcemia. She has a 6.4 mm obstructing left proximal ureteral calculus. She currently denies flank pain. Her serum PTH level is elevated, and the parathyroid scan suggests a parathyroid adenoma. Objective - Vital Signs Vital signs: Vital Signs Temp 98.4 F 07/29/23 19:44 Pulse 58 L 07/29/23 20:00 Resp 16 07/29/23 20:00 BP 168/68 07/29/23 19:44 Pulse Ox 97 07/29/23 19:44 FiO2 Intake & Output 07/29/23 07/29/23 07/30/23 06:59 18:59 06:59 Output Total 400 Balance -400 Output: Urine 400 Other: Voiding Method Indwelling Catheter Indwelling Catheter Indwelling Catheter - Constitutional General appearance: Present: average body habitus, cooperative, no acute distress - Psychiatric Psychiatric: Present: A&O x's 3 - Labs CBC & Chem 7: 07/29/23 02:56 07/29/23 02:56 Labs: Abnormal Lab Results - Last 24 Hours (Table) 07/29/23 07/29/23 Range/Units 02:56 02:56 RBC 3.66 L (3.80-5.40) m/uL Hgb 10.1 L (11.4-16.0) gm/dL MCHC 29.1 L (31.0-37.0) g/dL RDW 16.4 H (11.5-15.5) % Lymphocytes # 0.9 L (1.0-4.8) k/uL Chloride 116 H (98-107) mmol/L BUN 48 H (7-17) mg/dL Creatinine 2.76 H (0.52-1.04) mg/dL Calcium 11.8 H (8.4-10.2) mg/dL Phosphorus 2.3 L (2.5-4.5) mg/dL AST 94 H (14-36) U/L ALT 73 H (4-34) U/L Alkaline Phosphatase 328 H (38-126) U/L Total Protein 5.3 L (6.3-8.2) g/dL Albumin 2.4 L (3.5-5.0) g/dL Assessment and Plan (1) Ureterolithiasis Current Visit: Yes Status: Acute Code(s): N20.1 - CALCULUS OF URETER SNOMED Code(s): 44008584 (2) Hydronephrosis with renal and ureteral calculous obstruction Current Visit: Yes Status: Acute Code(s): N13.2 - HYDRONEPHROSIS WITH RENAL AND URETERAL CALCULOUS OBSTRUCTION SNOMED Code(s): 416048825 Plan: The patient likely has developed a ureteral calculus as a result of hypercalcemia. Her serum parathyroid hormone level is elevated. Her renal in sufficiency is likely multifactorial, but the obstructing ureteral calculus may be contributing to this. Given that the renal function has failed to improve, I have suggested to the patient and her family that she undergo cystoscopy with left ureteral stent insertion. I made very clear to them that this is a temporary measure, and that the stent may not remain in place for over 3 months. She will subsequently require a secondary procedure consisting of stent removal, left ureteroscopy with laser lithotripsy. I am hopeful that the stent can be placed in the next 1 to 2 days.
--- NOTE | 2023-07-30 14:14 | P.PN ---
Subjective Patient is seen for follow-up for acute kidney injury and hypercalcemia. Currently maintained on IV fluids. Serum calcium decreased to 11.8 yesterday and serum creatinine Increased to 2.7. Labs are pending from today. Patient is much more awake and communicating fairly well today. She is answering questions appropriately. Objective - Vital Signs Vital signs: Vital Signs Temp 97.6 F 07/30/23 09:09 Pulse 52 L 07/30/23 12:27 Resp 15 07/30/23 12:27 BP 156/70 07/30/23 12:27 Pulse Ox 98 07/30/23 12:27 FiO2 Intake & Output 07/29/23 07/30/23 07/30/23 18:59 06:59 18:59 Output Total 400 200 Balance -400 -200 Output: Urine 400 200 Other: Voiding Method Indwelling Catheter Indwelling Catheter Indwelling Catheter - Exam patient is awake. mentation much improved. patient is answering questions appropriately. Examination of the heart S1 and S2 Examination of the lungs bilateral breath sounds are heard Abdomen is soft obese nontender Examination of lower extremity shows no significant edema PHOTO CARTOGRAPHER exam shows patient is moving all 4 extremities. - Labs CBC & Chem 7: 07/29/23 02:56 07/29/23 02:56 Assessment and Plan Assessment: 1. Acute kidney injury secondary to hypercalcemia, ATN currently nonoliguric. Patient is maintained on IV fluids. UA shows trace protein and moderate blood and WBCs 12. Computed tomography scan shows left ureteral calculus and left [id number] hydronephrosis. discussed possible need for renal replacement therapy if renal function continues to deteriorate. Recommend urological intervention to possibly improve renal function. 2. Hypercalcemia associated with underlying primary hyperparathyroidism. PTH level is elevated at 121. 25-hydroxy vitamin D at 56 and 1, 25-hydroxy vitamin D level is low at 19. patient is maintained on Sensipar. Not a surgical candidate at this time. Sensipar should help to lower the calcium levels. 3. Hypernatremia associated with free water deficit 4. Left ureteral calculus with left [id number] hydronephrosis being followed by urology.
--- NOTE | 2023-07-30 14:26 | P.PN ---
Progress Note - Text Progress Note Date: 07/30/23 Chief Complaint: Weak and tired This is a pleasant 73-year-old patient currently resident of [facility]. In [place]. Patient's at the bedside. At the baseline patient not able to walk. Needs full assist. May take couple of steps. For last 6 days patient is barely been eating. Having nausea vomiting. Has felt warm. Tired rundown. Was found to have elevated sodium and increase calcium in the ER. Started on IV fluids. CT scan at [facility] showed mild to moderate left hydronephrosis with a 6.4 mm left proximal ureteral calculus. No abdominal pain. July 28, 2023: Remains on half saline at 150 cc an hour. Some decrease in sodium and slight decrease in creatinine. iPTH come back elevated. Eating about 25%. Tired. Clonidine was added yesterday for blood pressure control. Patient seems to have primary hyperparathyroidism. Though has normal vitamin D level. Patient to be started on Sensipar. 30 mg twice daily. There is no renal dose adjustment. July 28: Poor oral intake. IV fluids at 75 cc an hour. Parathyroid nuclear scan showed increased focal uptake along the inferior left thyroid bed region. Suspicious for parathyroid adenoma. Spoke to and patient's sister at the bedside. Patient is at high risk for surgery. Will follow further. Decreased oral intake. On Sensipar. Given patient's poor intake for last few days decreased moderate protein calorie malnutrition. Some reduction in calcium July 29: Patient looking better. Smiling actually. Patient due for cystoscopy and possible left-sided J stent. This afternoon. Spoke to the piano case maker Stacie. Patient be able to return to [facility] on Wednesday. Discussed with Dr. Cartwright from nephrology. Given that calcium is better parathyroid surgery not indicated -. If needed be Dr. Champion test parathyroid surgery. Continue with current dose of cicalnet. Active Medications Acetaminophen (Acetaminophen Tab 325 Mg Tab) 650 mg PO Q6HR PRN PRN Reason: Mild Pain or Fever > 100.5 Allopurinol (Allopurinol 100 Mg Tab) 100 mg PO DAILY YAO Last Admin: 07/30/23 09:12 Dose: 100 mg Alprazolam (Alprazolam 0.5 Mg Tab) 0.5 mg PO Q12H PRN PRN Reason: Anxiety Cinacalcet (Cinacalcet 30 Mg Tab) 30 mg PO DAILY [facility] Last Admin: 07/30/23 09:12 Dose: 30 mg Clonidine (Clonidine Hcl 0.1 Mg Tab) 0.1 mg PO BID [facility] Last Admin: 07/30/23 09:11 Dose: 0.1 mg Enoxaparin Sodium (Enoxaparin 30 Mg/0.3 Ml Syringe) 30 mg SQ DAILY [facility] Last Admin: 07/30/23 09:12 Dose: 30 mg Escitalopram Oxalate (Escitalopram 10 Mg Tab) 10 mg PO DAILY@0700 [facility] Last Admin: 07/30/23 05:52 Dose: Not Given Sodium Chloride (Saline 0.45%) 1,000 mls @ 75 mls/hr IV .[id number] [facility] Last Admin: 07/29/23 19:48 Dose: 75 mls/hr Naloxone HCl (Naloxone 0.4 Mg/Ml 1 Ml Vial) 0.2 mg IV Q2M PRN PRN Reason: Opioid Reversal Ondansetron HCl (Ondansetron 4 Mg/2 Ml Vial) 4 mg IVP Q8HR PRN PRN Reason: Nausea And Vomiting Last Admin: 07/28/23 03:17 Dose: 4 mg Oxycodone HCl (Oxycodone Hcl 5 Mg Tab) 5 mg PO Q3H PRN PRN Reason: Severe Pain (Scale 7 to 10) Last Admin: 07/28/23 03:17 Dose: 5 mg Pantoprazole Sodium (Pantoprazole 40 Mg Tablet) 40 mg PO DAILY@0700 [facility] Last Admin: 07/30/23 05:52 Dose: Not Given Simethicone (Simethicone 80 Mg Chewable) 120 mg PO TID [facility] Last Admin: 07/30/23 09:13 Dose: Not Given Social history: No smoking. No alcohol. Currently resident of [facility] Physical examination: VITAL SIGNS: 97.6, 52, 15, 156/70, 98% room air GENERAL: Laying in bed, smiling EYES: Pupils equal. Conjunctiva ozzy l. HEENT: External appearance of nose and ears normal, oral cavity grossly dry mucous membrane l. NECK: JVD not raised; masses not palpable. HEART: First and second heart sounds are normal; no edema. LUNGS: Respiratory rate normal; clear to auscultation. ABDOMEN: Soft, nontender, liver spleen not palpable, no masses palpable. PSYCH: Mood affect much better. Smiling. Attentive to answer simple questions MUSCULOSKELETAL:No Clubbing/cyanosis;muscles-grossly intact. OA Dermatological: Chronic venous changes lower extremity INVESTIGATIONS, reviewed in the clinical context: July 28: White count 7.8 hemoglobin 10.1 sodium 143 potassium 4 BUN 48 creatinine 2.76 phosphorus 2.3 albumin 2.4. Calcium 11.8 Renal ultrasound [July 27, 2023] mild left-sided hydronephrosis. Dominant 5.4 elevated left kidney cyst. July 27: Potassium 3.9 sodium 145 BUN 51 creatinine 2.38 calcium 12.9 AST 125 ALT 81 albumin 2.8. Phosphorus 2.7 Vitamin D 25-hydroxy: 56.1 PTH intact: 121. Vitamin D 1, 25-dihydroxy low at 19 July 27, 2023: White count 9.8 hemoglobin 10.9 platelets 342 sodium 149 potassium 4.2 chloride 118 BUN 54 creatinine 2.45 calcium 13.6 AST 111 ALT 54 Troponin I 0.043, 0.038, 0.036 July 26, 2023: White count 9.5 hemoglobin 11.9 platelets 321 sodium 140 potassium 4.3 BUN 54 creatinine 2.48 calcium 13.9 ionized calcium 7.9 phosphorus 3.1 albumin 2.7 EKG tracing personally reviewed by me-normal sinus rhythm. Some ST-T wave changes. Assessment plan: -Acute metabolic encephalopathy, from severe electrolyte abnormality: Improvement -Primary hyperparathyroidism causing hypercalcemia. Parathyroid nuclear scan because: Increased uptake in the left lower pole Sensipar 30 mg daily Increased iPTH 121. Vitamin D: 56.1. Low vitamin D 1, 25-dihydroxy at 19 Half-normal saline. 75 cc an hour. Currently surgery not indicated., If needs to be Dr Champion does parathyroid surgery. -Chronic gout Allopurinol 100 mg a day -Depression: Controlled Crease Lexapro to 20 mg a day -Essential hypertension, with e CKD Catapres 0.1 mg twice daily -GERD Prilosec 40 mg a day -Chronic medical debility. At baseline can only take 2 or 3 steps with assistance. -Primary osteoarthritis Tylenol as needed -Moderate protein calorie malnutrition from decreased oral intake Ensure 1 can 3 times daily -Probable acute on chronic kidney disease Follow I's and O's. Renal ultrasound. IV fluids. Nephrology following -Left hydronephrosis Being followed by urology Dr. Calixto-due for probable stent today. Continue workup for hypercalcemia -Hypernatremia from free water deficit from decreased oral intake: Resolved IV fluids -Full code Pending cystoscopy SANILAC/possible left ureteral stent today. Continue with current medications. Surgery at this point not indicated as discussed with nephrology. Plan for discharge to ECF on Wednesday if everything is unremarkable. Past Medical History Past Medical History: Hypertension, Skin Disorder Additional Past Medical History / Comment(s): pt was diagnosed with cellulits 2 years ago. pt has HTN and is currently taking lisinopril and metoprolol for management. History of Any Multi-Drug Resistant Organisms: None Reported Past Surgical History: Section, Cholecystectomy, Joint Replacement, Tonsillectomy, Tubal Ligation Additional Past Surgical History / Comment(s): pt states she has had 3 c- sections, tubal ligation, knee replacement, and partial knee replacement removal. Past Anesthesia/Blood Transfusion Reactions: No Reported Reaction Past Psychological History: No Psychological Hx Reported Smoking Status: Never smoker Past Alcohol Use History: None Reported Past Drug Use History: None Reported
[2023-07-30] MEDS: LACTATED RINGERS 1,000 ML IV ONE (15:23)
[2023-07-30] MEDS: DEXAMETHASONE SOD PHOSPHATE 4 MG/ML 1 ML VIAL IVP STA (15:25)
[2023-07-30] MEDS ORDERED: ROCURONIUM 10 MG/ML (5 ML VIAL) IV ONE (15:38)
[2023-07-30] MEDS ORDERED: LIDOCAINE 1% INJ 10MG/ML (20 ML MDV) ONE (15:38)
[2023-07-30] MEDS ORDERED: ceFAZolin 1 GM/50 ML BAG (PMX) ONE (15:38)
[2023-07-30] MEDS ORDERED: PROPOFOL 10 MG/ML 20 ML VIAL IV ONE (15:38)
[2023-07-30] MEDS ORDERED: SUGAMMADEX SODIUM 200 MG/2 ML SDV IV ONE (15:38)
[2023-07-30] MEDS ORDERED: fentaNYL (PF) 50 MCG/ML 2 ML AMP ONE (15:38)
[2023-07-30] MEDS: SODIUM CHLORIDE 0.9% 50 ML with ceFAZolin 2,000 MG IV ONE (16:00)
[2023-07-30] MEDS: IOHEXOL 350 MG/ML 100 ML in EMPTY BAG 1 BAG IRRIGATION ONE (16:03)
--- NOTE | 2023-07-30 16:27 | P.OP ---
Date of Procedure: 07/30/23 Preoperative Diagnosis: Left hydronephrosis secondary to left ureteral calculus Postoperative Diagnosis: Same Procedure(s) Performed: Cystoscopy, left retrograde pyelogram, left ureteral stent insertion Anesthesia: KELLIA Surgeon: Wilbert Calixto Estimated Blood Loss (ml): 0 IV fluids (ml): 100 Pathology: none sent Condition: stable Disposition: PACU Indications for Procedure: The patient is a 73-year-old white female admitted with weakness. She has been found to have hypercalcemia due to hyperparathyroidism. She has left hydronephrosis due to a 6 mm left proximal ureteral calculus. She now comes for insertion of left ureteral stent. Operative Findings: Obstructing left proximal ureteral calculus, which refluxed back into the kidney. A left ureteral stent was successfully placed. Description of Procedure: The patient was taken to the operating room and placed in the dorsolithotomy position, with legs supported in Andrew stirrups. The external genitalia was prepped and draped sterilely. The 30 lens was used to introduce the 22 Gambian Stortz cystoscopic sheath through the urethra and into the bladder under direct vision. The bladder was examined in its entirety. Both ureteral orifices were of normal anatomic location and configuration. No tumors or foreign bodies were seen. There was evidence of catheter cystitis. Using a 10 Gambian cone-tip catheter, a left retrograde pyelogram was performed. The ureter was normal in course and caliber. A partially obstructing left proximal ureteral calculus was seen. This refluxed up into the left renal pelvis. Next, A 0.035 inch Glidewire was passed through the cystoscope. The left ureteral orifice was cannulated, and the Glidewire was slowly advanced up to the renal pelvis. After placing the wire, cloudy urine with debris drained from the left ureter. A 26 cm, 6-Gambian double-J ureteral stent was placed over the wire. Proper stent positioning was verified fluoroscopically and endoscopically. No additional drainage through the stent was noted. The appearance of the urine was not suspicious for infection. Nonetheless, with the beak of the cystoscope immediately adjacent to the distal end of the stent, urine was collected and sent for culture and sensitivity. The cystoscope was removed, and a 16 Gambian Lay catheter was placed. The patient tolerated the procedure well and was taken to the recovery room in stable condition.
--- NOTE | 2023-07-30 16:45 | FL ---
EXAMINATION TYPE: FL guidance operating room Intraoperative/procedural fluoroscopic services were pro vided. Total fluoroscopy time is 14.9 seconds with a total of 4 submitted images to PACS. Please see the operative/procedural note for further details. DAP: [id number] [id number]
[2023-07-30] MEDS: amLODIPine 10 MG TAB PO SCH (23:00)
[2023-07-31 08:22] LABS: ALT 47 U/L (4-34); AST 50 U/L (14-36); African American GFR (CKD) 30 (>60 ml/min/1.73 sqM); Albumin 2.6 g/dL (3.5-5.0); Alkaline Phosphatase 297 U/L (38-126); Anion Gap 6 mmol/L; Blood Urea Nitrogen 36 mg/dL (7-17); Carbon Dioxide 20 mmol/L (22-30); Chloride 113 mmol/L (98-107); Glucose 102 mg/dL (74-99); Non-African American GFR(CKD) 26 (>60 ml/min/1.73 sqM); Potassium 4.2 mmol/L (3.5-5.1); Sodium 139 mmol/L (137-145); Total Bilirubin 0.5 mg/dL (0.2-1.3); Total Protein 5.4 g/dL (6.3-8.2)
--- NOTE | 2023-07-31 11:54 | P.PN ---
Subjective Progress Note Date: 07/31/23 This is Beto Mueller NP, I'm dictating on behalf of Dr. Saucedo's H&P and A&P. Patient was interviewed and examined. Patient is a pleasant 73-year-old female who presented the hospital symptomatic hypercalcemia. We had originally signed off on the patient due to stabilization and flat troponins, however we were reconsulted yesterday due to bradycardia. Patient has had an episode of heart rate in the 30s. Medications are reviewed with no obvious cause. Laboratory values are reviewed with no obvious cause. Patient's vital signs otherwise appear stable. GENERAL: Well-appearing, well-nourished and in no acute distress. NECK: Supple without JVD or thyromegaly. LUNGS: Breath sounds clear to auscultation bilaterally. Respiration equal and unlabored. No wheezes, rales or rhonchi. HEART: Regular rate and rhythm without murmurs, rubs or gallops. S1 and S2 heard. EXTREMITIES: Normal range of motion, no edema. No clubbing or cyanosis. Peripheral pulses intact and strong. VITALS: Temp 98.3, pulse 52, respirations 19, blood pressure 158/86, O2 saturation 98% on room air TELEMETRY: Sinus bradycardia LABS: Sodium 139, potassium 4.2, BUN 36, creatinine 1.91 IMPRESSION: 1. Bradycardia of unknown etiology 2. Hypercalcemia, currently corrected 3. Elevated troponins with flat trend PLAN: Continue to monitor heart rate on telemetry. From telemetry, heart rates have improved with no further dips into the 30s since yesterday. Further recommendations based on patient's clinical course. Objective - Vital Signs Vital signs: Vital Signs Temp 98.3 F 07/31/23 03:52 Pulse 52 L 07/31/23 03:52 Resp 19 07/31/23 03:52 BP 158/86 07/31/23 03:52 Pulse Ox 98 07/31/23 03:52 FiO2 Intake & Output 07/30/23 07/31/23 07/31/23 18:59 06:59 18:59 Intake Total 551 Output Total 0 Balance 551 Intake: IV 551 Output: Estimated Blood Loss 0 Other: Voiding Method Indwelling Catheter Indwelling Catheter - Labs CBC & Chem 7: 07/29/23 02:56 07/31/23 07:02 Labs: Abnormal Lab Results - Last 24 Hours (Table) 07/31/23 Range/Units 07:02 Chloride 113 H (98-107) mmol/L Carbon Dioxide 20 L (22-30) mmol/L BUN 36 H (7-17) mg/dL Creatinine 1.91 H (0.52-1.04) mg/dL Glucose 102 H (74-99) mg/dL AST 50 H (14-36) U/L ALT 47 H (4-34) U/L Alkaline Phosphatase 297 H (38-126) U/L Total Protein 5.4 L (6.3-8.2) g/dL Albumin 2.6 L (3.5-5.0) g/dL
--- NOTE | 2023-07-31 11:58 | P.PN ---
Subjective Progress Note Date: 07/31/23 Principal diagnosis: Left ureteral calculus Patient is a 73-year-old white female being evaluated for hypercalcemia. She has a 6.4 mm obstructing left proximal ureteral calculus and underwent left ureteral stent insertion on 07/30/2023. She currently denies flank pain. Her serum calcium level is now normal, and she is much more alert. Objective - Vital Signs Vital signs: Vital Signs Temp 98.3 F 07/31/23 03:52 Pulse 52 L 07/31/23 03:52 Resp 19 07/31/23 03:52 BP 158/86 07/31/23 03:52 Pulse Ox 98 07/31/23 03:52 FiO2 Intake & Output 07/30/23 07/31/23 07/31/23 18:59 06:59 18:59 Intake Total 551 Output Total 0 Balance 551 Intake: IV 551 Output: Estimated Blood Loss 0 Other: Voiding Method Indwelling Catheter Indwelling Catheter - Constitutional General appearance: Present: average body habitus, cooperative, no acute distress - Psychiatric Psychiatric: Present: A&O x's 3 - Labs CBC & Chem 7: 07/29/23 02:56 07/31/23 07:02 Assessment and Plan (1) Ureterolithiasis Current Visit: Yes Status: Acute Code(s): N20.1 - CALCULUS OF URETER SNOMED Code(s): 03431083 (2) Hydronephrosis with renal and ureteral calculous obstruction Current Visit: Yes Status: Acute Code(s): N13.2 - HYDRONEPHROSIS WITH RENAL AND URETERAL CALCULOUS OBSTRUCTION SNOMED Code(s): 731412592 Plan: The patient's left ureteral obstruction has been relieved with ureteral stent insertion. She is likely to be transferred back to her ECF on August 02, 2023. Arrangements will be made for her to undergo cystoscopy, left ureteral stent removal, left ureteroscopy with laser lithotripsy and possible stone basketing later this month.
--- NOTE | 2023-07-31 12:57 | P.PN ---
Subjective Patient is seen for follow-up for acute kidney injury and hypercalcemia. Currently maintained on IV fluids. status post cystoscopy and left ureteral stent placement on 07/30/2023. Serum creatinine has improved to 1.9 today. no significant complaints. Objective - Vital Signs Vital signs: Vital Signs Temp 98.3 F 07/31/23 03:52 Pulse 52 L 07/31/23 03:52 Resp 19 07/31/23 03:52 BP 158/86 07/31/23 03:52 Pulse Ox 98 07/31/23 03:52 FiO2 Intake & Output 07/30/23 07/31/23 07/31/23 18:59 06:59 18:59 Intake Total 551 118 Output Total 0 Balance 551 118 Intake: IV 551 Oral 118 Output: Estimated Blood Loss 0 Other: Voiding Method Indwelling Catheter Indwelling Catheter - Exam patient is awake. mentation much improved. patient is answering questions appropriately. Examination of the heart S1 and S2 Examination of the lungs bilateral breath sounds are heard Abdomen is soft obese nontender Examination of lower extremity shows no significant edema TONE REGULATOR exam shows patient is moving all 4 extremities. - Labs CBC & Chem 7: 07/29/23 02:56 07/31/23 07:02 Labs: Abnormal Lab Results - Last 24 Hours (Table) 07/31/23 Range/Units 07:02 Chloride 113 H (98-107) mmol/L Carbon Dioxide 20 L (22-30) mmol/L BUN 36 H (7-17) mg/dL Creatinine 1.91 H (0.52-1.04) mg/dL Glucose 102 H (74-99) mg/dL AST 50 H (14-36) U/L ALT 47 H (4-34) U/L Alkaline Phosphatase 297 H (38-126) U/L Total Protein 5.4 L (6.3-8.2) g/dL Albumin 2.6 L (3.5-5.0) g/dL Assessment and Plan Assessment: 1. Acute kidney injury secondary to hypercalcemia, ATN currently nonoliguric. Patient is maintained on IV fluids. UA shows trace protein and moderate blood and WBCs 12. Computed tomography scan shows left ureteral calculus and left tadd-gj-pygxgxgo hydronephrosis. Discussed possible need for renal replacement therapy if renal function continues to deteriorate. Renal function has improved post left ureteral stent placement 2. Hypercalcemia associated with underlying primary hyperparathyroidism. PTH level is elevated at 121. 25-hydroxy vitamin D at 56 and 1, 25-hydroxy vitamin D level is low at 19. patient is maintained on Sensipar. Not a surgical candidate at this time. Sensipar should help to lower the calcium levels. 3. Hypernatremia associated with free water deficit 4. Left ureteral calculus with left [id number]-[id number] hydronephrosis ,status post left ureteral stent placement on 07/30/2023 Plan: Continue with IV fluids. decrease Sensipar to 3 times a week repeat labs in a.m.
[2023-07-31] MEDS ORDERED: ZINC OXIDE PASTE (Z-GUARD) 1 APPLIC TOPICAL PRN (16:57)
--- NOTE | 2023-07-31 17:53 | P.PN ---
Subjective Progress Note Date: 07/31/23 This is a pleasant 73-year-old patient currently resident of [facility]. In [place]. Patient's at the bedside. At the baseline patient not able to walk. Needs full assist. May take couple of steps. For last 6 days patient is barely been eating. Having nausea vomiting. Has felt warm. Tired rundown. Was found to have elevated sodium and increase calcium in the ER. Started on IV fluids. CT scan at [facility] showed mild to moderate left hydronephrosis with a 6.4 mm left proximal ureteral calculus. No abdominal pain. July 28, 2023: Remains on half saline at 150 cc an hour. Some decrease in sodium and slight decrease in creatinine. iPTH come back elevated. Eating about 25%. Tired. Clonidine was added yesterday for blood pressure control. Patient seems to have primary hyperparathyroidism. Though has normal vitamin D level. Patient to be started on Sensipar. 30 mg twice daily. There is no renal dose adjustment. July 28: Poor oral intake. IV fluids at 75 cc an hour. Parathyroid nuclear scan showed increased focal uptake along the inferior left thyroid bed region. Suspicious for parathyroid adenoma. Spoke to and patient's sister at the bedside. Patient is at high risk for surgery. Will follow further. Decreased oral intake. On Sensipar. Given patient's poor intake for last few days decreased moderate protein calorie malnutrition. Some reduction in calcium July 29: Patient looking better. Smiling actually. Patient due for cystoscopy and poss ible left-sided J stent. This afternoon. Spoke to the caser shoe parts Stacie. Patient be able to return to [facility] on Wednesday. Discussed with Dr. Cartwright from nephrology. Given that calcium is better parathyroid surgery not indicated -. If needed be Dr. Champion test parathyroid surgery. Continue with current dose of cicalnet. 07/31/2023 Patient is seen and evaluated in follow-up today a little more awake today per at the bedside. Patient continues to be extremely weak and per has been living there for the last 3 months. Patient being followed by multiple medical consultation is status post cystoscopy with left ureteral stent placement. Patient also noted to have significant left hydronephrosis secondary to ureteral calculus obstruction. Calcium has improved nephrology following closely recommend follow-up labs. Plan will be for patient to return to [facility] once stabilized and discharged. Patient is afebrile with no reports of chest pain or shortness of breath. Patient reports able to eat a little more but not much of an appetite. Review of systems: Constitutional: reports of fatigue but no worsening, no fever, or chills Cardiovascular: No reports of chest pain or palpitations Respiratory: No reports of shortness of breath or cough GI: No reports of nausea, vomiting, or diarrhea, reports not much of an appetite : No reports of dysuria or retention Neurovascular: reports of generalized weakness All medications have been reviewed Physical examination: GENERAL: This is a 73-year-old female who is semi-sitting up in the bed, awake, alert and oriented x 3, well-developed, ill-appearing, morbidly obese EYES: Pupils equal. Conjunctiva normal. HEENT: External appearance of nose and ears normal, oral cavity grossly dry mucous membrane NECK: JVD not raised; masses not palpable. HEART: S1, S2 are muffled LUNGS: Diminished breath sounds bilaterally otherwise clear to auscultation with no wheezing or rhonchi noted. Respiratory rate normal ABDOMEN: Soft, obese, nontender, normal bowel sounds noted, no masses palpable. PSYCH: Mood affect much better. Smiling. Attentive to answer simple questions MUSCULOSKELETAL: No Clubbing/cyanosis;muscles-grossly intact. OA Dermatological: Chronic venous changes lower extremity Assessment plan: -Acute metabolic encephalopathy, from severe electrolyte abnormality: Improvement -Primary hyperparathyroidism causing hypercalcemia., Status post parathyroid nuclear scan with increased uptake in the left lower pole. Increased iPTH 121. Vitamin D: 56.1. Low vitamin D 1, 25-dihydroxy at 19, surgery evaluated with no plans of surgical intervention at this time -Chronic gout continue allopurinol -Depression: Continue current medication regimen, increase Lexapro to 20 mg racquel y -Essential hypertension, with history of CKD -GERD, continue PPI -Chronic medical debility. At baseline can only take 2 or 3 steps with assistance., Has been residing at [facility] for 3 months per -Primary osteoarthritis -Moderate protein calorie malnutrition from decreased oral intake, continue to encourage oral intake and Ensure supplements -Probable acute on chronic kidney disease -Left hydronephrosis, worsening, status post cystoscopy with left ureteral stent placement. Patient to follow-up with urology outpatient for lithotripsy and basket retrieval with stent removal discussion -Hypernatremia from free water deficit from decreased oral intake: Resolved -GI prophylaxis -DVT prophylaxis -Full code Plan: Patient is status post cystoscopy with left ureteral stent placement with urology recommending outpatient follow-up for removal and basket retrieval and lithotripsy Calcium improved and nephrology following recommending outpatient follow-up Will repeat labs Encouraged oral intake and recommend supervision with meals and aspiration precautions Case management following and patient will be returning to [facility] Patient was evaluated by surgery with no plans of surgical intervention at this time. Follow-up with repeat labs outpatient Possible discharge planning on Wednesday The impression and plan of care has been dictated by Kizzy Cartagena, Nurse Practitioner as directed. Dr. Troy MD I have performed a history and examination and MDM of this patient, discussed the same with the dictator, and agree with the dictator's assessment and plan as written ,documented as a scribe. Based on total visit time, I have performed more than 50% of the visit. Follow-up Objective - Vital Signs Vital signs: Vital Signs Temp 98.3 F 07/31/23 03:52 Pulse 52 L 07/31/23 03:52 Resp 19 07/31/23 03:52 BP 158/86 07/31/23 03:52 Pulse Ox 98 07/31/23 03:52 FiO2 Intake & Output 07/30/23 07/31/23 07/31/23 18:59 06:59 18:59 Intake Total 551 Output Total 0 Balance 551 Intake: IV 551 Output: Estimated Blood Loss 0 Other: Voiding Method Indwelling Catheter Indwelling Catheter - Labs CBC & Chem 7: 07/29/23 02:56 07/31/23 07:02 Labs: Abnormal Lab Results - Last 24 Hours (Table) 07/31/23 Range/Units 07:02 Chloride 113 H (98-107) mmol/L Carbon Dioxide 20 L (22-30) mmol/L BUN 36 H (7-17) mg/dL Creatinine 1.91 H (0.52-1.04) mg/dL Glucose 102 H (74-99) mg/dL AST 50 H (14-36) U/L ALT 47 H (4-34) U/L Alkaline Phosphatase 297 H (38-126) U/L Total Protein 5.4 L (6.3-8.2) g/dL Albumin 2.6 L (3.5-5.0) g/dL
[2023-07-31] MEDS: ALPRAZolam 0.5 MG TAB PO PRN (21:38)
[2023-08-01 07:48] LABS: Anisocytosis Slight; Basophils % (A) 1 %; Eosinophils # (A) 0.2 k/uL (0-0.7); Eosinophils % (A) 3 %; HGB 9.8 gm/dL (11.4-16.0); Hypochromasia Moderate; Lymphocytes # (A) 1.4 k/uL (1.0-4.8); Lymphocytes % (A) 15 %; MCH 27.6 pg (25.0-35.0); MCHC 29.7 g/dL (31.0-37.0); Monocytes # (A) 0.6 k/uL (0-1.0); Monocytes % (A) 7 %; Neutrophils # (A) 6.6 k/uL (1.3-7.7); Neutrophils % (A) 74 %; Platelet Count 238 k/uL (150-450); RBC 3.55 m/uL (3.80-5.40); RDW 16.3 % (11.5-15.5)
[2023-08-01 07:49] LABS: ALT 29 U/L (4-34); AST 37 U/L (14-36); African American GFR (CKD) 36 (>60 ml/min/1.73 sqM); Albumin 2.2 g/dL (3.5-5.0); Alkaline Phosphatase 227 U/L (38-126); Anion Gap 4 mmol/L; Blood Urea Nitrogen 29 mg/dL (7-17); Calcium 9.5 mg/dL (8.4-10.2); Carbon Dioxide 20 mmol/L (22-30); Chloride 114 mmol/L (98-107); Glucose 74 mg/dL (74-99); Magnesium 1.7 mg/dL (1.6-2.3); Non-African American GFR(CKD) 31 (>60 ml/min/1.73 sqM); Potassium 3.4 mmol/L (3.5-5.1); Sodium 138 mmol/L (137-145); Total Bilirubin 0.5 mg/dL (0.2-1.3); Total Protein 4.9 g/dL (6.3-8.2)
[2023-08-01] MEDS: POTASSIUM CHLORIDE ER 20 MEQ TAB.ER PO STA (09:55)
[2023-08-01] MEDS: POTASSIUM CHLORIDE ER 20 MEQ TAB.ER PO ONE (11:07)
--- NOTE | 2023-08-01 11:31 | P.PN ---
Subjective Progress Note Date: 08/01/23 This is Beto Mueller NP, I'm dictating on behalf of Dr. Saucedo's H&P and A&P. Patient was interviewed and examined. Patient is a pleasant 73-year-old female who presented to the hospital with s ymptomatic hypercalcemia and low heart rates. Patient reports that she is feeling okay today. It appears her heart rate continues to slowly improve day by day. She is currently running in the high 50s to low 60s today. Patient is denying chest pain, heart palpitations, and shortness of breath. GENERAL: Well-appearing, well-nourished and in no acute distress. NECK: Supple without JVD or thyromegaly. LUNGS: Breath sounds clear to auscultation bilaterally. Respiration equal and unlabored. No wheezes, rales or rhonchi. HEART: Regular rate and rhythm without murmurs, rubs or gallops. S1 and S2 heard. EXTREMITIES: Normal range of motion, no edema. No clubbing or cyanosis. Peripheral pulses intact and strong. VITALS: Temp 98.2, pulse 65, respirations 16, blood pressure 96/56, O2 saturation 97% on room air TELEMETRY: Sinus bradycardia LABS: White count 9.0, hemoglobin 9.8, platelets 238, sodium 138, potassium 3.4, BUN 29, creatinine 1.65, magnesium 1.7 IMPRESSION: 1. Bradycardia of unknown etiology 2. Hypercalcemia, currently corrected 3. Elevated troponins with flat trend PLAN: Continue to monitor heart rate on telemetry. Continue current medications. Patient's heart rate continues to improve. Further recommendations based on patient's clinical course. Objective - Vital Signs Vital signs: Vital Signs Temp 98.2 F 08/01/23 08:25 Pulse 65 08/01/23 08:25 Resp 16 08/01/23 08:25 BP 96/56 08/01/23 08:25 Pulse Ox 97 08/01/23 08:25 FiO2 Intake & Output 07/31/23 08/01/23 08/01/23 18:59 06:59 18:59 Intake Total 236 118 Output Total 550 350 Balance -314 -350 118 Intake: Oral 236 118 Output: Urine 550 350 Other: Voiding Method Indwelling Catheter Indwelling Catheter Indwelling Catheter - Labs CBC & Chem 7: 08/01/23 06:37 08/01/23 06:37 Labs: Abnormal Lab Results - Last 24 Hours (Table) 07/29/23 08/01/23 08/01/23 Range/Units 19:31 06:37 06:37 RBC 3.55 L (3.80-5.40) m/uL Hgb 9.8 L (11.4-16.0) gm/dL Hct 33.0 L (34.0-46.0) % MCHC 29.7 L (31.0-37.0) g/dL RDW 16.3 H (11.5-15.5) % Potassium 3.4 L (3.5-5.1) mmol/L Chloride 114 H (98-107) mmol/L Carbon Dioxide 20 L (22-30) mmol/L BUN 29 H (7-17) mg/dL Creatinine 1.65 H (0.52-1.04) mg/dL AST 37 H (14-36) U/L Alkaline Phosphatase 227 H (38-126) U/L Total Protein 4.9 L (6.3-8.2) g/dL Albumin 2.2 L (3.5-5.0) g/dL Ur Calcium 24 Hr 72.0 L (100.0-300.0) mg/24Hr Microbiology - Last 24 Hours (Table) 07/30/23 16:08 Urine Culture - Final Urine,Voided
--- NOTE | 2023-08-01 16:41 | XR ---
EXAMINATION TYPE: XR abdomen 1V DATE OF EXAM: 08/01/2023 4:17 PM CLINICAL INDICATION:Female, 73 years old with history of diarrhea; [facility] COMPARISON: 07/19/2023 TECHNIQUE: One radiographic view of the abdomen was obtained. FINDINGS: Left ureteral stent with inferior and superior pigtails projecting in appropriate position. Right upper quadrant cholecystectomy clips. Right femur fixation hardware appears intact. The bowel gas pattern is nonspecific without dilated loops of small or large bowel. There is no evidence for or ganomegaly or pneumoperitoneum. The osseous structures are intact. No abnormal calcifications are p resent. Fecal material and gas are demonstrated throughout the colon and rectum. Multilevel degenera tion changes throughout the spine. Heart is enlarged for size. IMPRESSION: Nonspecific bowel gas pattern without radiographic evidence for acute process.
--- NOTE | 2023-08-01 17:08 | P.PN ---
Subjective Patient is seen for follow-up for acute kidney injury and hypercalcemia. Currently maintained on IV fluids. status post cystoscopy and left ureteral stent placement on 07/30/2023. Serum creatinine has improved to 1.6 today. no significant complaints. Objective - Vital Signs Vital signs: Vital Signs Temp 98.1 F 08/01/23 16:35 Pulse 62 08/01/23 16:35 Resp 16 08/01/23 16:35 BP 146/78 08/01/23 16:35 Pulse Ox 99 08/01/23 16:35 FiO2 Intake & Output 07/31/23 08/01/23 08/01/23 18:59 06:59 18:59 Intake Total 236 236 Output Total 550 350 400 Balance -314 -350 -164 Intake: Oral 236 236 Output: Urine 550 350 400 Other: Voiding Method Indwelling Catheter Indwelling Catheter Indwelling Catheter - Exam patient is awake. mentation has improved. patient is answering questions appropriately. Examination of the heart S1 and S2 Examination of the lungs bilateral breath sounds are heard Abdomen is soft obese nontender Examination of lower extremity shows no significant edema [employer]LECT[employer] G[employer]ING [employer]OR exam shows patient is moving all 4 extremities. - Labs CBC & Chem 7: 08/01/23 06:37 08/01/23 06:37 Labs: Abnormal Lab Results - Last 24 Hours (Table) 07/29/23 08/01/23 08/01/23 Range/Units 19:31 06:37 06:37 RBC 3.55 L (3.80-5.40) m/uL Hgb 9.8 L (11.4-16.0) gm/dL Hct 33.0 L (34.0-46.0) % MCHC 29.7 L (31.0-37.0) g/dL RDW 16.3 H (11.5-15.5) % Potassium 3.4 L (3.5-5.1) mmol/L Chloride 114 H (98-107) mmol/L Carbon Dioxide 20 L (22-30) mmol/L BUN 29 H (7-17) mg/dL Creatinine 1.65 H (0.52-1.04) mg/dL AST 37 H (14-36) U/L Alkaline Phosphatase 227 H (38-126) U/L Total Protein 4.9 L (6.3-8.2) g/dL Albumin 2.2 L (3.5-5.0) g/dL Ur Calcium 24 Hr 72.0 L (100.0-300.0) mg/24Hr Microbiology - Last 24 Hours (Table) 07/30/23 16:08 Urine Culture - Final Urine,Voided Assessment and Plan Assessment: 1. Acute kidney injury secondary to hypercalcemia, ATN currently nonoliguric. Patient is maintained on IV fluids. UA shows trace protein and moderate blood and WBCs 12. Computed tomography scan shows left ureteral calculus and left [id number] hydronephrosis. Renal function has improved post left ureteral stent placement 2. Hypercalcemia associated with underlying primary hyperparathyroidism. PTH level is elevated at 121. 25-hydroxy vitamin D at 56 and 1, 25-hydroxy vitamin D level is low at 19. patient is maintained on Sensipar. Not a surgical candidate at this time. Sensipar should help to lower the calcium levels. 3. Hypernatremia associated with free water deficit 4. Left ureteral calculus with left [id number] hydronephrosis ,status post left ureteral stent placement on 07/30/2023 Plan: Continue with IV fluids. decrease Sensipar to once a week repeat labs in a.m.
--- NOTE | 2023-08-01 17:46 | P.PN ---
Subjective Progress Note Date: 08/01/23 Principal diagnosis: Left hydronephrosis secondary to ureteral calculus Patient is a 73-year-old white female being treated for hypercalcemia due to primary hyperparathyroidism. She has a 6.4 mm obstructing left proximal ureteral calculus and underwent left ureteral stent insertion on 07/30/2023. She currently denies flank pain. Her serum calcium level is now normal, and she is much more alert. Her renal function continues to improve. Objective - Vital Signs Vital signs: Vital Signs Temp 98.1 F 08/01/23 16:35 Pulse 62 08/01/23 16:35 Resp 16 08/01/23 16:35 BP 146/78 08/01/23 16:35 Pulse Ox 99 08/01/23 16:35 FiO2 Intake & Output 07/31/23 08/01/23 08/01/23 18:59 06:59 18:59 Intake Total 236 236 Output Total 550 350 400 Balance -314 -350 -164 Intake: Oral 236 236 Output: Urine 550 350 400 Other: Voiding Method Indwelling Catheter Indwelling Catheter Indwelling Catheter - Constitutional General appearance: Present: average body habitus, cooperative, no acute distress - Psychiatric Psychiatric: Present: A&O x's 3 - Labs CBC & Chem 7: 08/01/23 06:37 08/01/23 06:37 Labs: Abnormal Lab Results - Last 24 Hours (Table) 08/01/23 08/01/23 Range/Units 06:37 06:37 RBC 3.55 L (3.80-5.40) m/uL Hgb 9.8 L (11.4-16.0) gm/dL Hct 33.0 L (34.0-46.0) % MCHC 29.7 L (31.0-37.0) g/dL RDW 16.3 H (11.5-15.5) % Potassium 3.4 L (3.5-5.1) mmol/L Chloride 114 H (98-107) mmol/L Carbon Dioxide 20 L (22-30) mmol/L BUN 29 H (7-17) mg/dL Creatinine 1.65 H (0.52-1.04) mg/dL AST 37 H (14-36) U/L Alkaline Phosphatase 227 H (38-126) U/L Total Protein 4.9 L (6.3-8.2) g/dL Albumin 2.2 L (3.5-5.0) g/dL Microbiology - Last 24 Hours (Table) 07/30/23 16:08 Urine Culture - Final Urine,Voided Assessment and Plan (1) Ureterolithiasis Current Visit: Yes Status: Acute Code(s): N20.1 - CALCULUS OF URETER SNOMED Code(s): 66038564 (2) Hydronephrosis with renal and ureteral calculous obstruction Current Visit: Yes Status: Acute Code(s): N13.2 - HYDRONEPHROSIS WITH RENAL AND URETERAL CALCULOUS OBSTRUCTION SNOMED Code(s): 676250518 Plan: The patient's left ureteral obstruction has been relieved with ureteral stent insertion. She is likely to be transferred back to her [facility] early this week. The Lay catheter will be removed tomorrow. Arrangements will be made for her to undergo cystoscopy, left ureteral stent removal, left ureteroscopy with laser lithotripsy and possible stone basketing later this month. Please notify us if we can be of any further assistance during this hospitalization.
--- NOTE | 2023-08-01 19:37 | P.PN ---
Subjective Progress Note Date: 08/01/23 This is a pleasant 73-year-old patient currently resident of [facility]. In [place]. Patient's at the bedside. At the baseline patient not able to walk. Needs full assist. May take couple of steps. For last 6 days patient is barely been eating. Having nausea vomiting. Has felt warm. Tired rundown. Was found to have elevated sodium and increase calcium in the ER. Started on IV fluids. CT scan at [facility] showed mild to moderate left hydronephrosis with a 6.4 mm left proximal ureteral calculus. No abdominal pain. July 28, 2023: Remains on half saline at 150 cc an hour. Some decrease in sodium and slight decrease in creatinine. iPTH come back elevated. Eating about 25%. Tired. Clonidine was added yesterday for blood pressure control. Patient seems to have primary hyperparathyroidism. Though has normal vitamin D level. Patient to be started on Sensipar. 30 mg twice daily. There is no renal dose adjustment. July 28: Poor oral intake. IV fluids at 75 cc an hour. Parathyroid nuclear scan showed increased focal uptake along the inferior left thyroid bed region. Suspicious for parathyroid adenoma. Spoke to and patient's sister at the bedside. Patient is at high risk for surgery. Will follow further. Decreased oral intake. On Sensipar. Given patient's poor intake for last few days decreased moderate protein calorie malnutrition. Some reduction in calcium July 29: Patient looking better. Smiling actually. Patient due for cystoscopy and possible left-sided J stent. This afternoon. Spoke to the dependency case manager Stacie. Patient be able to return to [facility] on Wednesday. Discussed with Dr. Cartwright from nephrology. Given that calcium is better parathyroid surgery not indicated -. If needed be Dr. Champion test parathyroid surgery. Continue with current dose of cicalnet. 07/31/2023 Patient is seen and evaluated in follow-up today a little more awake today per at the bedside. Patient continues to be extremely weak and per has been living there for the last 3 months. Patient being followed by multiple medical consultation is status post cystoscopy with left ureteral stent placement. Patient also noted to have significant left hydronephrosis secondary to ureteral calculus obstruction. Calcium has improved nephrology following closely recommend follow-up labs. Plan will be for patient to return to [facility] once stabilized and discharged. Patient is afebrile with no reports of chest pain or shortness of breath. Patient reports able to eat a little more but not much of an appetite. 08/01/2023 Patient is evaluated today in follow up. Resting in bed, eating. Awake alert. Patient tearful about returning to the ECF eventually wants to return home. She has not been ambulatory. Patient is status post left ureteral stent placement, galan catheter in place. Patient has been incontinent of multiple loose BMs today. Her bottom is excoriated. BUN is 29, creatinine 1.65. Magnesium 1.7, potassium 3.4 Calcium down to 9.5. Review of systems: Constitutional: reports of fatigue but no worsening, no fever, or chills Cardiovascular: No reports of chest pain or palpitations Respiratory: No reports of shortness of breath or cough GI: No reports of nausea, vomiting, or diarrhea, reports not much of an appetite : No reports of dysuria or retention Neurovascular: reports of generalized weakness All medications have been reviewed Physical examination: GENERAL: This is a 73-year-old female who is semi-sitting up in the bed, awake, alert and oriented x 3, well-developed, ill-appearing, morbidly obese EYES: Pupils equal. Conjunctiva normal. HEENT: External appearance of nose and ears normal, oral cavity grossly dry mucous membrane NECK: JVD not raised; masses not palpable. HEART: S1, S2 are muffled LUNGS: Diminished breath sounds bilaterally otherwise clear to auscultation with no wheezing or rhonchi noted. Respiratory rate normal ABDOMEN: Soft, obese, nontender, normal bowel sounds noted, no masses palpable. PSYCH: Mood affect much better. Smiling. Attentive to answer simple questions MUSCULOSKELETAL: No Clubbing/cyanosis;muscles-grossly intact. OA Dermatological: Chronic venous changes lower extremity Assessment plan: -Acute metabolic encephalopathy, from severe electrolyte abnormality: Improvement -Diarrhea likely from constipation. Will add dulcolax suppository x 1. -Primary hyperparathyroidism causing hypercalcemia., Status post parathyroid nuclear scan with increased uptake in the left lower pole. Increased iPTH 121. Vitamin D: 56.1. Low vitamin D 1, 25-dihydroxy at 19, surgery evaluated with no plans of surgical intervention at this time -Chronic gout continue allopurinol -Depression: Continue current medication regimen, increase Lexapro to 20 mg daily -Essential hypertension, with history of CKD -GERD, continue PPI -Chronic medical debility. At baseline can only take 2 or 3 steps with assistance., Has been residing at [facility] for 3 months per -Primary osteoarthritis -Moderate protein calorie malnutrition from decreased oral intake, continue to encourage oral intake and Ensure supplements -Probable acute on chronic kidney disease -Left hydronephrosis, worsening, status post cystoscopy with left ureteral stent placement. Patient to follow-up with urology outpatient for lithotripsy and basket retrieval with stent removal discussion -Hypernatremia from free water deficit from decreased oral intake: Resolved -GI prophylaxis -DVT prophylaxis -Full code Plan: Patient is status post cystoscopy with left ureteral stent placement with urology recommending outpatient follow-up for removal and basket retrieval and lithotripsy Calcium improved and nephrology following recommending outpatient follow-up Will repeat labs Encouraged oral intake and recommend supervision with meals and aspiration precautions Case management following and patient will be returning to [facility] Patient was evaluated by surgery with no plans of surgical intervention at this time. Follow-up with repeat labs outpatient Possible discharge planning on Wednesday The impression and plan of care has been dictated by Neelam Carrington Nurse Practitioner as directed. Dr. Troy MD I have performed a history and physical examination and medical decision making of this patient, discussed the same with the dictator, and agree with the dictators assessment and plan as written, documented as a scribe. Based on total visit time, I have performed more than 50% of this visit. Objective - Vital Signs Vital signs: Vital Signs Temp 98.2 F 08/01/23 08:25 Pulse 65 08/01/23 08:25 Resp 16 08/01/23 08:25 BP 96/56 08/01/23 08:25 Pulse Ox 97 08/01/23 08:25 FiO2 Intake & Output 07/31/23 08/01/23 08/01/23 18:59 06:59 18:59 Intake Total 236 118 Output Total 550 350 Balance -314 -350 118 Intake: Oral 236 118 Output: Urine 550 350 Other: Voiding Method Indwelling Catheter Indwelling Catheter Indwelling Catheter - Labs CBC & Chem 7: 08/01/23 06:37 08/01/23 06:37 Labs: Abnormal Lab Results - Last 24 Hours (Table) 07/29/23 08/01/2307/31/24 Range/Units 19:31 06:37 06:37 RBC 3.55 L (3.80-5.40) m/uL Hgb 9.8 L (11.4-16.0) gm/dL Hct 33.0 L (34.0-46.0) % MCHC 29.7 L (31.0-37.0) g/dL RDW 16.3 H (11.5-15.5) % Potassium 3.4 L (3.5-5.1) mmol/L Chloride 114 H (98-107) mmol/L Carbon Dioxide 20 L (22-30) mmol/L BUN 29 H (7-17) mg/dL Creatinine 1.65 H (0.52-1.04) mg/dL AST 37 H (14-36) U/L Alkaline Phosphatase 227 H (38-126) U/L Total Protein 4.9 L (6.3-8.2) g/dL Albumin 2.2 L (3.5-5.0) g/dL Ur Calcium 24 Hr 72.0 L (100.0-300.0) mg/24Hr Microbiology - Last 24 Hours (Table) 07/30/23 16:08 Urine Culture - Final Urine,Voided Assessment and Plan Time with Patient: Less than 30
[2023-08-01] MEDS: NYSTATIN 100,000 UNIT/GM POWD 15 GM TOPICAL SCH (21:26)
[2023-08-01] MEDS: MENTHOL-ZINC OXIDE OINT 113 GM TUBE TOPICAL PRN (21:26)
[2023-08-01] MEDS: bisacodyL 10 MG SUPP RECTAL STA (21:27)
[2023-08-02] MEDS: ACETAMINOPHEN TAB 325 MG TAB PO PRN (01:09)
[2023-08-02 09:11] LABS: African American GFR (CKD) 36 (>60 ml/min/1.73 sqM); Anion Gap 5 mmol/L; Blood Urea Nitrogen 25 mg/dL (7-17); Calcium 9.2 mg/dL (8.4-10.2); Carbon Dioxide 18 mmol/L (22-30); Chloride 115 mmol/L (98-107); Glucose 91 mg/dL (74-99); Magnesium 1.6 mg/dL (1.6-2.3); Non-African American GFR(CKD) 31 (>60 ml/min/1.73 sqM); Potassium 4.2 mmol/L (3.5-5.1); Sodium 138 mmol/L (137-145)
--- NOTE | 2023-08-02 09:57 | P.PN ---
Subjective Progress Note Date: 08/02/23 Principal diagnosis: Bradycardia The patient is a 73-year-old female patient was admitted to the hospital with electrolytes imbalance and hypercalcemia associated with bradycardia. We consulted to see the patient because of that. Currently the patient is not on any AV brandon kymberly agents. She reports no symptoms at this morning. August 02, 2023 The patient was seen and evaluated. She is asymptomatic. She is hemodynamically stable with heart rate in the 50s but no severe bradycardia noted. Her magnesium was low and she did have an episode of nonsustained ventricular tachycardia. We are going to obtain an echocardiogram with Doppler and correct her magnesium and monitor the blood pressure and heart rate. The pressure has been slightly elevated but she did not receive her medications this morning because of nausea Assessment Electrolytes imbalance with hypercalcemia Bradycardia Nonsustained ventricular tachycardia Multiple comorbid conditions Plan Continue the current medical regimen Avoid AV brandon kymberly agents Monitor the blood pressure and consider adjusting the medications Replace the magnesium Obtain an echocardiogram with Doppler Objective - Vital Signs Vital signs: Vital Signs Temp 97.4 F L 08/02/23 08:00 Pulse 64 08/02/23 08:00 Resp 18 08/02/23 08:00 BP 188/75 08/02/23 08:00 Pulse Ox 98 08/02/23 08:00 FiO2 Intake & Output 08/01/23 08/02/23 08/02/23 18:59 06:59 18:59 Intake Total 354 20 10 Output Total 400 340 Balance -46 -320 10 Intake: IV 20 10 Invasive Line 2 20 10 Oral 354 0 Output: Urine 400 340 Other: Voiding Method Indwelling Catheter Indwelling Catheter # Bowel Movements 1 - Labs CBC & Chem 7: 08/01/23 06:37 08/02/23 07:23 Labs: Abnormal Lab Results - Last 24 Hours (Table) 08/02/23 Range/Units 07:23 Chloride 115 H (98-107) mmol/L Carbon Dioxide 18 L (22-30) mmol/L BUN 25 H (7-17) mg/dL Creatinine 1.66 H (0.52-1.04) mg/dL
--- NOTE | 2023-08-02 10:18 | P.PN ---
Subjective Patient is seen in follow-up for acute kidney injury and hypercalcemia. Renal function stable. Calcium level trending down. Denies chest pain or shortness of breath. Vomited twice last night. Oral intake fair. Vital signs are stable. General: No acute distress. HEENT: Head exam is unremarkable. LUNGS: No audible rhonchi or wheezes. HEART: Rate and Rhythm are regular. ABDOMEN: Nontender. EXTREMITITES: No edema. Objective - Vital Signs Vital signs: Vital Signs Temp 97.4 F L 08/02/23 08:00 Pulse 64 08/02/23 08:00 Resp 18 08/02/23 08:00 BP 188/75 08/02/23 08:00 Pulse Ox 98 08/02/23 08:00 FiO2 Intake & Output 08/01/23 08/02/23 08/02/23 18:59 06:59 18:59 Intake Total 354 20 10 Output Total 400 340 Balance -46 -320 10 Intake: IV 20 10 Invasive Line 2 20 10 Oral 354 0 Output: Urine 400 340 Other: Voiding Method Indwelling Catheter Indwelling Catheter # Bowel Movements 1 - Labs CBC & Chem 7: 08/01/23 06:37 08/02/23 07:23 Labs: Abnormal Lab Results - Last 24 Hours (Table) 08/02/23 Range/Units 07:23 Chloride 115 H (98-107) mmol/L Carbon Dioxide 18 L (22-30) mmol/L BUN 25 H (7-17) mg/dL Creatinine 1.66 H (0.52-1.04) mg/dL Assessment and Plan Plan: Assessment: 1. Acute kidney injury secondary to hypercalcemia induced ATN. Also component of obstructive uropathy. Creatinine peaked at 2.76 this admission and is 1.66 today. Creatinine as low as 1.07-1.08 in October 2019. 2. Left-sided hydronephrosis status post ureteral stent placement on July 30, 2023. Urology following. 3. Hypercalcemia secondary to primary hyperparathyroidism. PTH elevated at 121. Parathyroid nuclear scan suggestive of parathyroid adenoma. Vitamin D level 56.1. Calcitriol level 19. Serum immunofixation positive for IgM kappa paraprotein. 4. Hypernatremia from lack of oral water intake. Improved. Plan: Change IV fluids to normal saline at 50 cc an hour. Encouraged oral intake, including free water. Maintain Sensipar. Avoid calcium and vitamin D supplements. Consult oncology due to immunofixation findings. Avoid nephrotoxins. Continue to monitor renal function and urine output. She will be referred for possible parathyroidectomy outpatient.
[2023-08-02] MEDS: HEPARIN SODIUM,PORCINE 5,000 UNIT/ML 1 ML VIAL SQ SCH (10:27)
[2023-08-02] MEDS: CINACALCET 30 MG TAB PO SCH (10:27)
[2023-08-02 10:32] LABS: Anisocytosis Slight; HCT 34.9 % (34.0-46.0); HGB 10.7 gm/dL (11.4-16.0); Hypochromasia Moderate; MCH 28.3 pg (25.0-35.0); MCHC 30.8 g/dL (31.0-37.0); Mean Platelet Volume 10.7; Platelet Count 278 k/uL (150-450); RBC 3.79 m/uL (3.80-5.40); RDW 16.6 % (11.5-15.5); WBC 12.5 k/uL (3.8-10.6)
[2023-08-02] MEDS: SODIUM CHLORIDE 0.9% 1,000 ML IV SCH (10:35)
[2023-08-02] MEDS: MAGNESIUM SULFATE-D5W PMX 1 GM in DEXTROSE/WATER 1 100ML.BAG IVPB SCH (10:35)
[2023-08-02 12:33] LABS: Eosinophils # (M) 0.38 k/uL (0-0.7); Lymphocytes # (M) 1.13 k/uL (1.0-4.8); Monocytes # (M) 0.88 k/uL (0-1.0); Neutrophils # (M) 10.13 k/uL (1.3-7.7); Neutrophils % (M) 81 %; Nucleated Red Blood Cells 0 /100 WBC (0-0); Total Cells Counted 100
[2023-08-02 15:09] VITALS: BMI 47.2
--- NOTE | 2023-08-02 16:01 | P.CONS ---
History of Present Illness - Reason for Consult Consult date: 08/02/23 IgM kappa, hypercalcemia Requesting physician: Calvin Hahn - Chief Complaint abnormal labs - History of Present Illness Patient is a 73-year-old female who we are placed on consult for suspicion of IgM kappa paraprotein and hypercalcemia. Patient initially presented to emergency room with for abnormal labs, and increase lethargy. Patient was found to have calcium at 13.9. She was also found to have BRAEDEN with creatinine 2.48. Ultrasound KUB revealed mild left-sided hydronephrosis and dominant 5.4 cm left renal cyst. Patient underwent left-sided urethral stent placement. Calcium now normal at 9.2, kidney function improving, creatinine 1.66, GFR 31. Patient was also noted to have elevated PTH at 121. Nuclear medicine parathyroid scan revealed uptake in inferior left thyroid bed region suggesting underlying parathyroid adenoma. CBC showing WBC 12.5, hemoglobin 10.7, MCV 92.0, platelets 278,000. Differential showing neutrophilia. Bilirubin 0.5, transaminitis noted. Immunofixation reporting suspicion for IgM kappa paraprotein. Patient denies a known history of the same or other blood disorders, and denies history of cancer. Review of Systems 10 point ROS is negative except as stated in the HPI Past Medical History Past Medical History: Hypertension, Skin Disorder Additional Past Medical History / Comment(s): Diagnosed with cellulits "3-4" years ago, ongoing infection. History of Any Multi-Drug Resistant Organisms: None Reported Past Surgical History: Section, Cholecystectomy, Joint Replacement, Tonsillectomy, Tubal Ligation Additional Past Surgical History / Comment(s): pt states she has had 3 c- sections, tubal ligation, knee replacement, and partial knee replacement removal. Past Anesthesia/Blood Transfusion Reactions: No Reported Reaction Past Psychological History: No Psychological Hx Reported Smoking Status: Never smoker Past Alcohol Use History: None Reported Past Drug Use History: None Reported Medications and Allergies Home Medications Medication Instructions Recorded Confirmed Type Metoprolol Tartrate [Lopressor] 50 mg PO HS 10/30/19 07/27/23 History ALPRAZolam [Xanax] 0.5 mg PO Q12H PRN 07/27/23 07/27/23 History Acetaminophen Tab [Tylenol] 650 mg PO Q4H PRN MDD 3000mg 07/27/23 07/27/23 History Atrac-Tain 1 applic TOPICAL TUTHSA@2100 07/27/23 07/27/23 History Doxycycline [Vibramycin] 100 mg PO BID@0700,1900 07/27/23 07/27/23 History Escitalopram Oxalate [Lexapro] 10 mg PO DAILY@0700 07/27/23 07/27/23 History Ferrous Sulfate [Feosol] 325 mg PO MOWEFR@1300 07/27/23 07/27/23 History Nichole-Lanta 20 ml PO Q6H PRN 07/27/23 07/27/23 History L.acidoph,Paracasei, B.lactis 2 cap PO DAILY@1300 07/27/23 07/27/23 History [Probiotic] Liquacel 30 ml PO BID@0700,1700 07/27/23 07/27/23 History Omeprazole [PriLOSEC] 40 mg PO DAILY@0700 07/27/23 07/27/23 History Ondansetron [Zofran] 4 mg PO Q8H PRN 07/27/23 07/27/23 History Simethicone [Gas-X] 125 mg PO TID 07/27/23 07/27/23 History allopurinoL 100 mg PO DAILY 07/27/23 07/27/23 History bisacodyL [Dulcolax] 10 mg RECTAL Q3D PRN 07/27/23 07/27/23 History oxyCODONE HCL [OxyIR] 5 mg PO Q3H PRN 07/27/23 07/27/23 History polyethylene glycoL 3350 [Miralax] 17 gm PO DAILY PRN 07/27/23 07/27/23 History Allergies Allergy/AdvReac Type Severity Reaction Status Date / Time No Known Allergies Allergy Verified 07/27/23 09:56 Physical Exam Vitals: Vital Signs Temp Pulse Pulse Resp BP Pulse Ox 08/02/23 12:00 97.4 F L 99 16 145/78 95 08/02/23 08:00 97.4 F L 64 18 188/75 98 08/02/23 04:00 98.2 F 68 19 146/77 99 08/02/23 02:00 82 18 08/02/23 00:00 98.3 F 82 19 162/72 98 08/01/23 20:00 98.5 F 70 70 18 145/74 99 08/01/23 16:35 98.1 F 62 16 146/78 99 Intake and Output 08/01/23 08/02/23 08/02/23 22:59 06:59 14:59 Intake Total 128 10 10 Output Total 400 340 Balance -272 -330 10 Intake: IV 10 10 10 Invasive Line 2 10 10 10 Oral 118 0 Output: Urine 400 340 Other: Voiding Method Indwelling Catheter Indwelling Catheter External Catheter # Bowel Movements 1 - Constitutional General appearance: no acute distress - EENT Eyes: anicteric sclerae, EOMI ENT: hearing grossly normal - Respiratory Respiratory: bilateral: CTA - Cardiovascular Rhythm: regular - Gastrointestinal General gastrointestinal: soft, no tenderness - Integumentary Integumentary: no cyanotic - Musculoskeletal Musculoskeletal: generalized weakness - Psychiatric Psychiatric: A&O x's 3 Results CBC & Chem 7: 08/02/23 07:23 08/02/23 07:23 Labs: Abnormal Lab Results - Last 24 Hours (Table) 08/02/23 08/02/23 Range/Units 07:23 07:23 WBC 12.5 H (3.8-10.6) k/uL RBC 3.79 L (3.80-5.40) m/uL Hgb 10.7 L (11.4-16.0) gm/dL MCHC 30.8 L (31.0-37.0) g/dL RDW 16.6 H (11.5-15.5) % Neutrophils # (Manual) 10.13 H (1.3-7.7) k/uL Chloride 115 H (98-107) mmol/L Carbon Dioxide 18 L (22-30) mmol/L BUN 25 H (7-17) mg/dL Creatinine 1.66 H (0.52-1.04) mg/dL Comments: parathyroid scan and US KUB reviewed Assessment and Plan (1) Abnormal laboratory test Current Visit: Yes Status: Acute Code(s): R89.9 - UNSP ABNORMAL FINDING IN SPECIMENS FROM OTH ORG/TISS SNOMED Code(s): 279705653 (2) CKD (chronic kidney disease) Current Visit: Yes Status: Acute Code(s): N18.9 - CHRONIC KIDNEY DISEASE, UNSPECIFIED SNOMED Code(s): 563339550 (3) Hydronephrosis with renal and ureteral calculous obstruction Current Visit: Yes Status: Acute Code(s): N13.2 - HYDRONEPHROSIS WITH RENAL AND URETERAL CALCULOUS OBSTRUCTION SNOMED Code(s): 313910247 (4) Hypercalcemia Current Visit: Yes Status: Acute Code(s): E83.52 - HYPERCALCEMIA SNOMED Code(s): 78774960 (5) Hyperparathyroidism Current Visit: Yes Status: Acute Code(s): E21.3 - HYPERPARATHYROIDISM, UNSPECIFIED SNOMED Code(s): 25350605 Plan: Hypercalcemia, hyperparathyroidism, BRAEDEN: -On admission calcium elevated at 13.9. Treated with IV hydration, lasix and zometa. Calcium now normal at 9.2 -PTH 121. Vitamin D 56.1. Vitamin D 1, 25-dihydroxy mildly decreased at 19 -Nuclear medicine parathyroid scan revealed uptake in inferior left thyroid bed region suggesting underlying parathyroid adenoma. -On admission, creatinine elevated 2.48. Ultrasound KUB revealed mild left- sided hydronephrosis and dominant 5.4 cm left renal cyst. S/p left-sided urethral stent placement. Kidney function improving, creatinine 1.66, GFR 31. Urology and nephrology following -With noted elevated PTH, hypercalcemia not likely r/t IgM paraprotein -Patient would benefit from surgical evaluation for noted parathyroid adenoma. Defer management to admitting team IgM Orr paraprotein: -Immunofixation suspicious for IgM kappa paraprotein. This is likely an incidental finding -CBC today revealed WBC 12.5, hemoglobin 10.7, platelets 278,000. Differential showing neutrophilia, with no other significant abnormalities -Will obtain SPEP, immunoglobulins and K/L LCs to further evaluate
--- NOTE | 2023-08-02 17:41 | CA ---
Transthoracic Echo Report Name: Davina Hager Age: 73 Gender: F : 1950 Exam Date: 08/02/2023 14:24 Exam Location: [facility] Ht (in): 69 Wt (lb): 320 Ordering Physician: Inocencio Ceballos MD ([id number]) Attending/Referring Phys: Fiscal Economist Katie Thakur RDCS Procedure CPT: Indications: arrhythmias Cardiac Hx: Technical Quality: Good Contrast 1: Total Dose (mL): Contrast 2: Total Dose (mL): MEASUREMENTS (Male / Female) Normal Values 2D ECHO LV Diastolic Diameter PLAX 4.9 cm 4.2 - 5.9 / 3.9 - 5.3 cm LV Systolic Diameter PLAX 3.1 cm IVS Diastolic Thickness 1.4 cm 0.6 - 1.0 / 0.6 - 0.9 cm LVPW Diastolic Thickness 1.6 cm 0.6 - 1.0 / 0.6 - 0.9 cm LV Relative Wall Thickness 0.6 RV Internal Dim ED PLAX 3.2 cm LA Systolic Diameter LX 3.7 cm 3.0 - 4.0 / 2.7 - 3.8 cm LA Volume 69.1 cm??? 18 - 58 / 22 - 52 cm??? LA Volume Index 25.2 cm???/m??? 16 - 28 cm???/m??? M-MODE Aortic Root Diameter MM 3.2 cm AV Cusp Separation MM 2.0 cm DOPPLER AV Peak Velocity 163.6 cm/s AV Peak Gradient 10.7 mmHg MV Peak Velocity 146.3 cm/s MV Peak Gradient 8.6 mmHg MV Mean Velocity 94.8 cm/s MV Mean Gradient 4.0 mmHg MV Velocity Time Integral 42.9 cm MV Area PHT 1.8 cm??? Mitral E Point Velocity 64.4 cm/s Mitral A Point Velocity 110.9 cm/s Mitral E to A Ratio 0.6 MV Deceleration Time 421.7 ms FINDINGS Left Ventricle Left ventricular ejection fraction is estimated at 60-65 %. Left ventricular cavity size normal. Moderately increased septal wall thickness. Moderately increased posterior wall thickness. Right Ventricle Normal right ventricular size and function. Unable to estimate the right ventricular systolic pressure. Right Atrium Normal right atrial size. No right atrial thrombus or mass seen. Left Atrium Moderately increased left atrial volume. Mildly increased left atrial area. Mitral Valve Mitral valve thickened. No mitral stenosis. No evidence for mitral valve prolapse. Trace mitral regurgitation. Aortic Valve Trileaflet aortic valve. Aortic valve sclerosis. No aortic valve stenosis or regurgitation. Tricuspid Valve Structurally normal tricuspid valve. No tricuspid stenosis, regurgitation or prolapse. Pulmonic Valve Structurally normal pulmonic valve. Trace pulmonic regurgitation. Pericardium No pericardial or pleural effusion. Aorta Normal size aortic root and proximal ascending aorta. CONCLUSIONS Normal LV function Previewed by: Dr. Stan Alicea MD (Electronically Signed) Final Date: 02 August 2023 17:40
--- NOTE | 2023-08-03 07:37 | P.PN ---
Subjective Progress Note Date: 08/02/23 This is a pleasant 73-year-old patient currently resident of [facility]. In [place]. Patient's at the bedside. At the baseline patient not able to walk. Needs full assist. May take couple of steps. For last 6 days patient is barely been eating. Having nausea vomiting. Has felt warm. Tired rundown. Was found to have elevated sodium and increase calcium in the ER. Started on IV fluids. CT scan at [facility] showed mild to moderate left hydronephrosis with a 6.4 mm left proximal ureteral calculus. No abdominal pain. July 28, 2023: Remains on half saline at 150 cc an hour. Some decrease in sodium and slight decrease in creatinine. iPTH come back elevated. Eating about 25%. Tired. Clonidine was added yesterday for blood pressure control. Patient seems to have primary hyperparathyroidism. Though has normal vitamin D level. Patient to be started on Sensipar. 30 mg twice daily. There is no renal dose adjustment. July 28: Poor oral intake. IV fluids at 75 cc an hour. Parathyroid nuclear scan showed increased focal uptake along the inferior left thyroid bed region. Suspicious for parathyroid adenoma. Spoke to and patient's sister at the bedside. Patient is at high risk for surgery. Will follow further. Decreased oral intake. On Sensipar. Given patient's poor intake for last few days decreased moderate protein calorie malnutrition. Some reduction in calcium July 29: Patient looking better. Smiling actually. Patient due for cystoscopy and poss ible left-sided J stent. This afternoon. Spoke to the case management manager Stacie. Patient be able to return to [facility] on Wednesday. Discussed with Dr. Cartwright from nephrology. Given that calcium is better parathyroid surgery not indicated -. If needed be Dr. Champion test parathyroid surgery. Continue with current dose of cicalnet. 07/31/2023 Patient is seen and evaluated in follow-up today a little more awake today per at the bedside. Patient continues to be extremely weak and per has been living there for the last 3 months. Patient being followed by multiple medical consultation is status post cystoscopy with left ureteral stent placement. Patient also noted to have significant left hydronephrosis secondary to ureteral calculus obstruction. Calcium has improved nephrology following closely recommend follow-up labs. Plan will be for patient to return to [facility] once stabilized and discharged. Patient is afebrile with no reports of chest pain or shortness of breath. Patient reports able to eat a little more but not much of an appetite. 08/01/2023 Patient is evaluated today in follow up. Resting in bed, eating. Awake alert. Patient tearful about returning to the ECF eventually wants to return home. She has not been ambulatory. Patient is status post left ureteral stent placement, galan catheter in place. Patient has been incontinent of multiple loose BMs today. Her bottom is excoriated. BUN is 29, creatinine 1.65. Magnesium 1.7, potassium 3.4 Calcium down to 9.5. 08/02/2023 Patient is seen in follow-up today with multiple medical consultations following. Hematology following for immunofixation's noted on labs as well as pending echo from cardiology. Patient is afebrile reports to eating some but not much of an appetite. Patient has occasional nausea. Magnesium 1.6 and replace per protocol will follow-up with repeat labs. plans on returning to ECF once stabilized and cleared by consultations. Review of systems: Constitutional: reports of fatigue but no worsening, no fever, or chills Cardiovascular: No reports of chest pain or palpitations Respiratory: No reports of shortness of breath or cough GI: No reports of nausea, vomiting, or diarrhea, reports not much of an appetite : No reports of dysuria or retention Neurovascular: reports of generalized weakness All medications have been reviewed Physical examination: GENERAL: This is a 73-year-old female who is semi-sitting up in the bed, awake, alert and oriented x 3, well-developed, ill-appearing, morbidly obese EYES: Pupils equal. Conjunctiva normal. HEENT: External appearance of nose and ears normal, oral cavity grossly dry muco us membrane NECK: JVD not raised; masses not palpable. HEART: S1, S2 are muffled LUNGS: Diminished breath sounds bilaterally otherwise clear to auscultation with no wheezing or rhonchi noted. Respiratory rate normal ABDOMEN: Soft, obese, nontender, normal bowel sounds noted, no masses palpable. PSYCH: Mood affect much better. Smiling. Attentive to answer simple questions MUSCULOSKELETAL: No Clubbing/cyanosis;muscles-grossly intact. OA Dermatological: Chronic venous changes lower extremity Assessment plan: -Acute metabolic encephalopathy, from severe electrolyte abnormality: Improvem ent -Diarrhea likely from constipation. Will add dulcolax suppository x 1. -Primary hyperparathyroidism causing hypercalcemia., Status post parathyroid nuclear scan with increased uptake in the left lower pole. Increased iPTH 121. Vitamin D: 56.1. Low vitamin D 1, 25-dihydroxy at 19, surgery evaluated with no plans of surgical intervention at this time -Chronic gout continue allopurinol -Depression: Continue current medication regimen, increase Lexapro to 20 mg daily -Essential hypertension, with history of CKD -GERD, continue PPI -Chronic medical debility. At baseline can only take 2 or 3 steps with assistance., Has been residing at [facility] for 3 months per -Primary osteoarthritis -Moderate protein calorie malnutrition from decreased oral intake, continue to encourage oral intake and Ensure supplements -Probable acute on chronic kidney disease -Left hydronephrosis, worsening, status post cystoscopy with left ureteral stent placement. Patient to follow-up with urology outpatient for lithotripsy and basket retrieval with stent removal discussion -Hypernatremia from free water deficit from decreased oral intake: Resolved -GI prophylaxis -DVT prophylaxis -Full code Plan: Patient is status post cystoscopy with left ureteral stent placement with urology recommending outpatient follow-up for removal and basket retrieval and lithotripsy Calcium improved and nephrology following recommending outpatient follow-up. Nephrology has consulted hematology for immunofixation and further testing ordered Will repeat labs 2D echo ordered and pending Encouraged oral intake and recommend supervision with meals and aspiration precautions Case management following and patient will be returning to [facility] Patient was evaluated by surgery with no plans of surgical intervention at this time. Follow-up with repeat labs outpatient Will discuss with other consultations regarding discharge planning The impression and plan of care has been dictated by Kizzy Cartagena, Nurse Practitioner as directed. Dr. Troy MD I have performed a history and examination and MDM of this patient, discussed the same with the dictator, and agree with the dictator's assessment and plan as written ,documented as a scribe. Based on total visit time, I have performed more than 50% of the visit. Follow-up Objective - Vital Signs Vital signs: Vital Signs Temp 97.4 F L 08/02/23 08:00 Pulse 64 08/02/23 08:00 Resp 18 08/02/23 08:00 BP 188/75 08/02/23 08:00 Pulse Ox 98 08/02/23 08:00 FiO2 Intake & Output 08/01/23 08/02/23 08/02/23 18:59 06:59 18:59 Intake Total 354 20 10 Output Total 400 340 Balance -46 -320 10 Intake: IV 20 10 Invasive Line 2 20 10 Oral 354 0 Output: Urine 400 340 Other: Voiding Method Indwelling Catheter Indwelling Catheter # Bowel Movements 1 - Labs CBC & Chem 7: 08/02/23 07:23 08/02/23 07:23 Labs: Abnormal Lab Results - Last 24 Hours (Table) 08/02/23 Range/Units 07:23 Chloride 115 H (98-107) mmol/L Carbon Dioxide 18 L (22-30) mmol/L BUN 25 H (7-17) mg/dL Creatinine 1.66 H (0.52-1.04) mg/dL
--- NOTE | 2023-08-03 09:36 | P.PN ---
Subjective Patient is seen in follow-up for acute kidney injury and hypercalcemia. Renal function stable. Calcium level trending down. Denies chest pain or shortness of breath. Tolerating oral intake. No vomiting last night. Vital signs are stable. General: No acute distress. HEENT: Head exam is unremarkable. LUNGS: No audible rhonchi or wheezes. HEART: Rate and Rhythm are regular. ABDOMEN: Nontender. EXTREMITITES: No edema. Objective - Vital Signs Vital signs: Vital Signs Temp 97 F L 08/03/23 08:00 Pulse 81 08/03/23 08:00 Resp 18 08/03/23 08:00 BP 157/67 08/03/23 08:00 Pulse Ox 96 08/03/23 08:00 FiO2 Intake & Output 08/02/23 08/03/23 08/03/23 18:59 06:59 18:59 Intake Total 20 20 0 Output Total 450 480 Balance -430 -460 0 Weight 145.15 kg Intake: IV 20 20 Invasive Line 2 20 20 Oral 0 0 Output: Urine 450 480 Other: Voiding Method External Catheter External Catheter - Labs CBC & Chem 7: 08/02/23 07:23 08/02/23 07:23 Labs: Abnormal Lab Results - Last 24 Hours (Table) 08/02/23 08/02/23 Range/Units 07:23 07:23 WBC 12.5 H (3.8-10.6) k/uL RBC 3.79 L (3.80-5.40) m/uL Hgb 10.7 L (11.4-16.0) gm/dL MCHC 30.8 L (31.0-37.0) g/dL RDW 16.6 H (11.5-15.5) % Neutrophils # (Manual) 10.13 H (1.3-7.7) k/uL Total Protein (PEP) 5.0 L (6.2-8.2) g/dL Assessment and Plan Plan: Assessment: 1. Acute kidney injury secondary to hypercalcemia induced ATN. Also component of obstructive uropathy. Creatinine peaked at 2.76 this admission - 1.66 yesterday. Creatinine as low as 1.07-1.08 in October 2019. 2. Left-sided hydronephrosis status post ureteral stent placement on July 30, 2023. Urology following. 3. Hypercalcemia secondary to primary hyperparathyroidism. PTH elevated at 121. Parathyroid nuclear scan suggestive of parathyroid adenoma. Vitamin D level 56.1. Calcitriol level 19. Serum immunofixation positive for IgM kappa paraprotein. Oncology following. 4. Hypernatremia from lack of oral water intake. Improved. 5. Metabolic acidosis secondary to acute kidney injury and IV fluids. 6. Benign hypertension. Plan: Maintain normal saline. Encouraged oral intake. Maintain Sensipar. Avoid calcium and vitamin D supplements. Add oral bicarb. Avoid nephrotoxins. Continue to monitor renal function and urine output. She will be referred for possible parathyroidectomy outpatient. Stop losartan and hydrochlorothiazide in view of acute kidney injury and hypercalcemia. Add hydralazine.
[2023-08-03] MEDS: hydrALAZINE HCL 25 MG TAB PO SCH (10:06)
[2023-08-03 10:58] LABS: ALT 22 U/L (4-34); AST 33 U/L (14-36); African American GFR (CKD) 41 (>60 ml/min/1.73 sqM); Albumin 2.4 g/dL (3.5-5.0); Alkaline Phosphatase 221 U/L (38-126); Anion Gap 4 mmol/L; Blood Urea Nitrogen 17 mg/dL (7-17); Calcium 8.5 mg/dL (8.4-10.2); Carbon Dioxide 19 mmol/L (22-30); Chloride 115 mmol/L (98-107); Glucose 141 mg/dL (74-99); Magnesium 1.9 mg/dL (1.6-2.3); Non-African American GFR(CKD) 36 (>60 ml/min/1.73 sqM); Potassium 3.7 mmol/L (3.5-5.1); Sodium 138 mmol/L (137-145); Total Bilirubin 0.5 mg/dL (0.2-1.3); Total Protein 5.1 g/dL (6.3-8.2)
--- NOTE | 2023-08-03 11:27 | P.PN ---
Subjective Progress Note Date: 08/03/23 Bradycardia The patient is a 73-year-old female patient was admitted to the hospital with electrolytes imbalance and hypercalcemia associated with bradycardia. We consulted to see the patient because of that. Currently the patient is not on any AV brandon kymberly agents. She reports no symptoms at this morning. August 02, 2023 The patient was seen and evaluated. She is asymptomatic. She is hemodynamic ally stable with heart rate in the 50s but no severe bradycardia noted. Her magnesium was low and she did have an episode of nonsustained ventricular tachycardia. We are going to obtain an echocardiogram with Doppler and correct her magnesium and monitor the blood pressure and heart rate. The pressure has been slightly elevated but she did not receive her medications this morning because of nausea 08/02 Patient is seen today in follow-up. Telemetry is sinus rhythm, heart rate is in the 60s. Blood pressure 145/63, echocardiogram reveals EF of 60 to 65%. Assessment Electrolytes imbalance with hypercalcemia Bradycardia Nonsustaine, improved d ventricular tachycardia Multiple comorbid conditions Plan Continue the current medical regimen Avoid AV brandon kymberly agents Start patient on losartan/hydrochlorothiazide 50-12.5 mg daily Continue to monitor blood pressure closely Nurse practitioner note has been reviewed, I agree with documented findings and plan of care. Patient was seen and examined. Objective - Vital Signs Vital signs: Vital Signs Temp 97.7 F 08/03/23 04:00 Pulse 74 08/03/23 04:00 Resp 19 08/03/23 04:00 BP 145/63 08/03/23 04:00 Pulse Ox 97 08/03/23 04:00 FiO2 Intake & Output 08/02/23 08/03/23 08/03/23 18:59 06:59 18:59 Intake Total 20 20 Output Total 450 480 Balance -430 -460 Weight 145.15 kg Intake: IV 20 20 Invasive Line 2 20 20 Oral 0 Output: Urine 450 480 Other: Voiding Method External Catheter External Catheter - Labs CBC & Chem 7: 08/02/23 07:23 08/03/23 10:24 Labs: Abnormal Lab Results - Last 24 Hours (Table) 08/02/23 08/02/23 08/02/23 Range/Units 07:23 07:23 07:23 WBC 12.5 H (3.8-10.6) k/uL RBC 3.79 L (3.80-5.40) m/uL Hgb 10.7 L (11.4-16.0) gm/dL MCHC 30.8 L (31.0-37.0) g/dL RDW 16.6 H (11.5-15.5) % Neutrophils # (Manual) 10.13 H (1.3-7.7) k/uL Chloride 115 H (98-107) mmol/L Carbon Dioxide 18 L (22-30) mmol/L BUN 25 H (7-17) mg/dL Creatinine 1.66 H (0.52-1.04) mg/dL Total Protein (PEP) 5.0 L (6.2-8.2) g/dL
[2023-08-03 11:34] LABS: Anisocytosis Slight; Basophils % (A) 0 %; Eosinophils # (A) 0.3 k/uL (0-0.7); Eosinophils % (A) 3 %; HCT 34.3 % (34.0-46.0); HGB 10.4 gm/dL (11.4-16.0); Hypochromasia Moderate; Lymphocytes # (A) 0.7 k/uL (1.0-4.8); Lymphocytes % (A) 6 %; MCH 27.9 pg (25.0-35.0); MCHC 30.2 g/dL (31.0-37.0); MCV 92.6 fL (80.0-100.0); Mean Platelet Volume 8.5; Monocytes # (A) 0.6 k/uL (0-1.0); Monocytes % (A) 5 %; Neutrophils # (A) 9.9 k/uL (1.3-7.7); Neutrophils % (A) 86 %; Platelet Count 282 k/uL (150-450); RDW 16.5 % (11.5-15.5); WBC 11.5 k/uL (3.8-10.6)
[2023-08-03 12:51] VITALS: RESP 18
[2023-08-03] MEDS: SODIUM BICARBONATE TAB 650 MG TAB PO SCH (12:52)
[2023-08-03] MEDS: LOSARTAN-HCTZ 50-12.5 MG 1 EACH TAB PO SCH (13:39)
--- NOTE | 2023-08-03 15:03 | P.DS ---
Providers Date of admission: 07/26/23 23:06 Expected date of discharge: 08/03/23 Attending physician: Jackson Hernandez Consults: 07/26/23 23:03 Consult Physician Routine Consulting Provider: Wilbert Calixto Consult Reason/Comments: left ureterolithiasis with mild-moderate hydronephrosis Do you want consulting provider notified?: Yes 07/26/23 23:16 Consult Physician Routine Consulting Provider: Calvin Hahn Consult Reason/Comments: hypercalcemia, ckd Do you want consulting provider notified?: Yes 07/30/23 21:57 Consult Physician Stat Consulting Provider: Dain Saucedo Consult Reason/Comments: Bradycardia Do you want consulting provider notified?: Yes 08/02/23 10:17 Consult Physician Routine Consulting Provider: René Rodrigues Consult Reason/Comments: hypercalemia, IgM kappa Do you want consulting provider notified?: Yes Primary care physician: Daryl Celaya [facility] Course: Final diagnosis -Acute metabolic encephalopathy, from severe electrolyte abnormality: Improvement -Diarrhea likely from constipation. Improved, strongly recommend continued bowel regimen -Primary hyperparathyroidism causing hypercalcemia., Status post parathyroid nuclear scan with increased uptake in the left lower pole. Increased iPTH 121. Vitamin D: 56.1. Low vitamin D 1, 25-dihydroxy at 19, surgery evaluated with no plans of surgical intervention at this time -Chronic gout continue allopurinol -Depression: Continue current medication regimen, increase Lexapro to 20 mg daily -Essential hypertension, with history of CKD -GERD, continue PPI -Chronic medical debility. At baseline can only take 2 or 3 steps with assistance., Has been residing at [facility] for 3 months per -Primary osteoarthritis -Moderate protein calorie malnutrition from decreased oral intake, continue to encourage oral intake and Ensure supplements -Probable acute on chronic kidney disease -Left hydronephrosis, worsening, status post cystoscopy with left ureteral stent placement. Patient to follow-up with urology outpatient for lithotripsy and basket retrieval with stent removal discussion -Hypernatremia from free water deficit from decreased oral intake: Resolved -GI prophylaxis -DVT prophylaxis -Full code Discharge disposition Patient is being discharged in a stable condition with guarded prognosis to [facility] . Patient will follow-up with Dr. Celaya in the outpatient setting upon discharge. Patient is to continue with close outpatient follow-up with nephrology, urology, hematology in the outpatient setting as scheduled. Total time taken is greater than 35 minutes. Hospital course This is a 73-year-old female who was recently admitted with altered mental status acute metabolic encephalopathy from multiple electrolyte derangements along with diarrhea and constipation. Patient with multiple medical consultations following including nephrology and noted to have an increased parathyroid uptake also some immunofixation and consulted hematology. Patient will need further hematological study outpatient as this is likely an incidental finding. Patient also with worsening kidney functions and left hydronephrosis noted status post cystoscopy with left ureteral stent placement being followed by urology. Patient will need outpatient follow-up for lithotripsy and stent removal in the outpatient setting. Patient calcium within normal limits and recommend to monitor with repeat labs in the next 2 to 3 days of CBC, BMP, magnesium. Patient to follow-up with nephrology as well in the outpatient setting. Plan is to return to [facility] for continued care. Please refer to other consultation notes for further HPI. Would recommend continuing with a bowel regimen for the constipation and continue with renal diet low potassium along with dysphagia level 2 and aspiration precautions with head of the bed elevated 30 to 45 degrees at all times. Continue with antinausea medications as needed. Currently no reports of chest pain, shortness of breath, or palpitations. Patient is afebrile. No reports of nausea or vomiting and patient is tolerating diet. Patient will be going to [facility]. Guarded prognosis and high risk for readmissions given patient's significant comorbidities Physical exam: Gen: This is a 73 year old female who is awake, all alert and oriented x 3, well-developed, elderly appearing, morbidly obese diminished breath sounds bilaterally otherwise HEENT: Head is atraumatic, normocephalic. Pupils equal, round. Sclerae is anicteric. NECK: Supple. No JVD. No lymphadenopathy. No thyromegaly. LUNGS: Clear to auscultation. No wheezes or rhonchi. No intercostal retractions. HEART: S1, S2 are muffled ABDOMEN: Soft. Obese bowel sounds are present. No masses. No tenderness. EXTREMITIES: No pedal edema. No calf tenderness. Bilateral generalized edema noted NEUROLOGICAL: Patient is awake, alert and oriented x3. Cranial nerves 2 through 12 are grossly intact. Diffusely weak, mostly bedbound Please refer to medication reconciliation sheet for a list of medications. The impression and plan of care has been dictated by Kizzy Cartagena, Nurse Practitioner as directed. Dr. Troy MD I have performed a history and examination and MDM of this patient, discussed the same with the dictator, and agree with the dictator's assessment and plan as written ,documented as a scribe. Based on total visit time, I have performed more than 50% of the visit. Patient Condition at Discharge: Fair Plan - Discharge Summary Discharge Rx Participant: No New Discharge Prescriptions: New Sodium Bicarbonate Tab 650 mg PO BID tab hydrALAZINE HCL [Apresoline] 25 mg PO TID tab Menthol-Zinc Oxide Oint [Calmoseptine Ointment] 1 applic TOPICAL BID PRN each PRN Reason: Skin Irritation Heparin Sodium,Porcine (1 ml) [Heparin Sodium] 5,000 unit SQ Q12HR each Nystatin 100,000 Unit/gm Powd [Mycostatin Powder] 1 applic TOPICAL BID each amLODIPine [Norvasc] 10 mg PO DAILY tab Cinacalcet [Sensipar] 30 mg PO MOWEFR tab Continue polyethylene glycoL 3350 [Miralax] 17 gm PO DAILY PRN PRN Reason: Constipation Nichole-Lanta 20 ml PO Q6H PRN PRN Reason: gas/indigestion Acetaminophen Tab [Tylenol] 650 mg PO Q4H PRN MDD 3000mg PRN Reason: general discomfort Simethicone [Gas-X] 125 mg PO TID Liquacel 30 ml PO BID@0700,1700 L.acidoph,Paracasei, B.lactis [Probiotic] 2 cap PO DAILY@1300 Omeprazole [PriLOSEC] 40 mg PO DAILY@0700 Escitalopram Oxalate [Lexapro] 10 mg PO DAILY@0700 Ferrous Sulfate [Iron (65 MG Elemental)] 325 mg PO MOWEFR@1300 allopurinoL 100 mg PO DAILY oxyCODONE HCL [OxyIR] 5 mg PO Q3H PRN #2 tab PRN Reason: Severe Pain (Scale 7 To 10) ALPRAZolam [Xanax] 0.5 mg PO Q12H PRN #2 tab PRN Reason: Anxiety Ondansetron [Zofran] 4 mg PO Q8H PRN PRN Reason: Nausea And Vomiting bisacodyL [Dulcolax] 10 mg RECTAL Q3D PRN PRN Reason: no BM Atrac-Tain 1 applic TOPICAL TUTHSA@2100 Discontinued Metoprolol Tartrate [Lopressor] 50 mg PO HS Doxycycline [Vibramycin] 100 mg PO BID@0700,1900 Discharge Medication List Acetaminophen Tab [Tylenol] 650 mg PO Q4H PRN MDD 3000mg 07/27/23 [History] Atrac-Tain 1 applic TOPICAL TUTHSA@2100 07/27/23 [History] Escitalopram Oxalate [Lexapro] 10 mg PO DAILY@0700 07/27/23 [History] Ferrous Sulfate [Iron (65 MG Elemental)] 325 mg PO MOWEFR@1300 07/27/23 [History] Nichole-Lanta 20 ml PO Q6H PRN 07/27/23 [History] L.acidoph,Paracasei, B.lactis [Probiotic] 2 cap PO DAILY@1300 07/27/23 [History] Liquacel 30 ml PO BID@0700,1700 07/27/23 [History] Omeprazole [PriLOSEC] 40 mg PO DAILY@0700 07/27/23 [History] Ondansetron [Zofran] 4 mg PO Q8H PRN 07/27/23 [History] Simethicone [Gas-X] 125 mg PO TID 07/27/23 [History] allopurinoL 100 mg PO DAILY 07/27/23 [History] bisacodyL [Dulcolax] 10 mg RECTAL Q3D PRN 07/27/23 [History] polyethylene glycoL 3350 [Miralax] 17 gm PO DAILY PRN 07/27/23 [History] ALPRAZolam [Xanax] 0.5 mg PO Q12H PRN #2 tab 08/03/23 [Rx] Cinacalcet [Sensipar] 30 mg PO MOWEFR tab 08/03/23 [Rx] Heparin Sodium,Porcine (1 ml) [Heparin Sodium] 5,000 unit SQ Q12HR each 08/03/23 [Rx] Menthol-Zinc Oxide Oint [Calmoseptine Ointment] 1 applic TOPICAL BID PRN each 08/03/23 [Rx] Nystatin 100,000 Unit/gm Powd [Mycostatin Powder] 1 applic TOPICAL BID each 08/03/23 [Rx] Sodium Bicarbonate Tab 650 mg PO BID tab 08/03/23 [Rx] amLODIPine [Norvasc] 10 mg PO DAILY tab 08/03/23 [Rx] hydrALAZINE HCL [Apresoline] 25 mg PO TID tab 08/03/23 [Rx] oxyCODONE HCL [OxyIR] 5 mg PO Q3H PRN #2 tab 08/03/23 [Rx] Follow up Appointment(s)/Referral(s): Xavier Sanders MD [STAFF PHYSICIAN] - 1 Week Wilbert Calixto MD [STAFF PHYSICIAN] - 1 Week Daryl Celaya MD [Primary Care Provider] - 1-2 days Activity/Diet/Wound Care/Special Instructions: Patient will be contacted by Dr. Calixto' office to schedule outpatient surgery to remove ureteral calculus. Patient is going to [facility] Activity as tolerated Repeat labs CBC, CMP, magnesium in 2 to 3 days Outpatient follow-up with nephrology Continue regular diet renal with low potassium and dysphagia level 2 ground with aspiration precautions Head of the bed elevated 30 to 45 degrees at all times Continue with local wound care and outpatient follow-up with the wound care center Follow-up urology outpatient Continue with Ensure compact supplements twice daily with meals Patient will need outpatient hematology follow-up Discharge Disposition: TRANSFER TO SNF/ECF
[2023-08-03 17:33] VITALS: BP 150/70; PULSE 104; TEMP 98.7
--- NOTE | 2023-08-03 21:18 | P.PN ---
Subjective Progress Note Date: 08/03/23 Objective - Vital Signs Vital signs: Vital Signs Temp 98.7 F 08/03/23 16:00 Pulse 104 H 08/03/23 16:00 Resp 18 08/03/23 16:00 BP 150/70 08/03/23 16:00 Pulse Ox 97 08/03/23 16:00 FiO2 Intake & Output 08/03/23 08/03/23 08/04/23 06:59 18:59 06:59 Intake Total 20 20 Output Total 480 Balance -460 20 Intake: IV 20 20 Invasive Line 2 20 20 Oral 0 Output: Urine 480 Other: Voiding Method External Catheter External Catheter - Labs CBC & Chem 7: 08/03/23 10:24 08/03/23 10:24 Labs: Abnormal Lab Results - Last 24 Hours (Table) 08/03/23 08/03/23 Range/Units 10:24 10:24 WBC 11.5 H (3.8-10.6) k/uL RBC 3.70 L (3.80-5.40) m/uL Hgb 10.4 L (11.4-16.0) gm/dL MCHC 30.2 L (31.0-37.0) g/dL RDW 16.5 H (11.5-15.5) % Neutrophils # 9.9 H (1.3-7.7) k/uL Lymphocytes # 0.7 L (1.0-4.8) k/uL Chloride 115 H (98-107) mmol/L Carbon Dioxide 19 L (22-30) mmol/L Creatinine 1.47 H (0.52-1.04) mg/dL Glucose 141 H (74-99) mg/dL Alkaline Phosphatase 221 H (38-126) U/L Total Protein 5.1 L (6.3-8.2) g/dL Albumin 2.4 L (3.5-5.0) g/dL Assessment and Plan (1) Hypercalcemia Status: Acute Priority: High Code(s): E83.52 - HYPERCALCEMIA SNOMED Code(s): 60756535 (2) Hyperparathyroidism Status: Acute Priority: High Code(s): E21.3 - HYPERPARATHYROIDISM, UNSPECIFIED SNOMED Code(s): 37909142 Plan: Hypercalcemia, hyperparathyroidism -On admission calcium elevated at 13.9. Treated with IV hydration, lasix and zometa. Calcium 8.5 today -PTH 121. -Nuclear medicine parathyroid scan revealed uptake in inferior left thyroid bed region suggesting underlying parathyroid adenoma. -Elevated PTH, less likely a malignant process. Recommend f/u with Endocrinology or Surgery IgM [place] paraproteinemia -Immunofixation suspicious for IgM kappa paraproteinemia. -Immunoglobulins are WNL. Pending SPEP and K/L light chains -CBC showing elevated WBC, mostly neutrophiles, Hgb stable, and baseline, in 10 range
[2023-08-04 15:22] LABS: Free Kappa Lt Chain Qnt, Serum 5.56 mg/dL (0.33-1.94); Free Lambda Lt Chain Qnt, Seru 6.19 mg/dL (0.57-2.63)
[2023-08-04 22:46] LABS: Albumin 2.17 g/dL (3.80-4.90); Gamma Globulin 0.98 g/dL (0.70-1.50)
== END 2023-08-03 18:00 | DRG 987 ==
LOC: EC 22:39 → 4SSUR 23:06 → 3SCARD 07-27 00:40
PROVIDERS: ADMIT Hospitalist; ATTEND Hospitalist
PROC: 0T778DZ Dilation of Left Ureter with Intraluminal Device, Via Natural or Artificial Opening Endoscopic (ICD-10-PCS; principal; 2023-07-30 11:00)
PROC: BT1F1ZZ Fluoroscopy of Left Kidney, Ureter and Bladder using Low Osmolar Contrast (ICD-10-PCS; 2023-07-30 11:00)
DX: E21.0 Primary hyperparathyroidism (principal); G93.41 Metabolic encephalopathy; N17.0 Acute kidney failure with tubular necrosis; E87.0 Hyperosmolality and hypernatremia; N13.2 Hydronephrosis with renal and ureteral calculous obstruction; Z68.42 Body mass index [BMI] 45.0-49.9, adult; E44.0 Moderate protein-calorie malnutrition; I47.20 Ventricular tachycardia, unspecified; N13.8 Other obstructive and reflux uropathy; E87.1 Hypo-osmolality and hyponatremia; I50.9 Heart failure, unspecified; E86.0 Dehydration; L89.91 Pressure ulcer of unspecified site, stage 1; N18.9 Chronic kidney disease, unspecified; N28.1 Cyst of kidney, acquired; R00.1 Bradycardia, unspecified; E66.01 Morbid (severe) obesity due to excess calories; D34 Benign neoplasm of thyroid gland; M1A.9XX0 Chronic gout, unspecified, without tophus (tophi); E86.9 Volume depletion, unspecified; E55.9 Vitamin D deficiency, unspecified; K59.00 Constipation, unspecified; Z98.51 Tubal ligation status; M19.91 Primary osteoarthritis, unspecified site; Z79.899 Other long term (current) drug therapy; Z87.440 Personal history of urinary (tract) infections; Z87.442 Personal history of urinary calculi; Z96.659 Presence of unspecified artificial knee joint; Z90.49 Acquired absence of other specified parts of digestive tract
CPT/HCPCS: 36415; 74018; 76770; 78070; 80048; 80053; 80074; 81001; 81050; 82306; 82330; 82340; 82652; 82784; 83690; 83735; 83883; 83970; 84100; 84165; 84443; 84484; 85025; 86334; 86335; 87086; 87324; 93005; 93306; 96361; 96365; 96372; 96375; 99285

== ENCOUNTER 2023-09-09 07:34 | Day surgery (SDC) | payer MEDICARE ==
[2023-09-07 12:07] VITALS: BMI 45.7
--- NOTE | 2023-09-08 08:29 | P.GSHP ---
History of Present Illness H&P Date: 09/08/23 Chief Complaint: Hydronephrosis The patient is a 73-year-old white female who presented to [facility] with a several day history of fatigue and lethargy. She resides at [facility]. She was found to have significant hypercalcemia. CT scan showed evidence of a mild to moderate left hydronephrosis due to a 6.4 mm left proximal ureteral calculus, prominent extrarenal pelvis bilaterally, and a 6.2 cm left renal cyst. She denied pain. She has had no previous episodes of urolithiasis, but has been treated for UTIs in the past. She denies dysuria and hematuria. She underwent insertion of a left ureteral stent on July 30, 2023. The calculus refluxed back into the kidney. - Constitutional Constitutional: Reports fatigue, Reports lethargy - Genitourinary (Female) Genitourinary: Reports kidney stones, Denies dysuria, Denies hematuria Past Medical History Past Medical History: Heart Failure, COPD, GERD/Reflux, Hypertension, Osteoarthritis (OA), Skin Disorder Additional Past Medical History / Comment(s): recent admission kidney stones, currently at [facility] for rehab for ORIF rt femur a April 2023,able to sign own, Diagnosed with cellulits "3-4" years uai-[id number]-dxctdti infection rt leg-silvadene dressings,osteoporosis,fatty liver,spinal stenosis,gout,PVD,carotid stenosis History of Any Multi-Drug Resistant Organisms: None Reported Past Surgical History: Section, Cholecystectomy, Joint Replacement, Tonsillectomy, Tubal Ligation Additional Past Surgical History / Comment(s): pt states she has had 3 c- sections, tubal ligation, rt knee replacement-partial knee replacement removal due to infection has antibiotic spacer in, ORIF rt femur,lithotripsy w/ left ureter stent placement,carotid endarterectomy/stent Past Anesthesia/Blood Transfusion Reactions: No Reported Reaction Additional Past Anesthesia/Blood Transfusion Reaction / Comment(s): no problems with prior blood transfusion Smoking Status: Never smoker - Past Family History Mother Family Medical History: No Reported History Medications and Allergies Home Medications Medication Instructions Recorded Confirmed Type Acetaminophen Tab [Tylenol] 650 mg PO Q4H PRN MDD 3000mg 07/27/23 09/07/23 History Escitalopram Oxalate [Lexapro] 10 mg PO DAILY@0700 07/27/23 09/07/23 History Ferrous Sulfate [Iron (65 MG 325 mg PO MOWEFR@1300 07/27/23 09/07/23 History Elemental)] Nichole-Lanta 20 ml PO Q6H PRN 07/27/23 09/07/23 History L.acidoph,Paracasei, B.lactis 2 cap PO DAILY@1300 07/27/23 09/07/23 History [Probiotic] Liquacel 30 ml PO BID@0700,1700 07/27/23 09/07/23 History Omeprazole [PriLOSEC] 40 mg PO DAILY@0700 07/27/23 09/07/23 History Ondansetron [Zofran] 4 mg PO Q8H PRN 07/27/23 09/07/23 History Simethicone [Gas-X] 125 mg PO TID 07/27/23 09/07/23 History allopurinoL 100 mg PO DAILY 07/27/23 09/07/23 History bisacodyL [Dulcolax] 10 mg RECTAL Q3D PRN 07/27/23 09/07/23 History polyethylene glycoL 3350 [Miralax] 17 gm PO DAILY PRN 07/27/23 09/07/23 History hydrALAZINE HCL [Apresoline] 25 mg PO TID tab 08/03/23 09/07/23 Rx oxyCODONE HCL [OxyIR] 5 mg PO Q3H PRN #2 tab 08/03/23 09/07/23 Rx Cinacalcet [Sensipar] 30 mg PO MOTUWETHFR 09/07/23 09/07/23 History Doxycycline [Vibramycin] 100 mg PO BID 09/07/23 09/07/23 History Ergocalciferol [Vitamin D2 (1250 1 cap PO TU 09/07/23 09/07/23 History Mcg = 03802 Iu)] Sodium Bicarbonate Tab 1,300 mg PO BID 09/07/23 09/07/23 History amLODIPine [Norvasc] 10 mg PO QAM 09/07/23 09/07/23 History Allergies Allergy/AdvReac Type Severity Reaction Status Date / Time No Known Allergies Allergy Verified 07/27/23 09:56 Surgical - Exam - General well developed, well nourished, no distress - Respiratory normal respiratory effort - Abdomen Abdomen: soft, non tender, no guarding, no rigid, no rebound - Psychiatric oriented to time, oriented to person, oriented to place, speech is normal, memory intact Results - Imaging CT scan - abdomen: report reviewed, image reviewed Assessment and Plan (1) Ureterolithiasis Status: Acute Code(s): N20.1 - CALCULUS OF URETER SNOMED Code(s): 44832718 Plan: Cystoscopy, left ureteral stent removal, left ureteroscopy with Holmium laser lithotripsy and stone basketing. The procedure has been reviewed in detail with the patient and her family. They have been made aware of potential risks, which include anesthesia, bleeding, infection, ureteral injury, and inability to successfully remove the calculus.
[~2023-09-09 07:34] MED LIST: LIDOCAINE 1% (10MG/ML) FOR IV START INTRADERMA PRN; MIDAZOLAM 2 MG/2 ML VIAL IV PRN; fentaNYL (PF) 50 MCG/ML 2 ML AMP IVP PRN
[2023-09-09] MEDS: IV FLUID CONTINUATION 1,000 ML IV ONE (08:54)
[2023-09-09] MEDS: ONDANSETRON 4 MG/2 ML VIAL IVP ONE (09:11)
[2023-09-09] MEDS: DEXAMETHASONE SOD PHOSPHATE 4 MG/ML 1 ML VIAL IV ONE (09:11)
[2023-09-09] MEDS: LACTATED RINGERS 1,000 ML IV SCH (09:12)
[2023-09-09] MEDS ORDERED: GLYCOPYRROLATE 0.2 MG/ML 2 ML VIAL ONE (09:12)
[2023-09-09] MEDS ORDERED: PROPOFOL 10 MG/ML 20 ML VIAL IV ONE (09:12)
[2023-09-09] MEDS ORDERED: ROCURONIUM 10 MG/ML (5 ML VIAL) IV ONE (09:12)
[2023-09-09] MEDS ORDERED: NEOSTIGMINE 1 MG/ML 10 ML VIAL ONE (09:12)
[2023-09-09] MEDS ORDERED: fentaNYL (PF) 50 MCG/ML 2 ML AMP ONE (09:12)
[2023-09-09] MEDS ORDERED: LIDOCAINE 1% INJ 10MG/ML (20 ML MDV) ONE (09:12)
[2023-09-09] MEDS: ceFAZolin 3 GM in SODIUM CHLORIDE 0.9% 100 ML IVPB PRN (09:17)
[2023-09-09 10:53] VITALS: TEMP 97.7
--- NOTE | 2023-09-09 11:10 | P.OP ---
Date of Procedure: 09/09/23 Preoperative Diagnosis: Left renal calculus Postoperative Diagnosis: Left renal calculi Procedure(s) Performed: Cystoscopy, left ureteral stent removal, left ureteroscopy with Holmium laser lithotripsy and stone basketing Anesthesia: ZARI Surgeon: Wilbert Calixto Estimated Blood Loss (ml): 10 IV fluids (ml): 250 Pathology: other (Left renal calculus fragments, sent for chemical analysis) Condition: stable Disposition: PACU Indications for Procedure: The patient is a 73-year-old white female who presented to [facility] with a several day history of fatigue and lethargy. She resides at [facility]. She was found to have significant hypercalcemia. CT scan showed evidence of a mild to moderate left hydronephrosis due to a 6.4 mm left proximal ureteral calculus, prominent extrarenal pelvis bilaterally, and a 6.2 cm left renal cyst. She denied pain. She has had no previous episodes of urolithiasis, but has been treated for UTIs in the past. She denies dysuria and hematuria. She underwent insertion of a left ureteral stent on July 30, 2023. The calculus refluxed back into the kidney. She now comes for ureteroscopic removal of the calculus. Operative Findings: Left midpole renal calculi, fragmented completely. Description of Procedure: The patient was taken to the operating room and placed in the dorsolithotomy position, with legs supported in Andrew stirrups. The external genitalia was prepped and draped sterilely. The 30 lens was used to introduce the 21-Kenyan Concepcion cystoscopic sheath through the urethra and into the bladder under direct vision. The bladder was examined in its entirety. No abnormalities were seen. Grasping forceps were used to grasp the distal end of the left ureteral stent, which was withdrawn along with the cystoscope. A 0.038 inch Glidewire was passed through the stent and up to the left renal pelvis. The stent was removed, and an 11/13-Kenyan ureteral access catheter was passed over the wire, up to the proximal ureter. The Concepcion Unkasoft Advergamingra flexible ureteroscope was then passed through the ureteral access catheter sheath and up to the renal pelvis. Urine within the renal pelvis was somewhat cloudy, and cleared with irrigation. The calculus was located within a midpole calyx. There were actually 2 calculi immediately adjacent to 1 another. Several smaller calculi were seen in other calyces. The 272 micron Holmium laser probe was passed through the ureteroscope, and lithotripsy was performed to fragment all of the calculi. The smallest calculi were essentially dusted, while the 2 midpole calculi were fragmented. A 1.9 Kenyan 0 tip nitinol basket was used to remove calculus fragments, which were saved and sent for chemical analysis. Final inspection of the renal pelvis showed no residual calculus fragments exceeding the size of the fiber tip, and none were seen on fluoroscopy. Pullout ureteroscopy showed no evidence of ureteral trauma. The patient tolerated the procedure well and was taken to the recovery room in stable condition. [facility] Report: Procedure Acuity: Elective Stone Size and Location: 6 mm, left midpole calyx Ureteral Dilation: No Ureteral Access Sheath Used: Yes Stone Sent for Analysis: Yes All Stones/Fragments Were Removed with a Basket: Yes Complications: No Preoperative Antibiotics Given: Yes Stent Placed: No Discharge Medications: None
[2023-09-09] MEDS: HYDROmorphone 0.5 MG/0.5 ML SYRINGE IVP PRN (11:20)
--- NOTE | 2023-09-09 12:05 | FL ---
EXAMINATION TYPE: FL guidance operating room Intraoperative/procedural fluoroscopic services were pro vided. Total fluoroscopy time is 13.7 seconds with a total of 1 submitted images to PACS. Please see the operative/procedural note for further details. DAP: 1.6028 Gycm2
[2023-09-09 12:07] VITALS: RESP 16
[2023-09-09 12:23] VITALS: BP 154/68; PULSE 86
== END 2023-09-09 13:07 ==
LOC: OR 07:34
PROVIDERS: ATTEND Urology
DX: N13.2 Hydronephrosis with renal and ureteral calculous obstruction (principal); E83.52 Hypercalcemia; I11.0 Hypertensive heart disease with heart failure; I50.9 Heart failure, unspecified; J44.9 Chronic obstructive pulmonary disease, unspecified; K21.9 Gastro-esophageal reflux disease without esophagitis; K76.0 Fatty (change of) liver, not elsewhere classified; M10.9 Gout, unspecified; M19.90 Unspecified osteoarthritis, unspecified site; M81.0 Age-related osteoporosis without current pathological fracture; Z90.49 Acquired absence of other specified parts of digestive tract; Z90.89 Acquired absence of other organs; Z98.51 Tubal ligation status; Z79.899 Other long term (current) drug therapy; Z79.1 Long term (current) use of non-steroidal anti-inflammatories (NSAID)
CPT/HCPCS: 52353; 36410; 76937; 82365; C1769; J1100; J2710; J0690; J2405; J2001; J3010; J2704; J1170; J1596